=== PATIENT | male | born 1985 | race Caucasian/White ===

== ENCOUNTER → 2021-01-31 09:32 | Outpatient (CLI) | payer OTHER, SELFPAY | PROVIDERS: PCP Internal Medicine; Visit Provider Physician Assistant | DX: U07.1 COVID-19 (principal) | CPT/HCPCS: 87635; U0005; U0003 ==

== ENCOUNTER 2021-02-06 18:43 | Inpatient (IN) | payer OTHER, SELFPAY ==
[2021-02-06] VITALS (13 sets, daily range): BP systolic 100–149; BP diastolic 66–83; PULSE 83–127; RESP 12–52; TEMP 36–37.5; O2SAT 78–97; BMI 42.2; BMI 43.6
--- NOTE | 2021-02-06 18:53 | EKG12_ITS ---
Test Reason : SOB Blood Pressure : / mmHG Vent. Rate : 119 BPM Atrial Rate : 119 BPM P-R Int : 158 ms QRS Dur : 102 ms QT Int : 340 ms P-R-T Axes : 056 086 -02 degrees QTc Int : 478 ms Sinus tachycardia T wave abnormality, consider inferior ischemia Abnormal ECG Confirmed by TERA JAUREGUI, CHARLY ([id number]), graphics editor MARSHA CARMICHAEL ([id number]) on 02/11/2021 10:15:20 AM Referred By: DAE Confirmed By:CHARLY HALEY MD
--- NOTE | 2021-02-06 18:54 | ED.VIS.DYS ---
HPI History of Present Illness Chief Complaint: Shortness of Breath Informant: patient and spouse/S.O. Onset/Context/Timing Onset: Days Context: gradual Timing: Continuous Current Severity: Moderate Maximum Severity: Severe Worsened by: Exertion, Lying flat and Coughing Relieved by: Oxygen Associated Symptoms cough, fever and chills Chest Pain: Positive for None Narrative Narrative: 35-year-old male no sniffing past medical history. On 31 January he was diagnosed positive for Covid. He has been on no therapy. He is unvaccinated. He is not been treated with monoclonal antibodies nor is he been on any steroids. Is progressively gotten more short of breath. No chest pain. No hemoptysis. No prior history of DVT or PE or other risk factors. PE Risk Factors: Negative for Cancer, OCP + Smoking + > 35, Prior DVT or PE, Recent immobilization, Recent surgery and Recent travel Prior similar symptoms: No Recent Illness/Hospitalization: No PFSH PFSH Medical History Broken wrist Home Medications NK 09/20/20 [History Last Taken Unknown] Allergy/AdvReac Type Severity Reaction Status Date / Time No Known Allergies Allergy Verified 02/06/21 18:50 Family History Father Arthritis Grandfather Cancer Mother Hypertension Other Breast cancer Social History Smoking Status: Never smoker Smokeless tobacco user: chewing tobacco alcohol intake: current alcohol intake frequency: a few times a month Alcohol type: beer substance use type: does not use what type of physical activity do you participate in: none ROS ROS ED ROS Narrative Cough, shortness of breath and myalgias. Review of Systems ROS Unobtainable: Denies due to encephalopathy Constitutional Constitutional ED: Reports chills and fever(s) Eyes Eyes: Denies change in vision ENT ENT ED: Denies ear pain Cardiovascular Cardiovascular: Denies chest pain or palpitations Respiratory/Chest Respiratory/Chest: Reports cough and dyspnea Gastrointestinal Gastrointestinal: Denies abdominal pain, diarrhea, nausea or vomiting Genitourinary Genitourinary ED: Denies dysuria Musculoskeletal Musculoskeletal: Reports myalgias Integumentary Denies rash Neurologic Neurologic: Denies headache(s) Psychiatric Psychiatric: Denies depression Endocrine Endocrinology: Denies polyuria Hematologic/Lymphatic Hematologic/Lymphatic: Denies easy bruising Allergic/Immunologic Allergic/Immunologic ED: Denies urticaria EXAM Physical Exam Narrative Exam Narrative: 35-year-old male obviously hypoxic. Pulse ox 78%. Respiratory distress. Accelerated respiratory rate and pulse. HEENT exam unremarkable. Neck nontender no JVD. No lymphadenopathy. Lungs clear to auscultation bilaterally. Heart regular rhythm no murmur. Tachycardia rate about 127. Abdomen soft nontender. Moving all 4 extremities. Calves nontender without edema or cords. Neurologically, he is awake alert with no focal motor deficits. Const Vital Signs: 02/06/21 18:48 02/06/21 18:53 02/06/21 19:08 Temperature 97.7 F L Temperature Source Temporal Pulse Rate 127 H 118 H Respiratory Rate 52 H 44 H Respiratory Effort Short of Breath Labored Pursed Lip Respiratory Depth Respiratory Pattern Tachypnea Tachypnea Blood Pressure 149/83 H Blood Pressure Mean 105 Pulse Ox 78 96 Oxygen Delivery Method Non-Rebreather @ 15L/min Non-Rebreather Oxygen Flow Rate (L/min) 15 Fraction of Inspired Oxygen (FIO2) 90 02/06/21 19:13 02/06/21 19:15 02/06/21 20:10 Temperature 99.5 F H Temperature Source Temporal Pulse Rate 104 H Respiratory Rate 40 H Respiratory Effort Short of Breath Labored Respiratory Depth Deep Respiratory Pattern Tachypnea Blood Pressure 100/67 Blood Pressure Mean 78 Pulse Ox 97 Oxygen Delivery Method Bi-pap Bi-pap Oxygen Flow Rate (L/min) Fraction of Inspired Oxygen (FIO2) 100 80 100 02/06/21 20:49 02/06/21 20:51 02/06/21 21:10 Temperature 97.6 F L Temperature Source Temporal Pulse Rate 99 94 Respiratory Rate 43 H 38 H Respiratory Effort Respiratory Depth Respiratory Pattern Tachypnea Blood Pressure 126/80 H Blood Pressure Mean 95 Pulse Ox 96 94 Oxygen Delivery Method Bi-pap Oxygen Flow Rate (L/min) Fraction of Inspired Oxygen (FIO2) 80 65 Positive well nourished, well developed and obese; Negative for cachectic, contractures or unkempt General Appearance ED: well developed; Negative for unkempt, cachectic, contractures, NAD or pallor Nutritional Appearance: obese; Negative for cachectic HEENT Reports moist mucous membranes atraumatic; Negative for trauma or tenderness Eyes PERRL and EOMs intact bilaterally Neck no lymphadenopathy, supple, no meningeal signs and no JVD General: Negative for tenderness Resp No normal respiratory effort and clear to auscultation bilaterally Auscultation: Negative for rales, rhonchi or wheezes Cardio S1 normal heart sound, S2 normal heart sound and no murmurs; Negative for regular rate or regular rhythm Rate: tachycardic GI non-tender, non-distended and no masses Auscultation: normoactive bowel sounds Palpation: soft; Negative for tender, guarding or rebound tenderness present Back/Spine no CVA tenderness and normal to inspection General Back: Negative for CVA tenderness or tenderness Extremity normal to inspection General Extremety ED: Negative for edema or tenderness General Extremity: Negative for edema Neuro oriented x3 Sensorium / Orientation: alert, oriented to person and oriented to place; Negative for oriented to time, orientation impaired, confused, lethargic or stuporous Motor Exam: strength 5/5 throughout Psych mental status grossly normal Appearance: Negative for unkempt Mood & Affect: Negative for depressed or tearful Thought Process: normal thought process Skin no wounds General Skin Exam: Negative for jaundice or pallor Lesions: no lesions Rashes: no rashes MDM MDM MDM Narrative Medical decision making narrative: 35-year-old male history of Covid with respiratory distress and hypoxia. On 15 L he still hypoxic in the 80s will be placed on BiPAP. Also be given IV Decadron. He will need to be admitted. He will undergo chest x-ray and labs. If his D-dimer is elevated he will undergo a CTA. Repeat exam at 9:55 PM patient is doing a lot better on BiPAP. His oxygenation is now 95%. I went over test results with both he and his significant other in the room. I already spoken the hospitalist will be admitted to the ICU. We are awaiting the CTA of the chest results. Lab Data Attestation: I reviewed the patient's lab results. Lab results narrative: CBC shows a white count of 15.8. Hemoglobin 16. Platelets of 410. His D-dimer is elevated 4.1 therefore will order a CTA. Electrolytes show a gap at 9 and normal BUN and creatinine. Glucose of 139. Chest x-ray is consistent with Covid pneumonitis with bilateral infiltrates. Labs: Laboratory Results - last 24 hr 02/06/21 02/06/21 02/06/21 18:45 18:45 19:05 WBC 15.8 H RBC 5.52 Hgb 16.2 Hct 48.3 MCV 87.5 MCH 29.3 MCHC 33.5 RDW Std Deviation 44.3 H RDW Coeff of Kylie 13.9 Plt Count 410 MPV 9.8 Immature Gran % (Auto) 3.500 H Neut % (Auto) 80.1 H Lymph % (Auto) 11.1 L [place] % (Auto) 4.6 Eos % (Auto) 0.2 Baso % (Auto) 0.5 Absolute Neuts (auto) 12.7 H Absolute Lymphs (auto) 1.76 Nucleated RBC % 0.7 Differential Comment SCANNED D-Dimer Quant (PE/DVT) 4.12 H* Sodium 135 L Potassium 3.9 Chloride 103 Carbon Dioxide 23.0 Anion Gap 9 BUN 15 Creatinine 1.11 Estim Creat Clear Calc 89.86 Est GFR (MDRD) Af Amer 97 Est GFR (MDRD) Non-Af 80 BUN/Creatinine Ratio 13.5 Glucose 139 H Calcium 8.6 Radiography Chest X-Ray - ED: 1 View, Read by ED Physician, Heart, Mediastinum, Bony Structures, No Acute Disease, Chronic Changes, Right Infiltrate and Left Infiltrate Diagnostic Testing: Clinical Impression(s) from Imaging Studies Chest X-Ray 02/06/21 19:22 IMPRESSION: Hazy bilateral airspace disease consistent with Covid pneumonia. at 2023 Reported and signed by: Rashard Garcia MD Electronically Signed: Rashard Garcia MD at 20:22 EST Tel , Service support , Portable, single view chest x-ray interpreted by myself is consistent with bilateral infiltrates consistent with Covid pneumonitis. Rhythm Strip Rhythm Strip: Sinus Tach Rate: 119 Ectopy: None EKG Initial EKG: Attestation: I personally reviewed and interpreted this EKG as follows: Interpretation: Sinus Rhythm, No Acute Injury Pattern and Sinus Tachycardia Comments: Sinus tachycardia rate of 119 no acute signs of DE. He did have inverted T waves in lead III and aVF. No old EKG available for comparison. Critical Care Time Critical care time (excluding procedures): 30-74 minutes, Discussing w/Patient &/or Family/Information Services Tech, Discussing w/Consultants, Arranging Admission or Transfer, Performing Direct Patient Care at Bedside and - (35 min) Discharge Plan Dx/Rx/DC Orders Clinical Impression: Pneumonia due to COVID-19 virus, Hypoxia, Respiratory failure Disposition Disposition: Acute Care Hospital [facility]
[2021-02-06] MEDS: dexAMETHasone 20 MG/5 ML Vial IV (19:01)
[2021-02-06 19:16] LABS: Absolute Lymphocyte Count 1.76 X10^3/uL (0.83-4.51); Absolute Neutrophil Count 12.7 X10^3/uL (2.0-7.7); Basophil# 0.08 X10^3/uL; Basophil% 0.5 % (0-1); Eosinophil# 0.03 X10^3/uL; Eosinophils% 0.2 % (0-5); Hematocrit 48.3 % (40-54); Hemoglobin 16.2 g/dL (13.0-16.5); Lymphocyte # 1.76 X10^3/ul (0.83-4.51); Lymphocyte % 11.1 % (19-41); Mean Corp Hgb Conc 33.5 g/dL (32-36); Mean Corpuscular Hgb 29.3 pg (27.0-32.0); Mean Corpuscular Volume 87.5 fL (80-94); Mean Platelet Vol. 9.8 fl (6.2-12.0); Monocyte# 0.72 X10^3/uL; Monocyte% 4.6 % (0-10); NRBC Flagged by Analyzer 0.7 % (0-5); Neutrophil # 12.65 X10^3/uL (2.7-7.7); Neutrophil % 80.1 % (47-70); POSITIVE MORPHOLOGY YES; Platelet Count 410 K/mm3 (150-450); RBC Distribution Width CV 13.9 % (11.6-14.6); RBC Distribution Width SD 44.3 fl (35.1-43.9); Red Blood Count 5.52 M/mm3 (4.6-6.2); White Blood Count 15.8 K/mm3 (4.4-11.0)
[2021-02-06 19:17] LABS: Differential Indicated SCAN CRITERIA MET
--- NOTE | 2021-02-06 19:22 | RAD_ITS ---
HISTORY: covid. hypoxia EXAMINATION/TECHNIQUE: XR Chest 1 View: Portable upright AP chest x-ray COMPARISON: None FINDINGS: LINES/DEVICES: None. LUNGS: Hazy bilateral airspace opacities without consolidation or pleural effusion. No pneumothorax. MEDIASTINUM AND CARDIOVASCULAR STRUCTURES: Cardiac silhouette not enlarged. Central airways and mediastinal contour are unremarkable. BONES AND SOFT TISSUES: No acute bony abnormalities. RAD/Chest 1 View (Portable) IMPRESSION: Hazy bilateral airspace disease consistent with Covid pneumonia. at 2023 Reported and signed by: Rashard Garcia MD Electronically Signed: Rashard Garcia MD at 20:22 EST Tel , Service support ,
[2021-02-06 19:29] LABS: Anion Gap 9 (5-15); BUN 15 mg/dL (7-18); BUN/Creat Ratio 13.5 RATIO (10-20); Calcium,Total 8.6 mg/dL (8.5-10.1); Chloride 103 mmol/L (98-107); Creatinine, Serum 1.11 mg/dL (0.70-1.30); EST Glomerular Filtration Rate 80 mL/min (>60); Est Glom Filt Rate - Afr Amer 97 mL/min (>60); Estimated Creatinine Clearance 89.86 ml/min; Glucose 139 mg/dL (74-106); Potassium 3.9 mmol/L (3.5-5.1); Sodium Level 135 mmol/L (136-145)
[2021-02-06 19:53] LABS: D-Dimer Quantitative (DVT/PE) 4.12 FEU/ug/m (0.27-0.49)
--- NOTE | 2021-02-06 19:54 | ED.RN ---
dr ledezma aware of [facility] results.
[2021-02-06 19:57] LABS: Differential Comment SCANNED
--- NOTE | 2021-02-06 20:14 | CT_ITS ---
HISTORY: hypoxia. elevated d-dimer EXAMINATION: CTA Chest WO/W Contrast Injection TECHNIQUE: Helically acquired images were obtained of the chest following IV contrast as per pulmonary angiogram protocol with 3D reconstructions. A radiation dose optimization technique was used for this scan. IV Contrast dosage and agent: 100 CC ISOVUE 370 COMPARISON: None FINDINGS: LUNGS, PLEURA AND LARGE AIRWAYS: Extensive bilateral groundglass opacities with bibasilar consolidations. No pleural effusions or pneumothorax THYROID: No thyroid lesions. PULMONARY ARTERIES: Extensive breathing motion artifacts, no definite pulmonary embolism. AORTA AND GREAT VESSELS: No aneurysm or dissection. HEART AND PERICARDIUM: Heart size is normal. No pericardial effusion. MEDIASTINUM AND LAURO: Right hilar adenopathy. Esophagus is unremarkable. No hiatal hernia. UPPER ABDOMEN: No acute pathology. BONES: No acute or aggressive abnormality. CT/CTA Chest W/WO Contrast IMPRESSION: No definite pulmonary emboli. Study limited by multiple breathing motion artifacts. Extensive pulmonary findings with ARDS pattern. In the appropriate clinical setting this likely represents atypical or viral pneumonia. Individualized dose optimization techniques were used for this CT. at 2211 Reported and signed by: Rashard Garcia MD Electronically Signed: Rashard Garcia MD at 22:10 EST Tel , Service support ,
--- NOTE | 2021-02-06 21:58 | PCM.HP.STD ---
HPI - General General Date of Admission: 02/06/21 HPI Narrative ALYSON TORRE, is a 35 M with a significant history of morbid obesity who presents to the emergency department with progressive worsening Covid-like symptoms. Patient's covid-like symptoms has been going on for 13 to 14-day. He described the Covid-like symptoms as trouble breathing; myalgia; fever and dry cough. He had chills that has since gone away. He reports anosmia and poor appetite. Patient has dysgeusia, dry and cracked tongue. On the day of presentation patient had increase in shortness of breath. Per 's patient's lips and fingernails look blue blue so patient was brought to the emergency department. Patient tested Covid positive for Covid on 01/31/2021. [facility] Medical History Broken wrist Medical History no medical history Home Medications NK 09/20/20 [History Last Taken Unknown] Allergy/AdvReac Type Severity Reaction Status Date / Time No Known Allergies Allergy Verified 02/06/21 18:50 Family History Father Arthritis Grandfather Cancer Mother Hypertension Other Breast cancer Family History no significant family his Surgical History no surgical history Social History Smoking Status: Never smoker Smokeless tobacco user: chewing tobacco alcohol intake: current alcohol intake frequency: a few times a month Alcohol type: beer substance use type: does not use what type of physical activity do you participate in: none ROS ROS Narrative Constitutional: Reports fever, chills, fatigue, anorexia .denies change in weight Eyes: Denies blurry vision, change in eye color, change in vision, discharge from eye(s), double vision, erythema, eye pain, loss of vision or other HEENT: Denies abnormal hearing, dysphagia, ear pain, epistaxis, headache(s), hearing loss, nasal congestion, nasal discharge, post nasal drip, sinus pressure, sore throat or other Cardiovascular: Denies chest pain or palpitations. Denies dyspnea on exertion, orthopnea and paroxysmal nocturnal dyspnea Respiratory/Chest: Reports dry cough and shortness of breath. Gastrointestinal: Denies abdominal pain, coffee ground emesis, constipation, diarrhea, dyspepsia, hematemesis, hematochezia, loose stools, melena, nausea, vomiting or other Genitourinary: Denies burning urination, difficulty urinating, dysuria, hematuria, nocturia, urinary frequency, urinary hesitancy, urinary incontinence, urinary urgency or other Musculoskeletal: Denies arthralgias, back pain, joint pain, joint stiffness, joint swelling, myalgias, neck pain or other Neurologic: Denies abnormal gait, abnormal speech, confusion, disequilibrium, dizziness, focal weakness, headache(s), numbness, paresthesias, seizure-like activity, seizures, syncope, tingling, tremor(s) or other Psychiatric: Denies anxiety, depression, homicidal ideation, suicidal ideation or other Endocrinology: Denies change in body appearance, cold intolerance, excessive sweating, heat intolerance, polydipsia, polyuria or other Hematologic/Lymphatic: Denies anemia, easy bleeding, easy bruising, lymphadenopathy or other Integumentary: Denies rashes Allergic/Immunologic: Denies rhinitis, hives, eczema, asthma or other Vital Signs Vital Signs Vital Signs: 02/06/21 18:48 02/06/21 18:53 02/06/21 19:08 Temperature 97.7 F L Temperature Source Temporal Pulse Rate 127 H 118 H Respiratory Rate 52 H 44 H Respiratory Effort Short of Breath Labored Pursed Lip Respiratory Depth Respiratory Pattern Tachypnea Tachypnea Blood Pressure 149/83 H Blood Pressure Mean 105 Pulse Ox 78 96 Oxygen Delivery Method Non-Rebreather @ 15L/min Non-Rebreather Oxygen Flow Rate (L/min) 15 Fraction of Inspired Oxygen (FIO2) 90 02/06/21 19:13 02/06/21 19:15 02/06/21 20:10 Temperature 99.5 F H Temperature Source Temporal Pulse Rate 104 H Respiratory Rate 40 H Respiratory Effort Short of Breath Labored Respiratory Depth Deep Respiratory Pattern Tachypnea Blood Pressure 100/67 Blood Pressure Mean 78 Pulse Ox 97 Oxygen Delivery Method Bi-pap Bi-pap Oxygen Flow Rate (L/min) Fraction of Inspired Oxygen (FIO2) 100 80 100 02/06/21 20:49 02/06/21 20:51 02/06/21 21:10 Temperature 97.6 F L Temperature Source Temporal Pulse Rate 99 94 Respiratory Rate 43 H 38 H Respiratory Effort Respiratory Depth Respiratory Pattern Tachypnea Blood Pressure 126/80 H Blood Pressure Mean 95 Pulse Ox 96 94 Oxygen Delivery Method Bi-pap Oxygen Flow Rate (L/min) Fraction of Inspired Oxygen (FIO2) 80 65 Weight Weight: 126 kg Body Mass Index (BMI) 42.2 Physical Exam Narrative Physical exam: General: Well-nourished, well-developed. Head: Normocephalic, atraumatic, no tenderness Eyes: PERRLA, EOMI ENT, no trauma, moist mucous membranes, no rhinorrhea Neck: Nontender, full range of motion, no spinal tenderness, deformities, step-off CVS: Regular rate and rhythm. S1-S2 present. No murmur, gallop or rub. Respiratory : On BiPAP; tachypnea and rales. Abdomen: Soft, nontender, nondistended, normal bowel sounds, no masses : Deferred Back: Nontender, no CVA tenderness, no midline spinal tenderness, deformities, step-offs Extremities: Nontender full range of motion, no trauma Skin: Normal color, no trauma, abrasions Neuro: Alert, oriented, cranial nerves II through XII grossly intact. Psychiatry: Normal mood. Normal affect. Not depressed. Not anxious. Results Lab / Micro Data Result Diagrams: 02/07/21 03:52 02/07/21 04:54 Labs: Laboratory Results - last 24 hr 02/06/21 18:45: WBC 15.8 H, RBC 5.52, Hgb 16.2, Hct 48.3, MCV 87.5, MCH 29.3, MCHC 33.5, RDW Std Deviation 44.3 H, RDW Coeff of Kylie 13.9, Plt Count 410, MPV 9.8, Immature Gran % (Auto) 3.500 H, Neut % (Auto) 80.1 H, Lymph % (Auto) 11.1 L, [place] % (Auto) 4.6, Eos % (Auto) 0.2, Baso % (Auto) 0.5, Absolute Neuts (auto) 12.7 H, Absolute Lymphs (auto) 1.76, Nucleated RBC % 0.7, Differential Comment SCANNED 02/06/21 18:45: Sodium 135 L, Potassium 3.9, Chloride 103, Carbon Dioxide 23.0, Anion Gap 9, BUN 15, Creatinine 1.11, Estim Creat Clear Calc 89.86, Est GFR (MDRD) Af Amer 97, Est GFR (MDRD) Non-Af 80, BUN/Creatinine Ratio 13.5, Glucose 139 H, Calcium 8.6 02/06/21 19:05: D-Dimer Quant (PE/DVT) 4.12 H* Rhythm Strip Rhythm Strip: Sinus Tach Rate: 119 Ectopy: None Radiology Impression Chest X-Ray 02/06/21 19:22 IMPRESSION: Hazy bilateral airspace disease consistent with Covid pneumonia. at 3 Reported and signed by: Rashard Garcia MD Electronically Signed: Rashard Garcia MD at 20:22 EST Tel , Service support , Assessment & Plan Assessment/Plan (1) Pneumonia due to COVID-19 virus: (2) Respiratory failure with hypoxia: QUALIFIERS: Chronicity: acute Qualified Code(s): J96.01 - Acute respiratory failure with hypoxia PLAN: Acute hypoxemic respiratory failure secondary to SARS- COV 2 Tachypnea with respiratory rate as high as 37. Required BiPAP with FiO2 of 80%. Continue oxygen supplementation to keep oxygen saturation to at least 90%. Review of record showed that patient had positive Covid test on 01/31/2021. Chest x-ray and chest CT was independently interpreted and agree radiologist interpretation of multifocal infiltrates without any atrial dissection or pulmonary embolism. Received Decadron at the emergency department and continued. Will admit patient to intensive care unit and consult metal fabrication supervisor and blood or blood bank technician. N.p.o. while on BiPAP. Review of labs showed white count of 15.8 with bandemia of 3.5%; neutrophilia of 80% and lymphopenia of 11.1. D-dimer was elevated at 4.12, likely secondary to inflammation. Procalcitonin is unremarkable at 0.26. Trend CBC and CMP. Morbid Obesity. BMI: 37.4. Complicates care. Lifestyle modification recommended. DVT: Lovenox ordered Charges/Coding Visit Charges Inpatient E&M: 95699 Init Hosp L3
[2021-02-07] VITALS (32 sets, daily range): BP systolic 90–138; BP diastolic 72–106; PULSE 70–98; RESP 12–37; TEMP 36.4–36.8; O2SAT 88–97
--- NOTE | 2021-02-07 00:26 | NURSING ---
PANDEMIC DOCUMENTATION DATE: 02/06/21 TIME: 1420
[2021-02-07] MEDS: Enoxaparin 40 MG/0.4 ML Syringe SC ×3 (00:46→20:11)
[2021-02-07 01:02] LABS: Procalcitonin 0.26 ng/mL (0.00-0.09)
[2021-02-07] MEDS: Acetaminophen 325 MG Tablet 650 MG PO (02:10)
[2021-02-07 04:14] LABS: Absolute Lymphocyte Count 1.11 X10^3/uL (0.83-4.51); Absolute Neutrophil Count 9.8 X10^3/uL (2.0-7.7); Basophil# 0.08 X10^3/uL; Basophil% 0.7 % (0-1); Hematocrit 49.1 % (40-54); Hemoglobin 16.2 g/dL (13.0-16.5); Lymphocyte # 1.11 X10^3/ul (0.83-4.51); Lymphocyte % 9.5 % (19-41); Mean Corpuscular Hgb 28.9 pg (27.0-32.0); Mean Corpuscular Volume 87.7 fL (80-94); Monocyte# 0.28 X10^3/uL; Monocyte% 2.4 % (0-10); NRBC Flagged by Analyzer 0.3 % (0-5); Neutrophil # 9.75 X10^3/uL (2.7-7.7); Neutrophil % 83.5 % (47-70); POSITIVE MORPHOLOGY YES; Platelet Count 411 K/mm3 (150-450); RBC Distribution Width CV 14.7 % (11.6-14.6); RBC Distribution Width SD 46.1 fl (35.1-43.9); White Blood Count 11.7 K/mm3 (4.4-11.0)
[2021-02-07 04:16] LABS: Differential Indicated SCAN CRITERIA MET
[2021-02-07 04:31] LABS: Differential Comment SCANNED
[2021-02-07 05:21] LABS: ALB/GLOB Ratio 0.5 RATIO (0.9-2.4); AST(SGOT) 55 U/L (15-37); Alanine Aminotransfer ALT/SGPT 110 U/L (16-61); Albumin, Serum 2.7 g/dL (3.2-5.0); Alkaline Phosphatase 69 U/L (45-117); Anion Gap 11 (5-15); BUN 21 mg/dL (7-18); BUN/Creat Ratio 19.8 RATIO (10-20); Calcium,Total 8.6 mg/dL (8.5-10.1); Chloride 102 mmol/L (98-107); Creatinine, Serum 1.06 mg/dL (0.70-1.30); EST Glomerular Filtration Rate 84 mL/min (>60); Est Glom Filt Rate - Afr Amer 102 mL/min (>60); Globulin 5.6 g/dL (2.2-4.2); Glucose 151 mg/dL (74-106); Potassium 4.6 mmol/L (3.5-5.1); Protein, Total 8.3 g/dL (6.4-8.2); Sodium Level 137 mmol/L (136-145)
--- NOTE | 2021-02-07 07:38 | CON.PCM.CC_ITS ---
Assessment & Plan Assessment/Plan (1) Respiratory failure with hypoxia: QUALIFIERS: Chronicity: acute Qualified Code(s): J96.01 - Acute respiratory failure with hypoxia (2) Pneumonia due to COVID-19 virus: (3) Obesity (BMI 30-39.9): PLAN: RECOMMENDATIONS: 1. Continue Decadron. Monitor for complications 2. Check CRP to see if baricitinib would be helpful 3. Wean BiPAP FiO2 as tolerated 4. Hold on diuresis for now 5. Encourage Acapella, incentive spirometer and prone positioning as leo ated 6. Prophylactic anticoagulation for now 7. Check sputum culture for possible superinfection. Hold empiric antibiotics for now IMPRESSIONS: 1. Acute hypoxic respiratory failure secondary to ARDS secondary to COVID-19 Patient with very protracted presentation. Patient would not be a candidate for Remdesivir. Patient is appropriately on Decadron therapy. We will check a CRP to see if baricitinib would be helpful. Infectious diseases consulted. Continue to wean oxygen as tolerated. Patient may have an element of improvement following initiation of anti-inflammatories. We will hold on diuresis for now as patient appears to be volume neutral to slightly dehydrated. Would not recommend aggressive fluid resuscitation as this has been shown to worsen oxygenation. Will check a sputum culture as patient does have a leukocyt osis with protracted presentation. Leukocytosis may be a stress response, so we will hold off on empiric antibiotics for now unless patient acutely decompensates. Cannot exclude the patient may require intubation in the next 12 to 24 hours pending response to initial therapy. 2. Obesity/delayed presentation/nonvaccinated status Complicates care, management, recovery and prognosis. Patient will be at risk for hyperglycemia given obesity and steroid therapy. May initiate blood sugar checks if BMP shows elevation. TIME: 32 minutes critical care time spent addressing patient's acute hypoxic respiratory failure, review of all data and collaboration with care team HPI Consult Data Date of Consult: 02/07/21 HPI Narrative HPI Narrative: ALYSON TORRE is a 35 M, with no reported past medical history, who presents to [facility] secondary to progressive shortness of breath. Patient reportedly has had symptoms since January 24, but tested positive on January 31 for COVID-19. Patient is not vaccinated and reportedly did not receive monoclonal antibodies or steroids. Patient had gotten progressively more short of breath, but denied any chest pain or hemoptysis. Patient reportedly has had anosmia and poor appetite. Patient's fingernails reportedly looked blue, so was brought to the ER for evaluation. In the ER, patient was noted to be 78% on a nonrebreather, tachycardic at 127 bpm and tachypneic into the 50s. Patient was rapidly placed on BiPAP with improvement in respiratory effort. Laboratory work-up showed a white blood cell count of 15.8, hemoglobin of 16.2, D-dimer of 4.12 and a creatinine of 1.11. Chest x-ray showed bilateral hazy infiltrates and an EKG showed sinus tachycardia. Given elevated D-dimer, patient had a CTA of the chest showing no PE, but extensive bilateral groundglass opacities. Patient was given Decadron and admitted to the intensive care unit for further evaluation. Since being in the intensive care unit, patient reports subjective improvement in overall condition. Patient does report some dry mouth, sore throat and irritation with the BiPAP mask, but overall feels his breathing is much improved. Patient has been able to be weaned to 80% and is maintaining an appropriate saturation. Patient denies any previous pulmonary history. Patient has never been a smoker and denies any illicit drug use. Patient describes himself as a social drinker on a weekly basis. 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 Patient denies any history of asthma or COPD. Patient does not use any inhalers at baseline. Patient denies any chest trauma or history of previous pneumonias. Review of systems somewhat limited secondary to BiPAP, but review of systems otherwise negative from a constitutional, HEENT, respiratory, cardiovascular, GI, genitourinary, musculoskeletal, skin, neurologic, psychiatric and hematologic system unless stated above. [facility] Medical History Broken wrist Medical History no medical history Home Medications NK 09/20/20 [History Last Taken Unknown] Allergy/AdvReac Type Severity Reaction Status Date / Time No Known Allergies Allergy Verified 02/06/21 18:50 Family History Father Arthritis Grandfather Cancer Mother Hypertension Other Breast cancer Family History no significant family his Surgical History no surgical history Social History Smoking Status: Never smoker Smokeless tobacco user: chewing tobacco alcohol intake: current alcohol intake frequency: a few times a month Alcohol type: beer substance use type: does not use what type of physical activity do you participate in: none ROS ROS Narrative See HPI Physical Exam Const alert and oriented x3 General Appearance: cooperative, well developed, in distress Positive for mild and on BiPAP HEENT normocephalic and head/scalp atraumatic Mouth: dry mucous membranes and lip abnormal fissure Eyes PERRL, EOMs intact bilaterally and no scleral icterus Sclera: sclera abnormal Positive for bilateral Details: scleral injection Neck full ROM Lymph Lymphatic: no lymphadenopathy noted Chest inspection of chest normal Chest: symmetrical chest wall rise; Negative for crepitus Resp Auscultation: diminished lung sounds; Negative for rales, rhonchi or wheezes Percussion: Negative for dullness Cardio regular rhythm, S1 normal heart sound, S2 normal heart sound, no murmurs, no rub and no gallops Rate: tachycardic GI normal to inspection, nondistended, normoactive bowel sounds Extremity no clubbing, cyanosis or edema Skin no rashes or lesions noted Neuro oriented x3, CN's II-XII intact bilaterally, moves all extremities and no focal motor deficits Psych cooperative Lab / Micro Data Result Diagrams: 02/07/21 03:52 02/07/21 04:54 Labs: Laboratory Results - last 24 hr 02/06/21 18:45: WBC 15.8 H, RBC 5.52, Hgb 16.2, Hct 48.3, MCV 87.5, MCH 29.3, MCHC 33.5, RDW Std Deviation 44.3 H, RDW Coeff of Kylie 13.9, Plt Count 410, MPV 9.8, Immature Gran % (Auto) 3.500 H, Neut % (Auto) 80.1 H, Lymph % (Auto) 11.1 L , [place] % (Auto) 4.6, Eos % (Auto) 0.2, Baso % (Auto) 0.5, Absolute Neuts (auto) 12.7 H, Absolute Lymphs (auto) 1.76, Nucleated RBC % 0.7, Differential Comment SCANNED 02/06/21 18:45: Sodium 135 L, Potassium 3.9, Chloride 103, Carbon Dioxide 23.0, Anion Gap 9, BUN 15, Creatinine 1.11, Estim Creat Clear Calc 89.86, Est GFR (MDRD) Af Amer 97, Est GFR (MDRD) Non-Af 80, BUN/Creatinine Ratio 13.5, Glucose 139 H, Calcium 8.6 02/06/21 19:05: D-Dimer Quant (PE/DVT) 4.12 H* 02/07/21 00:26: Procalcitonin 0.26 H 02/07/21 03:52: WBC 11.7 H, RBC 5.60, Hgb 16.2, Hct 49.1, MCV 87.7, MCH 28.9, MCHC 33.0, RDW Std Deviation 46.1 H, RDW Coeff of Kylie 14.7 H, Plt Count 411, MPV 10.0, Immature Gran % (Auto) 3.900 H, Neut % (Auto) 83.5 H, Lymph % (Auto) 9.5 L , [place] % (Auto) 2.4, Eos % (Auto) 0.0, Baso % (Auto) 0.7, Absolute Neuts (auto) 9.8 H, Absolute Lymphs (auto) 1.11, Nucleated RBC % 0.3, Differential Comment SCANNED 02/07/21 03:52: Sodium Cancelled, Potassium Cancelled, Chloride Cancelled, Carbon Dioxide Cancelled, Anion Gap Cancelled, BUN Cancelled, Creatinine Cancelled, Estim Creat Clear Calc Cancelled, Est GFR (MDRD) Af Amer Cancelled, E st GFR (MDRD) Non-Af Cancelled, BUN/Creatinine Ratio Cancelled, Glucose Cancelled, Calcium Cancelled, Total Bilirubin Cancelled, AST Cancelled, ALT Cancelled, Alkaline Phosphatase Cancelled, Total Protein Cancelled, Albumin Cancelled, Globulin Cancelled, Albumin/Globulin Ratio Cancelled 02/07/21 04:54: Sodium 137, Potassium 4.6, Chloride 102, Carbon Dioxide 24.0, Anion Gap 11, BUN 21 H, Creatinine 1.06, Estim Creat Clear Calc 103.60, Est GFR (MDRD) Af Amer 102, Est GFR (MDRD) Non-Af 84, BUN/Creatinine Ratio 19.8, Glucose 151 H, Calcium 8.6, Total Bilirubin 1.00, AST 55 H, ALT 110 H, Alkaline Phosphatase 69, Total Protein 8.3 H, Albumin 2.7 L, Globulin 5.6 H, Albumin/Globulin Ratio 0.5 L Rhythm Strip Rhythm Strip: Sinus Tach Rate: 119 Ectopy: None Radiology Impression Chest X-Ray 02/06/21 19:22 IMPRESSION: Hazy bilateral airspace disease consistent with Covid pneumonia. at 2023 Reported and signed by: Rashard Garcia MD Electronically Signed: Rashard Garcia MD at 20:22 EST Tel , Service support , Chest CTA 02/06/21 20:14 IMPRESSION: No definite pulmonary emboli. Study limited by multiple breathing motion artifacts. Extensive pulmonary findings with ARDS pattern. In the appropriate clinical setting this likely represents atypical or viral pneumonia. Individualized dose optimization techniques were used for this CT. at 2211 Reported and signed by: Rashard Garcia MD Electronically Signed: Rashard Garcia MD at 22:10 EST Tel , Service support , Charges/Coding Procedures Hospitalists Procedures: [id number] [facility] Care 1st Hr
--- NOTE | 2021-02-07 10:05 | CASEMGMT ---
ETHEL CHEN called Ericka, for initial transition planning/care coordination assessment as patient is currently on continuous Bipap. ETHEL CHEN introduced self and role at [facility]. willing to participate in assessment and is able to answer all questions appropriately. Care providers, pharmacy, and demographics verified. wishes for patient to discharge home, will monitor progress with therapy. states she has no further needs or concerns at this time. CM to follow for discharge planning needs that may arise. PCP: Danyelle Specialists: none Preferred Pharmacy: [facility] Retail Insurance: [facility] [employer] Prescription Benefit: yes Living Will/HPOA: none LNOK: Living Arrangements: Patient lives with in a single story home with ramp to enter the home. Patient is independent at home. Transportation: self/ DME/HHC: Patient does not have DME, no previous HHC. Disposition Plan: TBD, by course of treatment and progress with therapy. Tisha STARK, RN, CM
--- NOTE | 2021-02-07 13:13 | PN.HOSP_ITS ---
Subjective Subjective Transitioned from BiPAP to air Vo this morning. Maintaining his oxygen saturations Objective Data Objective Data Vital Signs: Vital Signs Temp Pulse Resp BP Pulse Ox 97.6 F L 86 24 H 122/83 H 93 02/07/21 09:00 02/07/21 11:00 02/07/21 11:00 02/07/21 11:00 02/07/21 11:00 Oxygen Flow Rate (L/min) 15 Oxygen Delivery Method Airvo Weight: 268 lb 1.314 oz Body Mass Index (BMI) 43.6 Medical Nutrition Assessment Dietitian: Malnutrition Criteria Met Start: 02/07/21 12:41 Freq: Status: Active Protocol: Document 02/07/21 12:41 AG (Rec: 02/07/21 12:41 AG [id number]) Nutrition Malnutrition Evidence of Malnutrition Exists Yes Malnutrition (severe): Acute Illness/Injury Evidenced By Suboptimal Energy Intake ( Severe),Weight Loss (Severe) Clinical Problem Acute Disease or Injury Related Malnutrition Etiology severe, acute malnutrition r/t inadequate energy intake d/t COVID-19 illness Signs/Symptoms as evidenced by unintentional wt loss of 11.9#/4.25% x 2 weeks; estimated PO intake meeting <75% of estimated energy needs x 2 weeks Status Active Problem Recommendation Dietitian Recommendations/Changes Regular diet as medically indicated; recommend 4oz ensure compact w/ meals d/t acute malnutrition. Lab / Micro Data Result Diagrams: 02/07/21 03:52 02/07/21 04:54 Labs: Laboratory Results - last 24 hr 02/06/21 18:45: WBC 15.8 H, RBC 5.52, Hgb 16.2, Hct 48.3, MCV 87.5, MCH 29.3, MCHC 33.5, RDW Std Deviation 44.3 H, RDW Coeff of Kylie 13.9, Plt Count 410, MPV 9.8, Immature Gran % (Auto) 3.500 H, Neut % (Auto) 80.1 H, Lymph % (Auto) 11.1 L , [place] % (Auto) 4.6, Eos % (Auto) 0.2, Baso % (Auto) 0.5, Absolute Neuts (auto) 12.7 H, Absolute Lymphs (auto) 1.76, Nucleated RBC % 0.7, Differential Comment SCANNED 02/06/21 18:45: Sodium 135 L, Potassium 3.9, Chloride 103, Carbon Dioxide 23.0, Anion Gap 9, BUN 15, Creatinine 1.11, Estim Creat Clear Calc 89.86, Est GFR (MDRD) Af Amer 97, Est GFR (MDRD) Non-Af 80, BUN/Creatinine Ratio 13.5, Glucose 139 H, Calcium 8.6 02/06/21 19:05: D-Dimer Quant (PE/DVT) 4.12 H* 02/07/21 00:26: Procalcitonin 0.26 H 02/07/21 03:52: WBC 11.7 H, RBC 5.60, Hgb 16.2, Hct 49.1, MCV 87.7, MCH 28.9, MC HC 33.0, RDW Std Deviation 46.1 H, RDW Coeff of Kylie 14.7 H, Plt Count 411, MPV 10.0, Immature Gran % (Auto) 3.900 H, Neut % (Auto) 83.5 H, Lymph % (Auto) 9.5 L , [place] % (Auto) 2.4, Eos % (Auto) 0.0, Baso % (Auto) 0.7, Absolute Neuts (auto) 9.8 H, Absolute Lymphs (auto) 1.11, Nucleated RBC % 0.3, Differential Comment SCANNED 02/07/21 03:52: Sodium Cancelled, Potassium Cancelled, Chloride Cancelled, Carbon Dioxide Cancelled, Anion Gap Cancelled, BUN Cancelled, Creatinine Cancelled, Estim Creat Clear Calc Cancelled, Est GFR (MDRD) Af Amer Cancelled, Est GFR (MDRD) Non-Af Cancelled, BUN/Creatinine Ratio Cancelled, Glucose Cancelled, Calcium Cancelled, Total Bilirubin Cancelled, AST Cancelled, ALT Cancelled, Alkaline Phosphatase Cancelled, Total Protein Cancelled, Albumin Cancelled, Globulin Cancelled, Albumin/Globulin Ratio Cancelled 02/07/21 04:54: Sodium 137, Potassium 4.6, Chloride 102, Carbon Dioxide 24.0, Anion Gap 11, BUN 21 H, Creatinine 1.06, Estim Creat Clear Calc 103.60, Est GFR (MDRD) Af Amer 102, Est GFR (MDRD) Non-Af 84, BUN/Creatinine Ratio 19.8, Glucose 151 H, Calcium 8.6, Total Bilirubin 1.00, AST 55 H, ALT 110 H, Alkaline Phosphatase 69, Total Protein 8.3 H, Albumin 2.7 L, Globulin 5.6 H, Albumin/Globulin Ratio 0.5 L 02/07/21 04:59: C-React Prot Ext Range 162.00 H Radiography Diagnostic Testing: Radiology Impression Chest X-Ray 02/06/21 19:22 IMPRESSION: Hazy bilateral airspace disease consistent with Covid pneumonia. at 2023 Reported and signed by: Rashard Garcia MD Electronically Signed: Rashard Garcia MD at 20:22 EST Tel , Service support , Chest CTA 02/06/21 20:14 IMPRESSION: No definite pulmonary emboli. Study limited by multiple breathing motion artifacts. Extensive pulmonary findings with ARDS pattern. In the appropriate clinical setting this likely represents atypical or viral pneumonia. Individualized dose optimization techniques were used for this CT. at 2211 Reported and signed by: Rashard Garcia MD Electronically Signed: Rashard Garcia MD at 22:10 EST Tel , Service support , Rhythm Strip Rhythm Strip: Sinus Tach Rate: 119 Ectopy: None Physical Exam Const alert, oriented x3 and no apparent distress General Appearance: cooperative HEENT normocephalic and moist oral mucous membranes Eyes PERRL, EOMs intact bilaterally and conjunctivae normal Neck supple and no JVD Resp normal respiratory effort, no retractions and no use of accessory muscles Auscultation: diminished lung sounds; Negative for crackles, rales, rhonchi or wheezes Cardio regular rate, regular rhythm, S1 normal heart sound, S2 normal heart sound and no murmurs GI soft to palpation, non-tender and non-distended; Negative for hepatosplenomegaly Extremity no clubbing, cyanosis or edema Skin no rashes or lesions noted Neuro no focal motor deficits and no sensory deficits noted Psych affect normal Appearance: appropriate Assessment & Plan Assessment/Plan (1) Pneumonia due to COVID-19 virus: (2) Respiratory failure with hypoxia: QUALIFIERS: Chronicity: acute Qualified Code(s): J96.01 - Acute respiratory failure with hypoxia PLAN: 1. Acute hypoxic respiratory failure secondary to COVID-19 pneumonia ?She is unvaccinated ?Symptoms started a little over 2 weeks ago therefore is outside the window for remdesivir ?Continue with Decadron ?Obtain a CRP to determine necessity of baricitinib ?CTA negative for PEs DVT: Lovenox Charges/Coding Visit Charges Inpatient E&M: 96609 Subs Hosp L2
[2021-02-07] MEDS: 0.9% Saline Lock 10 ML Syringe IV ×2 (17:06→17:25)
[2021-02-07] MEDS: dexAMETHasone 10 MG/ML Vial 6 MG IV (17:25)
[2021-02-08] VITALS (25 sets, daily range): BP systolic 121–165; BP diastolic 67–91; PULSE 62–94; RESP 12–29; TEMP 36.4–36.7; O2SAT 90–98
[2021-02-08] MEDS: Acetaminophen 325 MG Tablet 650 MG PO (00:47)
[2021-02-08 04:32] LABS: Absolute Lymphocyte Count 1.28 X10^3/uL (0.83-4.51); Absolute Neutrophil Count 13.1 X10^3/uL (2.0-7.7); Basophil# 0.03 X10^3/uL; Basophil% 0.2 % (0-1); Hematocrit 43.1 % (40-54); Hemoglobin 14.3 g/dL (13.0-16.5); Lymphocyte # 1.28 X10^3/ul (0.83-4.51); Lymphocyte % 8.2 % (19-41); Mean Corp Hgb Conc 33.2 g/dL (32-36); Mean Corpuscular Hgb 29.2 pg (27.0-32.0); Mean Corpuscular Volume 88.1 fL (80-94); Mean Platelet Vol. 9.8 fl (6.2-12.0); Monocyte# 0.68 X10^3/uL; Monocyte% 4.4 % (0-10); NRBC Flagged by Analyzer 0.3 % (0-5); Neutrophil # 13.09 X10^3/uL (2.7-7.7); Neutrophil % 84.3 % (47-70); POSITIVE MORPHOLOGY YES; Platelet Count 436 K/mm3 (150-450); RBC Distribution Width CV 13.7 % (11.6-14.6); RBC Distribution Width SD 43.8 fl (35.1-43.9); Red Blood Count 4.89 M/mm3 (4.6-6.2); White Blood Count 15.5 K/mm3 (4.4-11.0)
[2021-02-08 04:40] LABS: Differential Indicated SCAN CRITERIA MET
[2021-02-08 04:57] LABS: Anion Gap 10 (5-15); BUN 30 mg/dL (7-18); BUN/Creat Ratio 32.8 RATIO (10-20); Calcium,Total 8.6 mg/dL (8.5-10.1); Chloride 102 mmol/L (98-107); Creatinine, Serum 0.92 mg/dL (0.70-1.30); EST Glomerular Filtration Rate 100 mL/min (>60); Est Glom Filt Rate - Afr Amer 121 mL/min (>60); Estimated Creatinine Clearance 119.36 ml/min; Glucose 139 mg/dL (74-106); Sodium Level 138 mmol/L (136-145)
[2021-02-08 05:27] LABS: Anisocytosis RARE; Atypical Lymphocyte RARE %; Differential Comment SCANNED; Macrocytosis RARE; Polychromasia RARE
[2021-02-08] MEDS: dexAMETHasone 10 MG/ML Vial 6 MG IV (08:07)
[2021-02-08] MEDS: Enoxaparin 40 MG/0.4 ML Syringe SC ×2 (08:07→21:48)
--- NOTE | 2021-02-08 09:39 | PCM.PN.INT ---
Assessment & Plan Assessment/Plan (1) Respiratory failure with hypoxia: QUALIFIERS: Chronicity: acute Qualified Code(s): J96.01 - Acute respiratory failure with hypoxia (2) Pneumonia due to COVID-19 virus: (3) Obesity (BMI 30-39.9): PLAN: RECOMMENDATIONS: 1. Continue Decadron. Monitor for complications 2. Initiate baricitinib if okay with ID 3. Continue BiPAP with sleep for now 4. Hold on diuresis for now 5. Encourage Acapella, incentive spirometer and prone positioning as tolerated 6. Prophylactic anticoagulation for now 7. Check sputum culture for possible superinfection. Hold empiric antibiotics for now 8. Okay to leave the intensive care unit from my perspective IMPRESSIONS: 1. Acute hypoxic respiratory failure secondary to ARDS secondary to COVID-19 Patient with very protracted presentation. Patient would not be a candidate for Remdesivir. Patient is appropriately on Decadron therapy. We will check a CRP to see if baricitinib would be helpful. Infectious diseases consulted. Continue to wean oxygen as tolerated. Patient may have an element of improvement following initiation of anti-inflammatories. We will hold on diuresis for now as patient appears to be volume neutral to slightly dehydrated. Would not recommend aggressive fluid resuscitation as this has been shown to worsen oxygenation. Will check a sputum culture as patient does have a leukocytosis with protracted presentation. Leukocytosis may be a stress response, so we will hold off on empiric antibiotics for now unless patient acutely decompensates. Patient appears to be much improved at this time. Clinical suspicion for improvement of recruitment leading to improved oxygenation. Okay to leave the intensive care unit from my perspective 2. Obesity/delayed presentation/nonvaccinated status Complicates care, management, recovery and prognosis. Patient will be at risk for hyperglycemia given obesity and steroid therapy. May initiate blood sugar checks if BMP shows elevation. Subjective Subjective Patient did well overnight. Patient was able to be on BiPAP while sleeping, but has been down to 70% on his Airvo. It does not appear the patient was seen by infectious disease yesterday. Patient subjectively feels improved compared to previous. Patient has reported a cough that is nonproductive. Objective Data Objective Data Vital Signs: Vital Signs Temp Pulse Resp BP Pulse Ox 36.7 C 79 13 141/73 H 96 02/08/21 08:00 02/08/21 09:00 02/08/21 09:00 02/08/21 09:00 02/08/21 09:00 Oxygen Flow Rate (L/min) 60 Oxygen Delivery Method Airvo Weight: 120.7 kg Body Mass Index (BMI) 43.6 Intake & Output: Intake and Output for Last 24 Hours 02/06/21 02/07/21 02/08/21 23:59 23:59 23:59 Intake Total 120 / 570 650 / 650 Output Total 1200 / 1200 Balance -1080 / -630 650 / 650 Medical Nutrition Assessment Dietitian: Malnutrition Criteria Met Start: 02/07/21 12:41 Freq: Status: Active Protocol: Document 02/07/21 12:41 AG (Rec: 02/07/21 12:41 AG [id number]) Nutrition Malnutrition Evidence of Malnutrition Exists Yes Malnutrition (severe): Acute Illness/Injury Evidenced By Suboptimal Energy Intake ( Severe),Weight Loss (Severe) Clinical Problem Acute Disease or Injury Related Malnutrition Etiology severe, acute malnutrition r/t inadequate energy intake d/t COVID-19 illness Signs/Symptoms as evidenced by unintentional wt loss of 11.9#/4.25% x 2 weeks; estimated PO intake meeting <75% of estimated energy needs x 2 weeks Status Active Problem Recommendation Dietitian Recommendations/Changes Regular diet as medically indicated; recommend 4oz ensure compact w/ meals d/t acute malnutrition. Lab / Micro Data Result Diagrams: 02/08/21 03:56 02/08/21 03:56 Labs: Laboratory Results - last 24 hr 02/08/21 03:56: WBC 15.5 H, RBC 4.89, Hgb 14.3, Hct 43.1, MCV 88.1, MCH 29.2, MCHC 33.2, RDW Std Deviation 43.8, RDW Coeff of Kylie 13.7, Plt Count 436, MPV 9.8, Immature Gran % (Auto) 2.900 H, Neut % (Auto) 84.3 H, Lymph % (Auto) 8.2 L, [place] % (Auto) 4.4, Eos % (Auto) 0.0, Baso % (Auto) 0.2, Absolute Neuts (auto) 13.1 H, Absolute Lymphs (auto) 1.28, Nucleated RBC % 0.3, Differential Comment SCANNED, Atypical Lymphocytes RARE, Polychromasia RARE, Anisocytosis RARE, Macrocytosis RARE 02/08/21 03:56: Sodium 138, Potassium 4.0, Chloride 102, Carbon Dioxide 26.0, Anion Gap 10, BUN 30 H, Creatinine 0.92, Estim Creat Clear Calc 119.36, Est GFR (MDRD) Af Amer 121, Est GFR (MDRD) Non-Af 100, BUN/Creatinine Ratio 32.8 H, Glucose 139 H, Calcium 8.6 Rhythm Strip Rhythm Strip: Sinus Tach Rate: 119 Ectopy: None Physical Exam Const alert, oriented x3 and no apparent distress Constitutional Narrative: On Airvo General Appearance: cooperative and well developed HEENT normocephalic and head/scalp atraumatic Mouth: dry mucous membranes and lip abnormal fissure Eyes PERRL, EOMs intact bilaterally and no scleral icterus Sclera: sclera abnormal Positive for bilateral Details: scleral injection Neck full ROM Lymph Lymphatic: no lymphadenopathy noted Chest inspection of chest normal Chest: symmetrical chest wall rise; Negative for crepitus Resp Auscultation: diminished lung sounds; Negative for rales, rhonchi or wheezes Percussion: Negative for dullness Cardio regular rhythm, S1 normal heart sound, S2 normal heart sound, no murmurs, no rub and no gallops Rate: tachycardic GI normal to inspection, nondistended, normoactive bowel sounds Extremity no clubbing, cyanosis or edema Skin no rashes or lesions noted Neuro oriented x3, CN's II-XII intact bilaterally, moves all extremities and no focal motor deficits Psych cooperative Charges/Coding Visit Charges Inpatient E&M: 28444 Subs Hosp L3
--- NOTE | 2021-02-08 10:14 | CON.PCM.ID_ITS ---
Assessment & Plan Assessment/Plan (1) Pneumonia due to COVID-19 virus: PLAN: I agree with low-dose dexamethasone and DVT prophylaxis. I did discuss with the patient of the use of baricitinib in this clinical setting evaristo ecially with high O2 requirements, patient is agreeable to this medication. We will start baricitinib 4 mg daily for 2 weeks. HPI Consult Data Date of Consult: 02/08/21 HPI Narrative HPI Narrative: ALYSON TORRE, is a 35 M who presents increasing shortness of breath over the past 2 weeks and was diagnosed with Covid on January 31. Patient with significant hypoxemia and currently requiring high flow nasal cannula. Currently in the ICU. Chest x-ray shows bilateral infiltrates. Patient has not been vaccinated against COVID-19. Patient was admitted and started on low-dose dexamethasone plus low molecular weight heparin for DVT prophylaxis. Patient denies any contacts of any ill persons recently. No history of tobacco use or any underlying lung disease. [facility]LY [facility] Medical History Broken wrist Medical History no medical history Home Medications NK 09/20/20 [History Last Taken Unknown] Allergy/AdvReac Type Severity Reaction Status Date / Time No Known Allergies Allergy Verified 02/06/21 18:50 Family History Father Arthritis Grandfather Cancer Mother Hypertension Other Breast cancer Family History no significant family his Surgical History no surgical history Social History Smoking Status: Never smoker Smokeless tobacco user: chewing tobacco alcohol intake: current alcohol intake frequency: a few times a month Alcohol t ype: beer substance use type: does not use what type of physical activity do you participate in: none Physical Exam Narrative Alert responsive on high flow nasal cannula lungs with some scattered rhonchi heart exam S1-S2 abdomen is obese but soft Medical Records Data Medical Nutrition Assessment Dietitian: Malnutrition Criteria Met Start: 02/07/21 12:41 Freq: Status: Active Protocol: Document 02/07/21 12:41 AG (Rec: 02/07/21 12:41 [id number]) Nutrition Malnutrition Evidence of Malnutrition Exists Yes Malnutrition (severe): Acute Illness/Injury Evidenced By Suboptimal Energy Intake ( Severe),Weight Loss (Severe) Clinical Problem Acute Disease or Injury Related Malnutrition Etiology severe, acute malnutrition r/t inadequate energy intake d/t COVID-19 illness Signs/Symptoms as evidenced by unintentional wt loss of 11.9#/4.25% x 2 weeks; estimated PO intake meeting <75% of estimated energy needs x 2 weeks Status Active Problem Recommendation Dietitian Recommendations/Changes Regular diet as medically indicated; recommend 4oz ensure compact w/ meals d/t acute malnutrition. Lab / Micro Data Result Diagrams: 02/08/21 03:56 02/08/21 03:56 Labs: Laboratory Results - last 24 hr 02/08/21 03:56: WBC 15.5 H, RBC 4.89, Hgb 14.3, Hct 43.1, MCV 88.1, MCH 29.2, MCHC 33.2, RDW Std Deviation 43.8, RDW Coeff of Kylie 13.7, Plt Count 436, MPV 9.8, Immature Gran % (Auto) 2.900 H, Neut % (Auto) 84.3 H, Lymph % (Auto) 8.2 L, [place] % (Auto) 4.4, Eos % (Auto) 0.0, Baso % (Auto) 0.2, Absolute Neuts (auto) 13.1 H, Absolute Lymphs (auto) 1.28, Nucleated RBC % 0.3, Differential Comment SCANNED, Atypical Lymphocytes RARE, Polychromasia RARE, Anisocytosis RARE, Macrocytosis RARE 02/08/21 03:56: Sodium 138, Potassium 4.0, Chloride 102, Carbon Dioxide 26.0, Anion Gap 10, BUN 30 H, Creatinine 0.92, Estim Creat Clear Calc 119.36, Est GFR (MDRD) Af Amer 121, Est GFR (MDRD) Non-Af 100, BUN/Creatinine Ratio 32.8 H, Glucose 139 H, Calcium 8.6 Rhythm Strip Rhythm Strip: Sinus Tach Rate: 119 Ectopy: None
--- NOTE | 2021-02-08 10:23 | PN.HOSP_ITS ---
Subjective Subjective Patient seen and examined. He remains on AirVO. He has no active complaints and feels his breathing is improving. Review of systems is otherwise negative. Objective Data Objective Data Vital Signs: Vital Signs Temp Pulse Resp BP Pulse Ox 98.1 F 81 16 143/67 H 97 02/08/21 08:00 02/08/21 10:00 02/08/21 10:00 02/08/21 10:00 02/08/21 10:00 Oxygen Flow Rate (L/min) 60 Oxygen Delivery Method Airvo Weight: 266 lb 1.567 oz Body Mass Index (BMI) 43.6 Intake & Output: Intake and Output for Last 24 Hours 02/06/21 02/07/21 02/08/21 23:59 23:59 23:59 Intake Total 120 / 570 650 / 650 Output Total 1200 / 1200 Balance -1080 / -630 650 / 650 Medical Nutrition Assessment Dietitian: Malnutrition Criteria Met Start: 02/07/21 12:41 Freq: Status: Active Protocol: Document 02/08/21 10:14 LOUIE (Rec: 02/08/21 10:14 LOUIE [id number]) Nutrition Malnutrition Evidence of Malnutrition Exists Yes Malnutrition (severe): Acute Illness/Injury Evidenced By Suboptimal Energy Intake ( Severe),Weight Loss (Severe) Clinical Problem Acute Disease or Injury Related Malnutrition Etiology severe, acute malnutrition r/t inadequate energy intake d/t COVID-19 illness Signs/Symptoms as evidenced by unintentional wt loss of 5.2% x 2 weeks; 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 Lab / Micro Data Result Diagrams: 02/08/21 03:56 02/08/21 03:56 Labs: Laboratory Results - last 24 hr 02/08/21 03:56: WBC 15.5 H, RBC 4.89, Hgb 14.3, Hct 43.1, MCV 88.1, MCH 29.2, MCHC 33.2, RDW Std Deviation 43.8, RDW Coeff of Kylie 13.7, Plt Count 436, MPV 9.8, Immature Gran % (Auto) 2.900 H, Neut % (Auto) 84.3 H, Lymph % (Auto) 8.2 L, [place] % (Auto) 4.4, Eos % (Auto) 0.0, Baso % (Auto) 0.2, Absolute Neuts (auto) 13.1 H, Absolute Lymphs (auto) 1.28, Nucleated RBC % 0.3, Differential Comment SCANNED, Atypical Lymphocytes RARE, Polychromasia RARE, Anisocytosis RARE, Macrocytosis RARE 02/08/21 03:56: Sodium 138, Potassium 4.0, Chloride 102, Carbon Dioxide 26.0, Anion Gap 10, BUN 30 H, Creatinine 0.92, Estim Creat Clear Calc 119.36, Est GFR (MDRD) Af Amer 121, Est GFR (MDRD) Non-Af 100, BUN/Creatinine Ratio 32.8 H, Glucose 139 H, Calcium 8.6 Rhythm Strip Rhythm Strip: Sinus Tach Rate: 119 Ectopy: None Physical Exam Const alert, oriented x3 and no apparent distress Exam Limitations: no limitations HEENT head/scalp atraumatic and moist oral mucous membranes Head and Scalp: normocephalic Eyes PERRL, EOMs intact bilaterally and conjunctivae normal Neck no lymphadenopathy Resp Resp Narrative: diminished breath sounds bibasally, no wheezes or crackles. On Airvo Cardio regular rate, regular rhythm, S1 normal heart sound, S2 normal heart sound and no murmurs GI normal to inspection, nondistended, normoactive bowel sounds, soft to palpation and non-tender Extremity normal to inspection, full ROM and no clubbing, cyanosis or edema Peripheral Pulses: Yes pulses 2+ throughout Skin no rashes or lesions noted Neuro oriented x3, CN's II-XII intact bilaterally and moves all extremities Sensorium / Orientation: awake and alert Psych affect normal Assessment & Plan Assessment/Plan (1) Respiratory failure with hypoxia: QUALIFIERS: Chronicity: acute Qualified Code(s): J96.01 - Acute respiratory failure with hypoxia (2) Pneumonia due to COVID-19 virus: (3) Severe malnutrition: PLAN: #Acute hypoxic respiratory failure due to COVID 19 pneumonia * transitioned from BIPAP to AirVo today * ID and pulmonology on board * on decadron * CTA was negative for PE * on baricitinib * #DVT prophylaxis: lovenox 40mg bid Charges/Coding Visit Charges Inpatient E&M: 90008 Subs Hosp L3
--- NOTE | 2021-02-08 11:26 | NURSING ---
Report called to Nguyen DAVENPORT on PCU. jesenia updated of transfer.
--- NOTE | 2021-02-08 12:00 | NURSING ---
This RN is taking over care at this time.
[2021-02-09] VITALS (11 sets, daily range): BP systolic 104–141; BP diastolic 67–75; PULSE 61–98; RESP 18–20; TEMP 36.3–36.7; O2SAT 93–97
--- NOTE | 2021-02-09 02:03 | PCS.PANDOC ---
PANDEMIC DOCUMENTATION INITIATED: Date: 10/01/2020 Time: 190
[2021-02-09 06:05] LABS: Absolute Lymphocyte Count 1.49 X10^3/uL (0.83-4.51); Absolute Neutrophil Count 10.3 X10^3/uL (2.0-7.7); Basophil# 0.02 X10^3/uL; Basophil% 0.2 % (0-1); Eosinophil# 0.08 X10^3/uL; Eosinophils% 0.6 % (0-5); Hematocrit 41.3 % (40-54); Hemoglobin 13.6 g/dL (13.0-16.5); Lymphocyte # 1.49 X10^3/ul (0.83-4.51); Lymphocyte % 11.8 % (19-41); Mean Corp Hgb Conc 32.9 g/dL (32-36); Mean Corpuscular Hgb 29.4 pg (27.0-32.0); Mean Corpuscular Volume 89.4 fL (80-94); Mean Platelet Vol. 9.5 fl (6.2-12.0); Monocyte# 0.49 X10^3/uL; Monocyte% 3.9 % (0-10); NRBC Flagged by Analyzer 0.2 % (0-5); Neutrophil # 10.29 X10^3/uL (2.7-7.7); Neutrophil % 81.2 % (47-70); Platelet Count 387 K/mm3 (150-450); RBC Distribution Width CV 13.8 % (11.6-14.6); RBC Distribution Width SD 44.4 fl (35.1-43.9); Red Blood Count 4.62 M/mm3 (4.6-6.2); White Blood Count 12.7 K/mm3 (4.4-11.0)
[2021-02-09 06:35] LABS: Anion Gap 7 (5-15); BUN 26 mg/dL (7-18); BUN/Creat Ratio 30.5 RATIO (10-20); Calcium,Total 8.4 mg/dL (8.5-10.1); Chloride 105 mmol/L (98-107); Creatinine, Serum 0.85 mg/dL (0.70-1.30); EST Glomerular Filtration Rate 108 mL/min (>60); Est Glom Filt Rate - Afr Amer 131 mL/min (>60); Estimated Creatinine Clearance 129.19 ml/min; Glucose 96 mg/dL (74-106); Potassium 3.9 mmol/L (3.5-5.1); Sodium Level 139 mmol/L (136-145)
[2021-02-09 06:40] LABS: AST(SGOT) 40 U/L (15-37); Alanine Aminotransfer ALT/SGPT 103 U/L (16-61); Albumin, Serum 2.5 g/dL (3.2-5.0); Alkaline Phosphatase 42 U/L (45-117); Bilirubin, Direct 0.12 mg/dL (0.00-0.30); Globulin 4.4 g/dL (2.2-4.2); Protein, Total 6.9 g/dL (6.4-8.2)
--- NOTE | 2021-02-09 08:14 | PN.CC_ITS ---
Assessment & Plan Assessment/Plan (1) Respiratory failure with hypoxia: QUALIFIERS: Chronicity: acute Qualified Code(s): J96.01 - Acute respiratory failure with hypoxia (2) Pneumonia due to COVID-19 virus: (3) Obesity (BMI 30-39.9): PLAN: RECOMMENDATIONS: 1. Continue Decadron and baricitinib. Monitor for complications 2. Challenge with diuretics 3. Possibly discontinue BiPAP if able to tolerate sleep tonight without decreased recruitment 4. Increase activity as tolerated 5. Encourage Acapella, incentive spirometer and prone positioning as tolerated 6. Prophylactic anticoagulation for now IMPRESSIONS: 1. Acute hypoxic respiratory failure secondary to ARDS secondary to COVID-19 Patient with very protracted presentation. Patient would not be a candidate for Remdesivir. Patient is appropriately on Decadron and baricitinib. Infectious diseases consulted. Continue to wean oxygen as tolerated. Patient may have an element of improvement following initiation of anti-inflammatories. We will challenge patient with diuretics. Would not recommend aggressive fluid resuscitation as this has been shown to worsen oxygenation. Will check a sputum culture as patient does have a leukocytosis with protracted presentation. L eukocytosis may be a stress response, so we will hold off on empiric antibiotics for now unless patient acutely decompensates. Patient appears to be much improved at this time. Clinical suspicion for improvement of recruitment leading to improved oxygenation. 2. Obesity/delayed presentation/nonvaccinated status Complicates care, management, recovery and prognosis. Patient will be at risk for hyperglycemia given obesity and steroid therapy. May initiate blood sugar checks if BMP shows elevation. Subjective Subjective Patient did okay overnight. Patient did not require BiPAP rescue. Patient overall feels subjectively slightly improved compared to yesterday. Patient has had improvement in oxygen requirements compared to yesterday. No epistaxis or chest pain is reported. Objective Data Objective Data Vital Signs: Vital Signs Temp Pulse Resp BP Pulse Ox 36.6 C 63 19 H 127/67 H 96 02/09/21 03:00 02/09/21 07:34 02/09/21 03:00 02/09/21 03:00 02/09/21 03:09 Oxygen Flow Rate (L/min) 60 Oxygen Delivery Method Airvo Weight: 124.6 kg Body Mass Index (BMI) 43.6 Intake & Output: Intake and Output for Last 24 Hours 02/07/21 02/08/21 02/09/21 23:59 23:59 23:59 Intake Total 120 / 570 1750 / 1750 100 / 100 Output Total 1200 / 1200 500 / 500 Balance -1080 / -630 1250 / 1250 100 / 100 Medical Nutrition Assessment Dietitian: Malnutrition Criteria Met Start: 02/07/21 12:41 Freq: Status: Active Protocol: Document 02/08/21 10:14 LOUIE (Rec: 02/08/21 10:14 LOUIE [id number]) Nutrition Malnutrition Evidence of Malnutrition Exists Yes Malnutrition (severe): Acute Illness/Injury Evidenced By Suboptimal Energy Intake ( Severe),Weight Loss (Severe) Clinical Problem Acute Disease or Injury Related Malnutrition Etiology severe, acute malnutrition r/t inadequate energy intake d/t COVID-19 illness Signs/Symptoms as evidenced by unintentional wt loss of 5.2% x 2 weeks; 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 Lab / Micro Data Result Diagrams: 02/09/21 05:33 02/09/21 05:33 Labs: Laboratory Results - last 24 hr 02/09/21 05:33: WBC 12.7 H, RBC 4.62, Hgb 13.6, Hct 41.3, MCV 89.4, MCH 29.4, MCHC 32.9, RDW Std Deviation 44.4 H, RDW Coeff of Kylie 13.8, Plt Count 387, MPV 9.5, Immature Gran % (Auto) 2.300 H, Neut % (Auto) 81.2 H, Lymph % (Auto) 11.8 L , [place] % (Auto) 3.9, Eos % (Auto) 0.6, Baso % (Auto) 0.2, Absolute Neuts (auto) 10.3 H, Absolute Lymphs (auto) 1.49, Nucleated RBC % 0.2 02/09/21 05:33: Sodium 139, Potassium 3.9, Chloride 105, Carbon Dioxide 27.0, Anion Gap 7, BUN 26 H, Creatinine 0.85, Estim Creat Clear Calc 129.19, Est GFR (MDRD) Af Amer 131, Est GFR (MDRD) Non-Af 108, BUN/Creatinine Ratio 30.5 H, Glucose 96, Calcium 8.4 L 02/09/21 05:33: Total Bilirubin 0.70, Direct Bilirubin 0.12, AST 40 H, ALT 103 H , Alkaline Phosphatase 42 L, Total Protein 6.9, Albumin 2.5 L, Globulin 4.4 H Rhythm Strip Rhythm Strip: Sinus Tach Rate: 119 Ectopy: None Physical Exam Const alert, oriented x3 and no apparent distress Constitutional Narrative: On Airvo General Appearance: cooperative and well developed HEENT normocephalic and head/scalp atraumatic Mouth: dry mucous membranes and lip abnormal fissure Eyes PERRL, EOMs intact bilaterally and no scleral icterus Sclera: sclera normal Neck full ROM Lymph Lymphatic: no lymphadenopathy noted Chest inspection of chest normal Chest: symmetrical chest wall rise; Negative for crepitus Resp Auscultation: diminished lung sounds; Negative for rales, rhonchi or wheezes Percussion: Negative for dullness Cardio regular rhythm, S1 normal heart sound, S2 normal heart sound, no murmurs, no rub and no gallops Rate: regular rate GI normal to inspection, nondistended, normoactive bowel sounds Extremity no clubbing, cyanosis or edema Skin no rashes or lesions noted Neuro oriented x3, CN's II-XII intact bilaterally, moves all extremities and no focal motor deficits Psych cooperative Charges/Coding Visit Charges Inpatient E&M: 63075 Subs Hosp L3
[2021-02-09] MEDS: dexAMETHasone 10 MG/ML Vial 6 MG IV (09:36)
[2021-02-09] MEDS: 0.9% Saline Lock 10 ML Syringe IV (09:37)
[2021-02-09] MEDS: Enoxaparin 40 MG/0.4 ML Syringe SC ×2 (09:39→22:49)
[2021-02-09] MEDS: Furosemide 40 MG Tablet PO (09:39)
--- NOTE | 2021-02-09 10:48 | PN.HOSP_ITS ---
Subjective Subjective Patient seen and examined. He remains on air Vo. He has no active complaints today. Review of systems otherwise negative. Objective Data Objective Data Vital Signs: Vital Signs Temp Pulse Resp BP Pulse Ox 97.9 F 63 19 H 127/67 H 96 02/09/21 03:00 02/09/21 07:34 02/09/21 03:00 02/09/21 03:00 02/09/21 03:09 Oxygen Flow Rate (L/min) 60 Oxygen Delivery Method Airvo Weight: 274 lb 11.135 oz Body Mass Index (BMI) 43.6 Intake & Output: Intake and Output for Last 24 Hours 02/07/21 02/08/21 02/09/21 23:59 23:59 23:59 Intake Total 120 / 570 1750 / 1750 100 / 100 Output Total 1200 / 1200 500 / 500 Balance -1080 / -630 1250 / 1250 100 / 100 Medical Nutrition Assessment Dietitian: Malnutrition Criteria Met Start: 02/07/21 12:41 Freq: Status: Active Protocol: Document 02/08/21 10:14 LOUIE (Rec: 02/08/21 10:14 LOUIE [id number]) Nutrition Malnutrition Evidence of Malnutrition Exists Yes Malnutrition (severe): Acute Illness/Injury Evidenced By Suboptimal Energy Intake ( Severe),Weight Loss (Severe) Clinical Problem Acute Disease or Injury Related Malnutrition Etiology severe, acute malnutrition r/t inadequate energy intake d/t COVID-19 illness Signs/Symptoms as evidenced by unintentional wt loss of 5.2% x 2 weeks; 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 Lab / Micro Data Result Diagrams: 02/09/21 05:33 02/09/21 05:33 Labs: Laboratory Results - last 24 hr 02/09/21 05:33: WBC 12.7 H, RBC 4.62, Hgb 13.6, Hct 41.3, MCV 89.4, MCH 29.4, MCHC 32.9, RDW Std Deviation 44.4 H, RDW Coeff of Kylie 13.8, Plt Count 387, MPV 9.5, Immature Gran % (Auto) 2.300 H, Neut % (Auto) 81.2 H, Lymph % (Auto) 11.8 L , [place] % (Auto) 3.9, Eos % (Auto) 0.6, Baso % (Auto) 0.2, Absolute Neuts (auto) 10.3 H, Absolute Lymphs (auto) 1.49, Nucleated RBC % 0.2 02/09/21 05:33: Sodium 139, Potassium 3.9, Chloride 105, Carbon Dioxide 27.0, Anion Gap 7, BUN 26 H, Creatinine 0.85, Estim Creat Clear Calc 129.19, Est GFR (MDRD) Af Amer 131, Est GFR (MDRD) Non-Af 108, BUN/Creatinine Ratio 30.5 H, Glucose 96, Calcium 8.4 L 02/09/21 05:33: Total Bilirubin 0.70, Direct Bilirubin 0.12, AST 40 H, ALT 103 H , Alkaline Phosphatase 42 L, Total Protein 6.9, Albumin 2.5 L, Globulin 4.4 H Rhythm Strip Rhythm Strip: Sinus Tach Rate: 119 Ectopy: None Physical Exam Const alert, oriented x3 and no apparent distress General Appearance: cooperative Exam Limitations: no limitations HEENT normocephalic, head/scalp atraumatic and moist oral mucous membranes Head and Scalp: normocephalic Eyes PERRL, EOMs intact bilaterally and conjunctivae normal Neck no lymphadenopathy, supple and no JVD Resp normal respiratory effort, no retractions and no use of accessory muscles Resp Narrative: diminished breath sounds bibasally, no wheezes or crackles. On Airvo Auscultation: diminished lung sounds; Negative for crackles, rales, rhonchi or wheezes Cardio regular rate, regular rhythm, S1 normal heart sound, S2 normal heart sound and no murmurs GI normal to inspection, nondistended, normoactive bowel sounds, soft to palpation, non-tender and non-distended; Negative for hepatosplenomegaly Extremity normal to inspection, full ROM and no clubbing, cyanosis or edema Peripheral Pulses: Yes pulses 2+ throughout Skin no rashes or lesions noted Neuro oriented x3, CN's II-XII intact bilaterally, moves all extremities, no focal motor deficits and no sensory deficits noted Sensorium / Orientation: awake and alert Psych affect normal Appearance: appropriate Assessment & Plan Assessment/Plan (1) Respiratory failure with hypoxia: QUALIFIERS: Chronicity: acute Qualified Code(s): J96.01 - Acute respiratory failure with hypoxia (2) Pneumonia due to COVID-19 virus: (3) Severe malnutrition: PLAN: #Acute hypoxic respiratory failure due to COVID 19 pneumonia * remains on AirVo, wth FiO2 of 66% * on decadron * CTA was negative for PE * on baricitinib * #DVT prophylaxis: lovenox 40mg bid Charges/Coding Visit Charges Inpatient E&M: 50521 Subs Hosp L2
[2021-02-10] VITALS (12 sets, daily range): BP systolic 117–124; BP diastolic 71–76; PULSE 75–87; RESP 18–20; TEMP 36.3–36.9; O2SAT 84–96
[2021-02-10 06:16] LABS: Absolute Lymphocyte Count 1.76 X10^3/uL (0.83-4.51); Absolute Neutrophil Count 9.2 X10^3/uL (2.0-7.7); Basophil# 0.03 X10^3/uL; Basophil% 0.2 % (0-1); Eosinophil# 0.27 X10^3/uL; Eosinophils% 2.2 % (0-5); Hematocrit 41.7 % (40-54); Hemoglobin 13.6 g/dL (13.0-16.5); Lymphocyte # 1.76 X10^3/ul (0.83-4.51); Lymphocyte % 14.6 % (19-41); Mean Corp Hgb Conc 32.6 g/dL (32-36); Mean Corpuscular Hgb 29.2 pg (27.0-32.0); Mean Corpuscular Volume 89.5 fL (80-94); Mean Platelet Vol. 9.3 fl (6.2-12.0); Monocyte# 0.51 X10^3/uL; Monocyte% 4.2 % (0-10); NRBC Flagged by Analyzer 0 % (0-5); Neutrophil # 9.23 X10^3/uL (2.7-7.7); Neutrophil % 76.8 % (47-70); Platelet Count 365 K/mm3 (150-450); RBC Distribution Width CV 13.6 % (11.6-14.6); RBC Distribution Width SD 43.9 fl (35.1-43.9); Red Blood Count 4.66 M/mm3 (4.6-6.2)
[2021-02-10 06:28] LABS: Anion Gap 5 (5-15); BUN 22 mg/dL (7-18); BUN/Creat Ratio 22.6 RATIO (10-20); Calcium,Total 8.7 mg/dL (8.5-10.1); Chloride 106 mmol/L (98-107); Creatinine, Serum 0.97 mg/dL (0.70-1.30); EST Glomerular Filtration Rate 93 mL/min (>60); Est Glom Filt Rate - Afr Amer 112 mL/min (>60); Estimated Creatinine Clearance 113.21 ml/min; Glucose 86 mg/dL (74-106); Potassium 4.8 mmol/L (3.5-5.1); Sodium Level 139 mmol/L (136-145)
[2021-02-10 06:36] LABS: AST(SGOT) 46 U/L (15-37); Alanine Aminotransfer ALT/SGPT 100 U/L (16-61); Albumin, Serum 2.5 g/dL (3.2-5.0); Alkaline Phosphatase 43 U/L (45-117); Bilirubin, Direct 0.12 mg/dL (0.00-0.30); Globulin 4.4 g/dL (2.2-4.2); Protein, Total 6.9 g/dL (6.4-8.2)
[2021-02-10] MEDS: 0.9% Saline Lock 10 ML Syringe IV (08:20)
[2021-02-10] MEDS: Furosemide 40 MG/4 ML Vial IV (08:20)
[2021-02-10] MEDS: Enoxaparin 40 MG/0.4 ML Syringe SC ×2 (08:22→20:44)
[2021-02-10] MEDS: dexAMETHasone 10 MG/ML Vial 6 MG IV (08:22)
--- NOTE | 2021-02-10 08:30 | PCM.PN.INT ---
Assessment & Plan Assessment/Plan (1) Respiratory failure with hypoxia: QUALIFIERS: Chronicity: acute Qualified Code(s): J96.01 - Acute respiratory failure with hypoxia (2) Pneumonia due to COVID-19 virus: (3) Obesity (BMI 30-39.9): PLAN: RECOMMENDATIONS: 1. Continue Decadron and baricitinib. Monitor for complications 2. Challenge with diuretics as labs allow 3. Possibly discontinue BiPAP if able to tolerate sleep tonight without decreased recruitment 4. Increase activity as tolerated 5. Encourage Acapella, incentive spirometer and prone positioning as tolerated 6. Prophylactic anticoagulation for now IMPRESSIONS: 1. Acute hypoxic respiratory failure secondary to ARDS secondary to COVID-19 Patient with very protracted presentation. Patient can come out of isolation on 02/14/2021. Patient would not be a candidate for Remdesivir given protracted presentation. Patient is appropriately on Decadron and baricitinib. Infectious diseases consulted. Continue to wean oxygen as tolerated. Patient may have an element of improvement following initiation of anti-inflammatories. We will challenge patient with diuretics. Would not recommend aggressive fluid resuscitation as this has been shown to worsen oxygenation. Patient unable to provide a sputum sample for culture. Leukocytosis may be a stress response, so we will hold off on empiric antibiotics for now unless patient acutely decompensates. Patient appears to be much improved at this time. Clinical suspicion for improvement of recruitment leading to improved oxygenation. 2. Obesity/delayed presentation/nonvaccinated status Complicates care, management, recovery and prognosis. Patient will be at risk for hyperglycemia given obesity and steroid therapy. May initiate blood sugar checks if BMP shows elevation. Subjective Subjective Patient reports subjective improvement in overall condition. Patient has been weaned to nasal cannula oxygen, but desaturated into the 60s with ambulation to the bathroom. Patient is not reporting any chest pain. Patient does report global muscle fatigue, but attributes this to his low oxygen. Objective Data Objective Data Vital Signs: Vital Signs Temp Pulse Resp BP Pulse Ox 36.9 C 76 18 123/74 H 90 02/10/21 04:20 02/10/21 07:09 02/10/21 04:20 02/10/21 04:20 02/10/21 07:40 Oxygen Flow Rate (L/min) 14 Oxygen Delivery Method Nasal Cannula Weight: 124.7 kg Body Mass Index (BMI) 43.6 Intake & Output: Intake and Output for Last 24 Hours 02/08/21 02/09/21 02/10/21 23:59 23:59 23:59 Intake Total 1750 / 1750 1540 / 1540 0 / 0 Output Total 500 / 500 1600 / 1600 Balance 1250 / 1250 -60 / -60 0 / 0 Medical Nutrition Assessment Dietitian: Malnutrition Criteria Met Start: 02/07/21 12:41 Freq: Status: Active Protocol: Document 02/08/21 10:14 LOUIE (Rec: 02/08/21 10:14 LOUIE [id number]) Nutrition Malnutrition Evidence of Malnutrition Exists Yes Malnutrition (severe): Acute Illness/Injury Evidenced By Suboptimal Energy Intake ( Severe),Weight Loss (Severe) Clinical Problem Acute Disease or Injury Related Malnutrition Etiology severe, acute malnutrition r/t inadequate energy intake d/t COVID-19 illness Signs/Symptoms as evidenced by unintentional wt loss of 5.2% x 2 weeks; 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 Lab / Micro Data Result Diagrams: 02/10/21 05:40 02/10/21 05:40 Labs: Laboratory Results - last 24 hr 02/10/21 05:40: WBC 12.0 H, RBC 4.66, Hgb 13.6, Hct 41.7, MCV 89.5, MCH 29.2, MCHC 32.6, RDW Std Deviation 43.9, RDW Coeff of Kylie 13.6, Plt Count 365, MPV 9.3, Immature Gran % (Auto) 2.000 H, Neut % (Auto) 76.8 H, Lymph % (Auto) 14.6 L, [place] % (Auto) 4.2, Eos % (Auto) 2.2, Baso % (Auto) 0.2, Absolute Neuts (auto) 9.2 H, Absolute Lymphs (auto) 1.76, Nucleated RBC % 0 02/10/21 05:40: Sodium 139, Potassium 4.8, Chloride 106, Carbon Dioxide 28.0, Anion Gap 5, BUN 22 H, Creatinine 0.97, Estim Creat Clear Calc 113.21, Est GFR (MDRD) Af Amer 112, Est GFR (MDRD) Non-Af 93, BUN/Creatinine Ratio 22.6 H, Glucose 86, Calcium 8.7 02/10/21 05:40: Total Bilirubin 0.70, Direct Bilirubin 0.12, AST 46 H, ALT 100 H, Alkaline Phosphatase 43 L, Total Protein 6.9, Albumin 2.5 L, Globulin 4.4 H Rhythm Strip Rhythm Strip: Sinus Tach Rate: 119 Ectopy: None Physical Exam Const alert, oriented x3 and no apparent distress Constitutional Narrative: On nasal cannula. Chuckie appearance. General Appearance: cooperative and well developed HEENT normocephalic and head/scalp atraumatic Mouth: dry mucous membranes and lip abnormal fissure Eyes PERRL, EOMs intact bilaterally and no scleral icterus Sclera: sclera normal Neck full ROM Lymph Lymphatic: no lymphadenopathy noted Chest inspection of chest normal Chest: symmetrical chest wall rise; Negative for crepitus Resp Auscultation: diminished lung sounds; Negative for rales, rhonchi or wheezes Percussion: Negative for dullness Cardio regular rhythm, S1 normal heart sound, S2 normal heart sound, no murmurs, no rub and no gallops Rate: regular rate GI normal to inspection, nondistended, normoactive bowel sounds Extremity no clubbing, cyanosis or edema Skin no rashes or lesions noted Neuro oriented x3, CN's II-XII intact bilaterally, moves all extremities and no focal motor deficits Psych cooperative Charges/Coding Visit Charges Inpatient E&M: 28636 Subs Hosp L2
--- NOTE | 2021-02-10 09:38 | PN.HOSP_ITS ---
Subjective Subjective Patient seen and examined. He had been weaned off AirVo and is now on 13L of oxygen by nasal canula. He has no complaints and review of systems is otherwise negative. Objective Data Objective Data Vital Signs: Vital Signs Temp Pulse Resp BP Pulse Ox 98.4 F 76 18 123/74 H 90 02/10/21 04:20 02/10/21 07:09 02/10/21 04:20 02/10/21 04:20 02/10/21 07:40 Oxygen Flow Rate (L/min) 13 Oxygen Delivery Method Airvo Weight: 274 lb 14.663 oz Body Mass Index (BMI) 43.6 Intake & Output: Intake and Output for Last 24 Hours 02/08/21 02/09/21 02/10/21 23:59 23:59 23:59 Intake Total 1750 / 1750 1540 / 1540 0 / 0 Output Total 500 / 500 1600 / 1600 Balance 1250 / 1250 -60 / -60 0 / 0 Medical Nutrition Assessment Dietitian: Malnutrition Criteria Met Start: 02/07/21 12:41 Freq: Status: Active Protocol: Document 02/08/21 10:14 LOUIE (Rec: 02/08/21 10:14 LOUIE [id number]) Nutrition Malnutrition Evidence of Malnutrition Exists Yes Malnutrition (severe): Acute Illness/Injury Evidenced By Suboptimal Energy Intake ( Severe),Weight Loss (Severe) Clinical Problem Acute Disease or Injury Related Malnutrition Etiology severe, acute malnutrition r/t inadequate energy intake d/t COVID-19 illness Signs/Symptoms as evidenced by unintentional wt loss of 5.2% x 2 weeks; estimated PO intake meeting < 75% 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 Lab / Micro Data Result Diagrams: 02/10/21 05:40 02/10/21 05:40 Labs: Laboratory Results - last 24 hr 02/10/21 05:40: WBC 12.0 H, RBC 4.66, Hgb 13.6, Hct 41.7, MCV 89.5, MCH 29.2, MCHC 32.6, RDW Std Deviation 43.9, RDW Coeff of Kylie 13.6, Plt Count 365, MPV 9.3, Immature Gran % (Auto) 2.000 H, Neut % (Auto) 76.8 H, Lymph % (Auto) 14.6 L , [place] % (Auto) 4.2, Eos % (Auto) 2.2, Baso % (Auto) 0.2, Absolute Neuts (auto) 9.2 H, Absolute Lymphs (auto) 1.76, Nucleated RBC % 0 02/10/21 05:40: Sodium 139, Potassium 4.8, Chloride 106, Carbon Dioxide 28.0, Anion Gap 5, BUN 22 H, Creatinine 0.97, Estim Creat Clear Calc 113.21, Est GFR (MDRD) Af Amer 112, Est GFR (MDRD) Non-Af 93, BUN/Creatinine Ratio 22.6 H, Glucose 86, Calcium 8.7 02/10/21 05:40: Total Bilirubin 0.70, Direct Bilirubin 0.12, AST 46 H, ALT 100 H , Alkaline Phosphatase 43 L, Total Protein 6.9, Albumin 2.5 L, Globulin 4.4 H Rhythm Strip Rhythm Strip: Sinus Tach Rate: 119 Ectopy: None Physical Exam Const alert, oriented x3 and no apparent distress General Appearance: cooperative Exam Limitations: no limitations HEENT normocephalic, head/scalp atraumatic and moist oral mucous membranes Head and Scalp: normocephalic Eyes PERRL, EOMs intact bilaterally and conjunctivae normal Neck no lymphadenopathy, supple and no JVD Resp Resp Narrative: diminished breath sounds bibasally, no wheezes or crackles. On 13L of oxygen by nasal canula Auscultation: diminished lung sounds; Negative for crackles, rales, rhonchi or wheezes Cardio regular rate, regular rhythm, S1 normal heart sound, S2 normal heart sound and no murmurs GI normal to inspection, nondistended, normoactive bowel sounds, soft to palpation, non-tender and non-distended; Negative for hepatosplenomegaly Extremity normal to inspection, full ROM and no clubbing, cyanosis or edema Peripheral Pulses: Yes pulses 2+ throughout Skin no rashes or lesions noted Neuro oriented x3, CN's II-XII intact bilaterally, moves all extremities, no focal motor deficits and no sensory deficits noted Sensorium / Orientation: awake and alert Psych affect normal Appearance: appropriate Assessment & Plan Assessment/Plan (1) Respiratory failure with hypoxia: QUALIFIERS: Chronicity: acute Qualified Code(s): J96.01 - Acute respiratory failure with hypoxia (2) Pneumonia due to COVID-19 virus: (3) Severe malnutrition: PLAN: #Acute hypoxic respiratory failure due to COVID 19 pneumonia * now off AirVO, and is on 13L of oxygen by nasal canula * on decadron * CTA was negative for PE * on baricitinib * #DVT prophylaxis: lovenox 40mg bid Charges/Coding Visit Charges Inpatient E&M: 16425 Subs Hosp L2
[2021-02-11] VITALS (10 sets, daily range): BP systolic 111–122; BP diastolic 59–76; PULSE 67–101; RESP 18; TEMP 36.1–36.6; O2SAT 92–98
[2021-02-11 07:32] LABS: Absolute Lymphocyte Count 2.15 X10^3/uL (0.83-4.51); Absolute Neutrophil Count 8.1 X10^3/uL (2.0-7.7); Basophil# 0.05 X10^3/uL; Basophil% 0.4 % (0-1); Eosinophil# 0.29 X10^3/uL; Eosinophils% 2.5 % (0-5); Hematocrit 43.3 % (40-54); Lymphocyte # 2.15 X10^3/ul (0.83-4.51); Lymphocyte % 18.7 % (19-41); Mean Corp Hgb Conc 32.3 g/dL (32-36); Mean Corpuscular Hgb 28.9 pg (27.0-32.0); Mean Corpuscular Volume 89.5 fL (80-94); Mean Platelet Vol. 9.4 fl (6.2-12.0); Monocyte# 0.58 X10^3/uL; NRBC Flagged by Analyzer 0 % (0-5); Neutrophil # 8.09 X10^3/uL (2.7-7.7); Neutrophil % 70.4 % (47-70); Platelet Count 395 K/mm3 (150-450); RBC Distribution Width CV 13.2 % (11.6-14.6); RBC Distribution Width SD 43.1 fl (35.1-43.9); Red Blood Count 4.84 M/mm3 (4.6-6.2); White Blood Count 11.5 K/mm3 (4.4-11.0)
[2021-02-11 07:56] LABS: Anion Gap 6 (5-15); BUN 26 mg/dL (7-18); BUN/Creat Ratio 27.8 RATIO (10-20); Calcium,Total 8.9 mg/dL (8.5-10.1); Chloride 102 mmol/L (98-107); Creatinine, Serum 0.93 mg/dL (0.70-1.30); EST Glomerular Filtration Rate 97 mL/min (>60); Est Glom Filt Rate - Afr Amer 118 mL/min (>60); Estimated Creatinine Clearance 118.08 ml/min; Glucose 88 mg/dL (74-106); Potassium 4.6 mmol/L (3.5-5.1); Sodium Level 137 mmol/L (136-145)
[2021-02-11] MEDS: dexAMETHasone 10 MG/ML Vial 6 MG IV (09:23)
[2021-02-11] MEDS: 0.9% Saline Lock 10 ML Syringe IV (09:23)
[2021-02-11] MEDS: Enoxaparin 40 MG/0.4 ML Syringe SC ×2 (09:23→21:00)
--- NOTE | 2021-02-11 10:31 | PN.HOSP_ITS ---
Subjective Subjective Patient seen and examined. He feels his breathing is getting better he has no active complaints overnight. Review of symptoms otherwise negative. He is on 8 L of oxygen today. Objective Data Objective Data Vital Signs: Vital Signs Temp Pulse Resp BP Pulse Ox 97.6 F L 89 18 111/59 L 92 02/11/21 09:10 02/11/21 09:10 02/11/21 09:10 02/11/21 09:10 02/11/21 09:10 Oxygen Flow Rate (L/min) 8 Oxygen Delivery Method Nasal Cannula Weight: 273 lb 13.026 oz Body Mass Index (BMI) 43.6 Intake & Output: Intake and Output for Last 24 Hours 02/09/21 02/10/21 02/11/21 23:59 23:59 23:59 Intake Total 1540 / 1540 1959 240 / 240 Output Total 1600 / 1600 Balance -60 / -60 1959 240 / 240 Medical Nutrition Assessment Dietitian: Malnutrition Criteria Met Start: 02/07/21 12:41 Freq: Status: Active Protocol: Document 02/08/21 10:14 LOUIE (Rec: 02/08/21 10:14 [facility] [id number]) Nutrition Malnutrition Evidence of Malnutrition Exists Yes Malnutrition (severe): Acute Illness/Injury Evidenced By Suboptimal Energy Intake ( Severe),Weight Loss (Severe) Clinical Problem Acute Disease or Injury Related Malnutrition Etiology severe, acute malnutrition r/t inadequate energy intake d/t COVID-19 illness Signs/Symptoms as evidenced by unintentional wt loss of 5.2% x 2 weeks; 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 Lab / Micro Data Result Diagrams: 02/11/21 07:04 02/11/21 07:04 Labs: Laboratory Results - last 24 hr 02/11/21 07:04: WBC 11.5 H, RBC 4.84, Hgb 14.0, Hct 43.3, MCV 89.5, MCH 28.9, MCHC 32.3, RDW Std Deviation 43.1, RDW Coeff of Kylie 13.2, Plt Count 395, MPV 9.4, Immature Gran % (Auto) 3.000 H, Neut % (Auto) 70.4 H, Lymph % (Auto) 18.7 L , [place] % (Auto) 5.0, Eos % (Auto) 2.5, Baso % (Auto) 0.4, Absolute Neuts (auto) 8.1 H, Absolute Lymphs (auto) 2.15, Nucleated RBC % 0 02/11/21 07:04: Sodium 137, Potassium 4.6, Chloride 102, Carbon Dioxide 29.0, Anion Gap 6, BUN 26 H, Creatinine 0.93, Estim Creat Clear Calc 118.08, Est GFR (MDRD) Af Amer 118, Est GFR (MDRD) Non-Af 97, BUN/Creatinine Ratio 27.8 H, Glucose 88, Calcium 8.9 Rhythm Strip Rhythm Strip: Sinus Tach Rate: 119 Ectopy: None Physical Exam Const alert, oriented x3 and no apparent distress General Appearance: cooperative Exam Limitations: no limitations HEENT normocephalic, head/scalp atraumatic and moist oral mucous membranes Head and Scalp: normocephalic Eyes PERRL, EOMs intact bilaterally and conjunctivae normal Neck no lymphadenopathy, supple and no JVD Resp Resp Narrative: diminished breath sounds bibasally, no wheezes or crackles. On 8L of oxygen by nasal canula Auscultation: diminished lung sounds; Negative for crackles, rales, rhonchi or wheezes Cardio regular rate, regular rhythm, S1 normal heart sound, S2 normal heart sound and no murmurs GI normal to inspection, nondistended, normoactive bowel sounds, soft to palpation, non-tender and non-distended; Negative for hepatosplenomegaly Extremity normal to inspection, full ROM and no clubbing, cyanosis or edema Skin no rashes or lesions noted Neuro oriented x3, CN's II-XII intact bilaterally, moves all extremities, no focal motor deficits and no sensory deficits noted Sensorium / Orientation: awake and alert Psych affect normal Appearance: appropriate Assessment & Plan Assessment/Plan (1) Respiratory failure with hypoxia: QUALIFIERS: Chronicity: acute Qualified Code(s): J96.01 - Acute respiratory failure with hypoxia (2) Pneumonia due to COVID-19 virus: (3) Severe malnutrition: PLAN: #Acute hypoxic respiratory failure due to COVID 19 pneumonia * on 8L of oxygen today. * on decadron and baricitinib * CTA was negative for PE * titrate oxygen to maintain sats >90%. Breathing treatment with bronchodilators * #DVT prophylaxis: lovenox 40mg bid Charges/Coding Visit Charges Inpatient E&M: 93570 Subs Hosp L2
[2021-02-12] VITALS (9 sets, daily range): BP systolic 103–126; BP diastolic 65–75; PULSE 54–90; RESP 16–18; TEMP 35.8–36.6; O2SAT 94–96
[2021-02-12 07:25] LABS: Absolute Lymphocyte Count 2.14 X10^3/uL (0.83-4.51); Absolute Neutrophil Count 7.8 X10^3/uL (2.0-7.7); Basophil# 0.05 X10^3/uL; Basophil% 0.4 % (0-1); Eosinophil# 0.13 X10^3/uL; Eosinophils% 1.2 % (0-5); Hematocrit 43.4 % (40-54); Hemoglobin 14.1 g/dL (13.0-16.5); Lymphocyte # 2.14 X10^3/ul (0.83-4.51); Lymphocyte % 19.2 % (19-41); Mean Corp Hgb Conc 32.5 g/dL (32-36); Mean Corpuscular Hgb 28.8 pg (27.0-32.0); Mean Corpuscular Volume 88.8 fL (80-94); Mean Platelet Vol. 9.2 fl (6.2-12.0); Monocyte# 0.75 X10^3/uL; Monocyte% 6.7 % (0-10); NRBC Flagged by Analyzer 0 % (0-5); Neutrophil # 7.83 X10^3/uL (2.7-7.7); Neutrophil % 70.3 % (47-70); Platelet Count 409 K/mm3 (150-450); RBC Distribution Width CV 13.2 % (11.6-14.6); RBC Distribution Width SD 42.6 fl (35.1-43.9); Red Blood Count 4.89 M/mm3 (4.6-6.2); White Blood Count 11.2 K/mm3 (4.4-11.0)
[2021-02-12 07:54] LABS: Anion Gap 5 (5-15); BUN 22 mg/dL (7-18); BUN/Creat Ratio 28.6 RATIO (10-20); Calcium,Total 8.8 mg/dL (8.5-10.1); Chloride 102 mmol/L (98-107); Creatinine, Serum 0.77 mg/dL (0.70-1.30); EST Glomerular Filtration Rate 122 mL/min (>60); Est Glom Filt Rate - Afr Amer 147 mL/min (>60); Estimated Creatinine Clearance 142.61 ml/min; Glucose 88 mg/dL (74-106); Potassium 4.7 mmol/L (3.5-5.1); Sodium Level 136 mmol/L (136-145)
[2021-02-12] MEDS: dexAMETHasone 10 MG/ML Vial 6 MG IV (08:19)
[2021-02-12] MEDS: Enoxaparin 40 MG/0.4 ML Syringe SC ×2 (08:19→21:57)
--- NOTE | 2021-02-12 10:36 | PN.HOSP_ITS ---
Subjective Subjective Patient seen and examined. He has no active complaints. He is on 7L of oxygen. He has no active complaints. REview of systems is otherwise negative. Objective Data Objective Data Vital Signs: Vital Signs Temp Pulse Resp BP Pulse Ox 97.9 F 76 18 103/66 95 02/12/21 08:13 02/12/21 08:13 02/12/21 08:13 02/12/21 08:13 02/12/21 08:13 Oxygen Flow Rate (L/min) 7 Oxygen Delivery Method High Flow Weight: 270 lb 15.17 oz Body Mass Index (BMI) 43.6 Intake & Output: Intake and Output for Last 24 Hours 02/10/21 02/11/21 02/12/21 23:59 23:59 23:59 Intake Total 1959 1200 / 1200 Balance 1959 1200 / 1200 Medical Nutrition Assessment Dietitian: Malnutrition Criteria Met Start: 02/07/21 12:41 Freq: Status: Active Protocol: Document 02/08/21 10:14 LOUIE (Rec: 02/08/21 10:14 LOUIE [id number]) Nutrition Malnutrition Evidence of Malnutrition Exists Yes Malnutrition (severe): Acute Illness/Injury Evidenced By Suboptimal Energy Intake ( Severe),Weight Loss (Severe) Clinical Problem Acute Disease or Injury Related Malnutrition Etiology severe, acute malnutrition r/t inadequate energy intake d/t COVID-19 illness Signs/Symptoms as evidenced by unintentional wt loss of 5.2% x 2 weeks; 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 Lab / Micro Data Result Diagrams: 02/12/21 07:00 02/12/21 07:00 Labs: Laboratory Results - last 24 hr 02/12/21 07:00: WBC 11.2 H, RBC 4.89, Hgb 14.1, Hct 43.4, MCV 88.8, MCH 28.8, MCHC 32.5, RDW Std Deviation 42.6, RDW Coeff of Kylie 13.2, Plt Count 409, MPV 9.2, Immature Gran % (Auto) 2.200 H, Neut % (Auto) 70.3 H, Lymph % (Auto) 19.2, [place] % (Auto) 6.7, Eos % (Auto) 1.2, Baso % (Auto) 0.4, Absolute Neuts (auto) 7.8 H, Absolute Lymphs (auto) 2.14, Nucleated RBC % 0 02/12/21 07:00: Sodium 136, Potassium 4.7, Chloride 102, Carbon Dioxide 29.0, Anion Gap 5, BUN 22 H, Creatinine 0.77, Estim Creat Clear Calc 142.61, Est GFR (MDRD) Af Amer 147, Est GFR (MDRD) Non-Af 122, BUN/Creatinine Ratio 28.6 H, Glucose 88, Calcium 8.8 Rhythm Strip Rhythm Strip: Sinus Tach Rate: 119 Ectopy: None Physical Exam Const alert, oriented x3 and no apparent distress General Appearance: cooperative Exam Limitations: no limitations HEENT normocephalic, head/scalp atraumatic and moist oral mucous membranes Head and Scalp: normocephalic Eyes PERRL, EOMs intact bilaterally and conjunctivae normal Neck no lymphadenopathy, supple and no JVD Resp normal respiratory effort, no retractions and no use of accessory muscles Resp Narrative: diminished breath sounds bibasally, no wheezes or crackles. On 7L of oxygen by nasal canula Auscultation: diminished lung sounds; Negative for crackles, rales, rhonchi or wheezes Cardio regular rate, regular rhythm, S1 normal heart sound, S2 normal heart sound and no murmurs GI normal to inspection, nondistended, normoactive bowel sounds, soft to palpation, non-tender and non-distended; Negative for hepatosplenomegaly Extremity normal to inspection, full ROM and no clubbing, cyanosis or edema Skin no rashes or lesions noted Neuro oriented x3, CN's II-XII intact bilaterally, moves all extremities, no focal motor deficits and no sensory deficits noted Sensorium / Orientation: awake and alert Psych affect normal Appearance: appropriate Assessment & Plan Assessment/Plan (1) Respiratory failure with hypoxia: QUALIFIERS: Chronicity: acute Qualified Code(s): J96.01 - Acute respiratory failure with hypoxia (2) Pneumonia due to COVID-19 virus: (3) Severe malnutrition: PLAN: #Acute hypoxic respiratory failure due to COVID 19 pneumonia * on 7L of oxygen today. * on decadron and baricitinib * CTA was negative for PE * titrate oxygen to maintain sats >90%. Breathing treatment with bronchodilators * #DVT prophylaxis: lovenox 40mg bid Charges/Coding Visit Charges Inpatient E&M: 40261 Subs Hosp L2
--- NOTE | 2021-02-12 13:53 | PN.CC_ITS ---
Assessment & Plan Assessment/Plan (1) Respiratory failure with hypoxia: QUALIFIERS: Chronicity: acute Qualified Code(s): J96.01 - Acute respiratory failure with hypoxia (2) Pneumonia due to COVID-19 virus: (3) Obesity (BMI 30-39.9): PLAN: RECOMMENDATIONS: 1. Continue Decadron and baricitinib. 2. Wean supplemental oxygen to maintain saturations at or above 90%. 3. Continue Lovenox as ordered. 4. Encourage incentive spirometer use and mobilize patient as tolerated. 5. Diuretics, as needed, to maintain euvolemic state. 6. Given improving oxygenation status, will sign off. Please call with any additional questions. IMPRESSIONS: 1. Acute hypoxic respiratory failure secondary to ARDS secondary to COVID-19 The patient initially presented to the hospital with a protracted COVID-19 course. He was therefore not deemed to be a candidate for remdesivir. He is on appropriate medical therapy with baricitinib and Decadron. Oxygenation status is improving. Continue to wean as tolerated for saturations greater than 90%. Continue prophylactic Lovenox as ordered. Encourage incentive spirometer use and mobilize patient as tolerated. 2. Obesity/delayed presentation/nonvaccinated status Complicates care, management, recovery and prognosis. Continue supportive measures as noted above. This note was generated with [employer] dictation software. It may contain incorrect words, spelling, and punctuation that were not noted in checking the note before signing. Subjective Subjective The patient was seen and examined at the bedside this morning. Events from the last 24 hours have been reviewed. The patient is currently afebrile, h emodynamically stable and maintaining appropriate oxygen saturations on 7 L/min via nasal cannula. The patient remains on Decadron, Lovenox and baricitinib. Renal function is stable. Objective Data Objective Data The patient's most recent lab work, culture data and imaging studies have all been personally reviewed. Coronavirus PCR was positive on January 31. Vital Signs: Vital Signs Temp Pulse Resp BP Pulse Ox 97.4 F L 90 16 126/74 H 95 02/12/21 13:42 02/12/21 13:42 02/12/21 13:42 02/12/21 13:42 02/12/21 13:42 Oxygen Flow Rate (L/min) 7 Oxygen Delivery Method High Flow Weight: 122.9 kg Body Mass Index (BMI) 43.6 Intake & Output: Intake and Output for Last 24 Hours 02/10/21 02/11/21 02/12/21 23:59 23:59 23:59 Intake Total 1959 1200 / 1200 600 / 600 Balance 1959 1200 / 1200 600 / 600 Medical Nutrition Assessment Dietitian: Malnutrition Criteria Met Start: 02/07/21 12:41 Freq: Status: Active Protocol: Document 02/08/21 10:14 LOUIE (Rec: 02/08/21 10:14 LOUIE [id number]) Nutrition Malnutrition Evidence of Malnutrition Exists Yes Malnutrition (severe): Acute Illness/Injury Evidenced By Suboptimal Energy Intake ( Severe),Weight Loss (Severe) Clinical Problem Acute Disease or Injury Related Malnutrition Etiology severe, acute malnutrition r/t inadequate energy intake d/t COVID-19 illness Signs/Symptoms as evidenced by unintentional wt loss of 5.2% x 2 weeks; 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 Lab / Micro Data Attestation: I reviewed the patient's lab results. Result Diagrams: 02/12/21 07:00 02/12/21 07:00 Labs: Laboratory Results - last 24 hr 02/12/21 07:00: WBC 11.2 H, RBC 4.89, Hgb 14.1, Hct 43.4, MCV 88.8, MCH 28.8, MCHC 32.5, RDW Std Deviation 42.6, RDW Coeff of Kylie 13.2, Plt Count 409, MPV 9.2, Immature Gran % (Auto) 2.200 H, Neut % (Auto) 70.3 H, Lymph % (Auto) 19.2, [place] % (Auto) 6.7, Eos % (Auto) 1.2, Baso % (Auto) 0.4, Absolute Neuts (auto) 7.8 H, Absolute Lymphs (auto) 2.14, Nucleated RBC % 0 02/12/21 07:00: Sodium 136, Potassium 4.7, Chloride 102, Carbon Dioxide 29.0, Anion Gap 5, BUN 22 H, Creatinine 0.77, Estim Creat Clear Calc 142.61, Est GFR (MDRD) Af Amer 147, Est GFR (MDRD) Non-Af 122, BUN/Creatinine Ratio 28.6 H, Glucose 88, Calcium 8.8 Rhythm Strip Rhythm Strip: Sinus Tach Rate: 119 Ectopy: None Physical Exam Const alert, oriented x3 and no apparent distress General Appearance: cooperative Nutritional Appearance: obese HEENT normocephalic and head/scalp atraumatic Eyes PERRL and EOMs intact bilaterally Neck supple General: trachea midline Chest inspection of chest normal Resp Auscultation: diminished lung sounds Cardio regular rate and regular rhythm GI normal to inspection, nondistended, normoactive bowel sounds Extremity no clubbing, cyanosis or edema Skin no rashes or lesions noted Neuro CN's II-XII intact bilaterally, moves all extremities and no focal motor deficits Psych cooperative and affect normal Charges/Coding Visit Charges Inpatient E&M: 62065 Subs Hosp L2
--- NOTE | 2021-02-12 14:45 | CASEMGMT ---
Call from pt's inquiring about cost for home oxygen as pt will not have insurance coverage starting 02/16/21. updated on cost thru [employer] per her request, voices understanding. states pt will be going on own insurance but it will not begin until 05/2021, which they were not aware of until pt had already been taken off 's insurance. This RN CM left message for PFS to see what options are if pt is still here by 02/16/21, awaiting call back. SStaten ETHEL CM
[2021-02-13] VITALS (11 sets, daily range): BP systolic 99–135; BP diastolic 54–82; PULSE 58–105; RESP 16–18; TEMP 36.2–36.6; O2SAT 84–97
[2021-02-13 06:34] LABS: Absolute Lymphocyte Count 1.96 X10^3/uL (0.83-4.51); Absolute Neutrophil Count 7.4 X10^3/uL (2.0-7.7); Basophil# 0.02 X10^3/uL; Basophil% 0.2 % (0-1); Eosinophil# 0.06 X10^3/uL; Eosinophils% 0.6 % (0-5); Hematocrit 41.9 % (40-54); Hemoglobin 13.8 g/dL (13.0-16.5); Lymphocyte # 1.96 X10^3/ul (0.83-4.51); Lymphocyte % 18.3 % (19-41); Mean Corp Hgb Conc 32.9 g/dL (32-36); Mean Corpuscular Hgb 29.1 pg (27.0-32.0); Mean Corpuscular Volume 88.2 fL (80-94); Mean Platelet Vol. 9.2 fl (6.2-12.0); Monocyte# 1.04 X10^3/uL; Monocyte% 9.7 % (0-10); NRBC Flagged by Analyzer 0 % (0-5); Neutrophil # 7.42 X10^3/uL (2.7-7.7); Neutrophil % 69.3 % (47-70); Platelet Count 419 K/mm3 (150-450); RBC Distribution Width CV 13.2 % (11.6-14.6); RBC Distribution Width SD 42.3 fl (35.1-43.9); Red Blood Count 4.75 M/mm3 (4.6-6.2); White Blood Count 10.7 K/mm3 (4.4-11.0)
[2021-02-13 06:55] LABS: Anion Gap 7 (5-15); BUN 22 mg/dL (7-18); Calcium,Total 8.6 mg/dL (8.5-10.1); Chloride 103 mmol/L (98-107); Creatinine, Serum 0.84 mg/dL (0.70-1.30); EST Glomerular Filtration Rate 109 mL/min (>60); Est Glom Filt Rate - Afr Amer 132 mL/min (>60); Estimated Creatinine Clearance 130.73 ml/min; Glucose 88 mg/dL (74-106); Potassium 4.4 mmol/L (3.5-5.1); Sodium Level 136 mmol/L (136-145)
[2021-02-13] MEDS: Enoxaparin 40 MG/0.4 ML Syringe SC ×2 (08:55→20:09)
[2021-02-13] MEDS: dexAMETHasone 10 MG/ML Vial 6 MG IV (08:55)
--- NOTE | 2021-02-13 10:49 | PCM.PN.HOSP ---
Subjective Subjective Patient seen and examined. He has no other complaints. Review of systems is otherwise negative. Objective Data Objective Data Vital Signs: Vital Signs Temp Pulse Resp BP Pulse Ox 97.9 F 74 18 99/54 L 84 02/13/21 08:49 02/13/21 08:49 02/13/21 08:49 02/13/21 08:49 02/13/21 09:58 Oxygen Flow Rate (L/min) [ 7 AMBULATING with Oxygen #3] Oxygen Flow Rate (L/min) [ 6 AMBULATING with Oxygen #2] Oxygen Flow Rate (L/min) [ 4 AMBULATING with Oxygen #1] Oxygen Flow Rate (L/min) 5 Oxygen Delivery Method High Flow Weight: 272 lb 7.861 oz Body Mass Index (BMI) 43.6 Intake & Output: Intake and Output for Last 24 Hours 02/11/21 02/12/21 02/13/21 23:59 23:59 23:59 Intake Total 1200 / 1200 1120 / 1120 Balance 1200 / 1200 1120 / 1120 Medical Nutrition Assessment Dietitian: Malnutrition Criteria Met Start: 02/07/21 12:41 Freq: Status: Active Protocol: Document 02/08/21 10:14 LOUIE (Rec: 02/08/21 10:14 [facility] [id number]) Nutrition Malnutrition Evidence of Malnutrition Exists Yes Malnutrition (severe): Acute Illness/Injury Evidenced By Suboptimal Energy Intake ( Severe),Weight Loss (Severe) Clinical Problem Acute Disease or Injury Related Malnutrition Etiology severe, acute malnutrition r/t inadequate energy intake d/t COVID-19 illness Signs/Symptoms as evidenced by unintentional wt loss of 5.2% x 2 weeks; 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 Lab / Micro Data Result Diagrams: 02/13/21 06:10 02/13/21 06:10 Labs: Laboratory Results - last 24 hr 02/13/21 06:10: WBC 10.7, RBC 4.75, Hgb 13.8, Hct 41.9, MCV 88.2, MCH 29.1, MCHC 32.9, RDW Std Deviation 42.3, RDW Coeff of Kylie 13.2, Plt Count 419, MPV 9.2, Immature Gran % (Auto) 1.900 H, Neut % (Auto) 69.3, Lymph % (Auto) 18.3 L, [place] % (Auto) 9.7, Eos % (Auto) 0.6, Baso % (Auto) 0.2, Absolute Neuts (auto) 7.4, Absolute Lymphs (auto) 1.96, Nucleated RBC % 0 02/13/21 06:10: Sodium 136, Potassium 4.4, Chloride 103, Carbon Dioxide 26.0, Anion Gap 7, BUN 22 H, Creatinine 0.84, Estim Creat Clear Calc 130.73, Est GFR (MDRD) Af Amer 132, Est GFR (MDRD) Non-Af 109, BUN/Creatinine Ratio 26.0 H, Glucose 88, Calcium 8.6 Rhythm Strip Rhythm Strip: Sinus Tach Rate: 119 Ectopy: None Physical Exam Const alert, oriented x3 and no apparent distress General Appearance: cooperative Exam Limitations: no limitations HEENT normocephalic, head/scalp atraumatic and moist oral mucous membranes Head and Scalp: normocephalic Eyes PERRL, EOMs intact bilaterally and conjunctivae normal Neck no lymphadenopathy, supple and no JVD Resp Resp Narrative: diminished breath sounds bibasally, no wheezes or crackles. On 5L of oxygen by nasal canula Auscultation: diminished lung sounds; Negative for crackles, rales, rhonchi or wheezes Cardio regular rate, regular rhythm, S1 normal heart sound, S2 normal heart sound and no murmurs GI normal to inspection, nondistended, normoactive bowel sounds, soft to palpation, non-tender and non-distended; Negative for hepatosplenomegaly Extremity normal to inspection, full ROM and no clubbing, cyanosis or edema Peripheral Pulses: Yes pulses 2+ throughout Skin no rashes or lesions noted Neuro oriented x3, CN's II-XII intact bilaterally, moves all extremities, no focal motor deficits and no sensory deficits noted Sensorium / Orientation: awake and alert Psych affect normal Appearance: appropriate Assessment & Plan Assessment/Plan (1) Respiratory failure with hypoxia: QUALIFIERS: Chronicity: acute Qualified Code(s): J96.01 - Acute respiratory failure with hypoxia (2) Pneumonia due to COVID-19 virus: (3) Severe malnutrition: PLAN: #Acute hypoxic respiratory failure due to COVID 19 pneumonia down to 5L of oxygen today. on decadron and baricitinib CTA was negative for PE titrate oxygen to maintain sats >90%. Breathing treatment with bronchodilators walking pulse ox today showed he required 7L of oxygen. #DVT prophylaxis: lovenox 40mg bid Disposition: plan is for discharge home once his oxygen requirement improves. Charges/Coding Visit Charges Inpatient E&M: 36731 Subs Hosp L2
[2021-02-14] VITALS (7 sets, daily range): BP systolic 106–137; BP diastolic 60–65; PULSE 55–88; RESP 12–18; TEMP 36.4–36.7; O2SAT 84–97
[2021-02-14] MEDS: 0.9% Saline Lock 10 ML Syringe IV (08:45)
[2021-02-14] MEDS: Enoxaparin 40 MG/0.4 ML Syringe SC (08:45)
[2021-02-14] MEDS: dexAMETHasone 10 MG/ML Vial 6 MG IV (08:45)
--- NOTE | 2021-02-14 11:21 | CASEMGMT ---
Per Mable DAVENPORT, patient qualifies for 4L O2 with exertion. [place] [facility] [facility] [place]. Oseas DAVENPORT CM
--- NOTE | 2021-02-14 11:43 | CASEMGMT ---
Addendum entered by Tisha Mendoza 02/14/21 14:11: [facility] now has e-tank available for pt and script faxed to [employer] [facility]. E-tank delivered. Pt updated on all, voices understanding. Pt voices no further questions/concerns/needs. Faizan DAVENPORT CM Addendum entered by Aleta Pendleton 02/14/21 12:24: Per Tammy, unable to take self pay patient. Call out to [facility], awaiting call back at this time. Addendum entered by Aleta Pendleotn 02/14/21 12:22: Call back from [facility], unable to supply oxygen for this patient due to distance/location. Will attempt to obtain from different company. Original Note: Per Mable DAVENPORT, patient qualifies for 4L O2 with exertion. Script faxed to [facility]. Call to [facility] to confirm fax received. Oseas DAVENPORT CM
--- NOTE | 2021-02-14 11:46 | PCM.DC.SUM ---
Providers Date of Admission: 02/06/21 Primary Care Physician: Dr. 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 / Pulmonary Medicine Routine Consulting Provider: Tenzin Dickinson Reason for Consult: Covid-19 EMERGENT Consult: No Notified: Yes Date Notified: 02/06/21 Time Notified: 21:56 Method of Notification: Text Reason For Visit: ACUTE HYPOXEMIC RESPIRATORY FAILURE SECONDARY Diagnosis Discharge Diagnosis (1) Respiratory failure with hypoxia: Status: Acute Code(s): J96.91 - Respiratory failure, unspecified with hypoxia Qualifiers: Chronicity: acute Qualified Code(s): J96.01 - Acute respiratory failure with hypoxia (2) Pneumonia due to COVID-19 virus: Status: Acute Code(s): U07.1 - COVID-19; J12.82 - Pneumonia due to coronavirus disease 2019 (3) Severe malnutrition: Status: Acute Code(s): E43 - Unspecified severe protein-calorie malnutrition Medications at Discharge Home Medications dexamethasone 6 mg PO DAILY #1 tab 02/14/21 Hospital Course Operations None Procedures None Summary of Care Provided Minutes Spent on Discharge: 45 Hospital Course: Patient is a 35 y/o male with a PMh of morbid obesity who presents to the ED with a complaint of shortness of breath, cough, fever and myalgia, with associated anosmia and poor appetite, with dysgeusia. His symptoms had been going on for 13 to 14 days. He had tested positive for covid on 01/31/2021. He was admitted and managed for acute hypoxic respiratory failure due to covid [address] pneumonia[address] CXR and Chest CT showed multifocal infiltrates with no evidence of PE or aortic dissection. He was started on decadron. ID and pulmonology were consulted. He also received baricitinib. He completed a course of decadron and baricitinib. He was gradually weaned off Airvo onto oxygen by nasal canula. He remained stable and was weaned off oxygen completely. He had walking pulse ox which showed he needed up to 4L of oxygen with ambulation. He remained stable and was discharged home on 02/14/2021. 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 Patient seen and examined prior to discharge. He had no complaints and felt well. Review of systems otherwise negative. Labs and vitals reviewed. Home meds reviewed and reconciled. Physical Exam Const alert, oriented x3 and no apparent distress General Appearance: cooperative and comfortable Exam Limitations: no limitations HEENT normocephalic, head/scalp atraumatic and moist oral mucous membranes Eyes PERRL, EOMs intact bilaterally and conjunctivae normal Neck no lymphadenopathy, supple and no JVD Resp normal respiratory effort, no retractions and no use of accessory muscles Resp Narrative: diminished breath sounds bibasally, no wheezes or crackles. On room air. Auscultation: diminished lung sounds; Negative for crackles, rales, rhonchi or wheezes Cardio regular rate, regular rhythm, S1 normal heart sound, S2 normal heart sound and no murmurs GI normal to inspection, nondistended, normoactive bowel sounds, soft to palpation, non-tender and non-distended; Negative for hepatosplenomegaly Extremity normal to inspection, full ROM and no clubbing, cyanosis or edema Skin no rashes or lesions noted Neuro oriented x3, CN's II-XII intact bilaterally, moves all extremities, no focal motor deficits and no sensory deficits noted Sensorium / Orientation: awake and alert Psych affect normal Appearance: appropriate Medical Records Data Medical Nutrition Assessment Dietitian: Malnutrition Criteria Met Start: 02/07/21 12:41 Freq: Status: Active Protocol: Document 02/08/21 10:14 LOUIE (Rec: 02/08/21 10:14 LOUIE [id number]) Nutrition Malnutrition Evidence of Malnutrition Exists Yes Malnutrition (severe): Acute Illness/Injury Evidenced By Suboptimal Energy Intake ( Severe),Weight Loss (Severe) Clinical Problem Acute Disease or Injury Related Malnutrition Etiology severe, acute malnutrition r/t inadequate energy intake d/t COVID-19 illness Signs/Symptoms as evidenced by unintentional wt loss of 5.2% x 2 weeks; estimated PO intake meeting < 75% of 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 Weight / BMI Weight Weight: 271 lb 2.697 oz Body Mass Index (BMI) 43.6 ABG / Lab / Microbiology Data Result Diagrams: 02/13/21 06:10 02/13/21 06:10 D/C Instructions Discharge Diet: Low fat / Low cholesterol Discharge Activity: Return to Normal Activity Call your doctor if you observe: Fever of 101 or Higher, Shortness of breath, Swelling in the ankles and Chest pain Meaningful Use Info Meaningful Use Diagnoses (Choose all that apply): None applicable Discharge Plan Admission Admit Date/Time: 02/06/21 21:51 Primary Reason for Your Visit: acute hypoxic respiratory failure due to covid 19 pneumonia Attending Provider: Kathleen Evans Primary Care Provider: Tessy Kenyon Consulting Providers: Nito Kramer ; Tenzin Dickinson Instructions Patient Instructions: Coronavirus Disease 2019 (COVID-19): Overview Additional Instructions / Restrictions: use oxygen for shortness of breath as needed Discharge Orders/Prescriptions Prescriptions: New dexamethasone 6 mg tablet 6 mg PO DAILY Qty: 1 RF: 0 Referrals / Follow Up: Bj Pleitez DO [STAFF PHYSICIAN] - Within 2 Weeks Tessy Kenyon MD [Primary Care Provider] - Within 2 Weeks Disposition Disposition (needs filled in before D/C Order can be placed): Home, Self Care Charges/Coding Visit Charges Inpatient E&M: 04559 Disch Hosp
== END 2021-02-14 17:20 | disposition home or self-care (01) | DRG 177 ==
LOC: ED 21:57 → ICU 22:19 → PCU 02-08 16:40
PROVIDERS: Internal Medicine Critical Care Medicine; Admitting Provider Hospitalist; Emergency Provider Emergency Medicine; PCP Internal Medicine; Visit Provider Student in an Organized Health Care Education/Training Program
DX: U07.1 COVID-19 (principal); E43 Unspecified severe protein-calorie malnutrition; J12.82 Pneumonia due to coronavirus disease 2019; J96.01 Acute respiratory failure with hypoxia; Z68.41 Body mass index [BMI] 40.0-44.9, adult; E66.01 Morbid (severe) obesity due to excess calories
CPT/HCPCS: 36415; 71045; 71275; 80048; 80053; 80076; 84145; 85025; 85379; 86140; 93005; 94002; 94003; 94660; 94668; 97802; 99251; 99285; Q9967; A4216; G0463; J1940

== ENCOUNTER 2021-03-29 10:43 | Outpatient (CLI) | payer OTHER, SELFPAY ==
[2021-03-29 11:07] VITALS: PULSE 103; PULSE 106; PULSE 110; PULSE 111; PULSE 85; PULSE 87; O2SAT 92; O2SAT 93; O2SAT 94; O2SAT 96; O2SAT 97
--- NOTE | 2021-03-29 11:14 | CPS ---
HAS NOT WORN HIS O2 FOR APRROXIMATELY 3 WEEKS.
--- NOTE | 2021-03-30 08:08 | PCM.PSN.6M ---
PSN 6 Minute Walk Test 6 Minute Walk Test 6 Minute Walk Test: 6 Minute Walk Test PSN:6-Minute Walk Test Start: 03/29/21 11:06 Freq: Status: Active Protocol: RESP.6MINW Document 03/29/21 11:07 FR (Rec: 03/29/21 11:14 FR [id number]) 6 Minute Walk Test Date Performed 03/29/21 Time Performed 11:00 Height 5 ft 11 in Weight: 127.006 kg Weight in Pounds 280.[address]: CHRISTOPH/ZITA Assistive device used: None Pre-test Oxygen Delivery Method Room Air Pulse Ox (%) 97 Pulse Rate (60-100 beats/min) 87 Dyspnea Chiki Scale (0-10) 0 Exertion Chiki Scale (6-20) 9 1st minute Oxygen Delivery Method Room Air Pulse Ox (%) 93 Pulse Rate (60-100 beats/min) 103 H 2nd minute Oxygen Delivery Method Room Air Pulse Ox (%) 92 Pulse Rate (60-100 beats/min) 106 H 3rd minute Oxygen Delivery Method Room Air Pulse Ox (%) 93 Pulse Rate (60-100 beats/min) 106 H 4th minute Oxygen Delivery Method Room Air Pulse Ox (%) 92 Pulse Rate (60-100 beats/min) 111 H 5th minute Oxygen Delivery Method Room Air Pulse Ox (%) 94 Pulse Rate (60-100 beats/min) 106 H 6th minute Oxygen Delivery Method Room Air Pulse Ox (%) 93 Pulse Rate (60-100 beats/min) 110 H Dyspnea Chiki Scale (0-10) 5 Exertion Chiki Scale (6-20) 11 Post-test Oxygen Delivery Method Room Air Pulse Ox (%) 96 Pulse Rate (60-100 beats/min) 85 Full Laps Walked 17 Partial Lap, Number of Tiles Walked 19 Total Distance Walked (ft) 1022 03/29/21 11:14 Cardiopulmonary Services by Felicia Anguiano HAS NOT WORN HIS O2 FOR APRROXIMATELY 3 WEEKS. Initialized on 03/29/21 11:14 - END OF NOTE Interpretation Interpretation: The patient ambulated 1022 feet over the course of 6 minutes beginning on room air without assistive devices. Pretesting oxygen saturation was noted to be 97% on room air. With ambulation, the melody oxygen saturation was 92%. This represents a significant exertional oxygen desaturation. Recommendations Recommendations: There is no indication for the use of supplemental oxygen at this time. However, close interval follow-up is recommended, given the degree of oxygen desaturation noted during this study.
== END 2021-03-29 23:59 | disposition home or self-care (01) ==
LOC: PSN 10:44
PROVIDERS: PCP Internal Medicine; Referring Provider Nurse Practitioner Acute Care; Visit Provider Nurse Practitioner Acute Care
DX: J96.01 Acute respiratory failure with hypoxia (principal)
CPT/HCPCS: 94618

== ENCOUNTER → 2021-10-15 | Outpatient (CLI) | payer BC, SELFPAY ==
[2021-10-15 16:42] LABS: Absolute Lymphocyte Count 1.85 X10^3/uL (0.83-4.51); Absolute Neutrophil Count 4.5 X10^3/uL (2.0-7.7); Basophil# 0.05 X10^3/uL; Basophil% 0.7 % (0-1); Eosinophil# 0.11 X10^3/uL; Eosinophils% 1.5 % (0-5); Hematocrit 43.6 % (40-54); Hemoglobin 14.5 g/dL (13.0-16.5); Lymphocyte # 1.85 X10^3/ul (0.83-4.51); Lymphocyte % 25.4 % (19-41); Mean Corp Hgb Conc 33.3 g/dL (32-36); Mean Corpuscular Hgb 29.8 pg (27.0-32.0); Mean Corpuscular Volume 89.5 fL (80-94); Monocyte# 0.77 X10^3/uL; Monocyte% 10.6 % (0-10); NRBC Flagged by Analyzer 0 % (0-5); Neutrophil # 4.48 X10^3/uL (2.7-7.7); Neutrophil % 61.5 % (47-70); Platelet Count 242 K/mm3 (150-450); RBC Distribution Width CV 13.7 % (11.6-14.6); RBC Distribution Width SD 45.1 fl (35.1-43.9); Red Blood Count 4.87 M/mm3 (4.6-6.2); White Blood Count 7.3 K/mm3 (4.4-11.0)
[2021-10-15 16:54] LABS: AST(SGOT) 19 U/L (15-37); Alanine Aminotransfer ALT/SGPT 43 U/L (16-61); Albumin, Serum 3.9 g/dL (3.2-5.0); Alkaline Phosphatase 38 U/L (45-117); Anion Gap 8 (5-15); BUN 13 mg/dL (7-18); BUN/Creat Ratio 11.2 RATIO (10-20); Calcium,Total 8.6 mg/dL (8.5-10.1); Chloride 105 mmol/L (98-107); Cholesterol 276 mg/dL (200); Creatinine, Serum 1.16 mg/dL (0.70-1.30); EST Glomerular Filtration Rate 76 mL/min (>60); Est Glom Filt Rate - Afr Amer 91 mL/min (>60); Glucose 81 mg/dL (74-106); High Density Lipoprotein 38 mg/dL; Potassium 3.9 mmol/L (3.5-5.1); Protein, Total 7.9 g/dL (6.4-8.2); Sodium Level 139 mmol/L (136-145); Triglycerides 302 mg/dL; Very Low Density Lipoprotein 60 mg/dL (5-40)
== END | disposition home or self-care (01) ==
LOC: BIMLAB 15:13
PROVIDERS: PCP Internal Medicine; Visit Provider Internal Medicine
DX: I10 Essential (primary) hypertension (principal)
CPT/HCPCS: 36415; 80053; 80061; 85025

== ENCOUNTER → 2021-12-23 | Outpatient (CLI) | payer BC, SELFPAY ==
[2021-12-23 15:54] LABS: ALB/GLOB Ratio 1.1 RATIO (0.9-2.4); AST(SGOT) 24 U/L (15-37); Alanine Aminotransfer ALT/SGPT 67 U/L (16-61); Alkaline Phosphatase 41 U/L (45-117); Anion Gap 5 (5-15); BUN 13 mg/dL (7-18); BUN/Creat Ratio 11.5 RATIO (10-20); Calcium,Total 9.1 mg/dL (8.5-10.1); Chloride 106 mmol/L (98-107); Creatinine, Serum 1.13 mg/dL (0.70-1.30); EST Glomerular Filtration Rate 78 mL/min (>60); Est Glom Filt Rate - Afr Amer 94 mL/min (>60); Globulin 3.8 g/dL (2.2-4.2); Glucose 121 mg/dL (74-106); Potassium 3.5 mmol/L (3.5-5.1); Protein, Total 7.8 g/dL (6.4-8.2); Sodium Level 140 mmol/L (136-145)
== END | disposition home or self-care (01) ==
PROVIDERS: PCP Internal Medicine; Referring Provider Internal Medicine; Visit Provider Internal Medicine
DX: E78.5 Hyperlipidemia, unspecified (principal)
CPT/HCPCS: 36415; 80053

== ENCOUNTER → 2022-03-04 | Outpatient (CLI) | payer BC, SELFPAY ==
[2022-03-04 16:56] LABS: BUN 19 mg/dL (7-18); Creatinine, Serum 1.11 mg/dL (0.70-1.30); Glucose 87 mg/dL (74-106)
[2022-03-04 16:57] LABS: ALB/GLOB Ratio 1.1 RATIO (0.9-2.4); AST(SGOT) 18 U/L (15-37); Alanine Aminotransfer ALT/SGPT 46 U/L (16-61); Albumin, Serum 4.1 g/dL (3.2-5.0); Alkaline Phosphatase 44 U/L (45-117); Anion Gap 8 (5-15); BUN/Creat Ratio 17.1 RATIO (10-20); Calcium,Total 8.8 mg/dL (8.5-10.1); Chloride 105 mmol/L (98-107); Cholesterol 137 mg/dL (200); EST Glomerular Filtration Rate 79 mL/min (>60); Est Glom Filt Rate - Afr Amer 96 mL/min (>60); Globulin 3.8 g/dL (2.2-4.2); High Density Lipoprotein 42 mg/dL; Potassium 3.9 mmol/L (3.5-5.1); Protein, Total 7.9 g/dL (6.4-8.2); Sodium Level 141 mmol/L (136-145); Triglycerides 219 mg/dL; Very Low Density Lipoprotein 44 mg/dL (5-40)
== END | disposition home or self-care (01) ==
LOC: BIMLAB 15:28
PROVIDERS: PCP Internal Medicine; Referring Provider Internal Medicine; Visit Provider Internal Medicine
DX: E78.5 Hyperlipidemia, unspecified (principal); I10 Essential (primary) hypertension
CPT/HCPCS: 36415; 80053; 80061

== ENCOUNTER → 2022-06-24 | Outpatient (CLI) | payer BC, SELFPAY ==
[2022-06-24 17:37] LABS: Anion Gap 3 (5-15); BUN 14 mg/dL (7-18); BUN/Creat Ratio 11.5 RATIO (10-20); Calcium,Total 9.3 mg/dL (8.5-10.1); Chloride 101 mmol/L (98-107); Creatinine, Serum 1.22 mg/dL (0.70-1.30); EST Glomerular Filtration Rate 71 mL/min (>60); Est Glom Filt Rate - Afr Amer 86 mL/min (>60); Glucose 90 mg/dL (74-106); Potassium 3.5 mmol/L (3.5-5.1); Sodium Level 135 mmol/L (136-145)
== END | disposition home or self-care (01) ==
LOC: BIMLAB 16:06
PROVIDERS: PCP Internal Medicine; Visit Provider Internal Medicine
DX: I10 Essential (primary) hypertension (principal)
CPT/HCPCS: 36415; 80048

== ENCOUNTER → 2022-07-25 | Outpatient (CLI) | payer BC, SELFPAY | END | disposition home or self-care (01) | LOC: SL 20:06 | PROVIDERS: PCP Internal Medicine; Visit Provider Internal Medicine | DX: G47.10 Hypersomnia, unspecified (principal) | CPT/HCPCS: 95811 ==

== ENCOUNTER → 2022-08-11 | Outpatient (CLI) | payer BC, SELFPAY | END | disposition home or self-care (01) | LOC: SL 13:40 | PROVIDERS: PCP Internal Medicine; Visit Provider Internal Medicine | DX: G47.33 Obstructive sleep apnea (adult) (pediatric) (principal) ==

== ENCOUNTER → 2022-10-16 | Outpatient (CLI) | payer BC, SELFPAY ==
[2022-10-16 17:21] LABS: ALB/GLOB Ratio 1.2 RATIO (0.9-2.4); AST(SGOT) 23 U/L (15-37); Alanine Aminotransfer ALT/SGPT 49 U/L (16-61); Albumin, Serum 4.3 g/dL (3.2-5.0); Alkaline Phosphatase 46 U/L (45-117); Anion Gap 6 (5-15); BUN 16 mg/dL (7-18); BUN/Creat Ratio 13.4 RATIO (10-20); Calcium,Total 9.3 mg/dL (8.5-10.1); Chloride 101 mmol/L (98-107); Creatinine, Serum 1.19 mg/dL (0.70-1.30); EST Glomerular Filtration Rate 73 mL/min (>60); Est Glom Filt Rate - Afr Amer 88 mL/min (>60); Globulin 3.7 g/dL (2.2-4.2); Glucose 85 mg/dL (74-106); Potassium 3.8 mmol/L (3.5-5.1); Sodium Level 136 mmol/L (136-145)
== END | disposition home or self-care (01) ==
LOC: BIMLAB 15:39
PROVIDERS: PCP Internal Medicine; Referring Provider Internal Medicine; Visit Provider Internal Medicine
DX: I10 Essential (primary) hypertension (principal)
CPT/HCPCS: 36415; 80053

== ENCOUNTER → 2023-03-02 | Outpatient (CLI) | payer BC, SELFPAY ==
[2023-03-02 15:23] LABS: Anion Gap 8 (5-15); BUN 15 mg/dL (7-18); BUN/Creat Ratio 12.5 RATIO (10-20); Calcium,Total 9.2 mg/dL (8.5-10.1); Chloride 102 mmol/L (98-107); EST Glomerular Filtration Rate 72 mL/min (>60); Est Glom Filt Rate - Afr Amer 87 mL/min (>60); Glucose 99 mg/dL (74-106); Potassium 3.8 mmol/L (3.5-5.1); Sodium Level 138 mmol/L (136-145)
== END | disposition home or self-care (01) ==
LOC: BIMLAB 13:18
PROVIDERS: PCP Internal Medicine; Referring Provider Internal Medicine; Visit Provider Internal Medicine
DX: I10 Essential (primary) hypertension (principal)
CPT/HCPCS: 36415; 80048

== ENCOUNTER → 2023-06-08 | Outpatient (CLI) | payer BC, SELFPAY ==
[2023-06-08 16:52] LABS: Absolute Lymphocyte Count 2.56 X10^3/uL (0.83-4.51); Basophil# 0.06 X10^3/uL; Basophil% 0.8 % (0-1); Eosinophil# 0.07 X10^3/uL; Eosinophils% 0.9 % (0-5); Hematocrit 41.5 % (40-54); Hemoglobin 13.7 g/dL (13.0-16.5); Lymphocyte # 2.56 X10^3/ul (0.83-4.51); Lymphocyte % 34.7 % (19-41); Mean Corpuscular Hgb 29.6 pg (27.0-32.0); Mean Corpuscular Volume 89.6 fL (80-94); Mean Platelet Vol. 10.1 fl (6.2-12.0); Monocyte# 0.63 X10^3/uL; Monocyte% 8.5 % (0-10); NRBC Flagged by Analyzer 0 % (0-5); Neutrophil # 4.04 X10^3/uL (2.7-7.7); Platelet Count 257 K/mm3 (150-450); RBC Distribution Width CV 13.6 % (11.6-14.6); RBC Distribution Width SD 44.6 fl (35.1-43.9); Red Blood Count 4.63 M/mm3 (4.6-6.2); White Blood Count 7.4 K/mm3 (4.4-11.0)
[2023-06-08 16:58] LABS: ALB/GLOB Ratio 1.1 RATIO (0.9-2.4); AST(SGOT) 20 U/L (15-37); Alanine Aminotransfer ALT/SGPT 38 U/L (16-61); Alkaline Phosphatase 40 U/L (45-117); Anion Gap 7 (5-15); BUN 14 mg/dL (7-18); BUN/Creat Ratio 11.6 RATIO (10-20); Calcium,Total 8.6 mg/dL (8.5-10.1); Chloride 102 mmol/L (98-107); Cholesterol 155 mg/dL (200); Creatinine, Serum 1.21 mg/dL (0.70-1.30); EST Glomerular Filtration Rate 71 mL/min (>60); Est Glom Filt Rate - Afr Amer 86 mL/min (>60); Globulin 3.8 g/dL (2.2-4.2); Glucose 103 mg/dL (74-106); High Density Lipoprotein 49 mg/dL; Potassium 3.6 mmol/L (3.5-5.1); Protein, Total 7.8 g/dL (6.4-8.2); Sodium Level 135 mmol/L (136-145); Triglycerides 150 mg/dL; Very Low Density Lipoprotein 30 mg/dL (5-40)
[2023-06-08 17:54] LABS: Hemoglobin A1c 5.2 % (3.8-5.6)
== END | disposition home or self-care (01) ==
LOC: BIMLAB 15:14
PROVIDERS: PCP Internal Medicine; Visit Provider Internal Medicine
DX: I10 Essential (primary) hypertension (principal); E66.01 Morbid (severe) obesity due to excess calories
CPT/HCPCS: 36415; 80053; 80061; 83036; 85025

== ENCOUNTER → 2024-02-01 | Outpatient (CLI) | payer BC, SELFPAY ==
[2024-02-01 23:51] LABS: Anion Gap 4 (5-15); BUN 20 mg/dL (7-18); BUN/Creat Ratio 19.2 RATIO (10-20); Calcium,Total 9.2 mg/dL (8.5-10.1); Chloride 107 mmol/L (98-107); Creatinine, Serum 1.04 mg/dL (0.70-1.30); EST Glomerular Filtration Rate 85 mL/min (>60); Est Glom Filt Rate - Afr Amer 102 mL/min (>60); Glucose 103 mg/dL (74-106); Sodium Level 141 mmol/L (136-145)
== END | disposition home or self-care (01) ==
LOC: BIMLAB 14:36
PROVIDERS: PCP Internal Medicine; Referring Provider Internal Medicine; Visit Provider Internal Medicine
DX: I10 Essential (primary) hypertension (principal)
CPT/HCPCS: 36415; 80048

== ENCOUNTER → 2024-03-09 | Outpatient (CLI) | payer BC, SELFPAY ==
[2024-03-09 15:05] LABS: Absolute Lymphocyte Count 2.31 X10^3/uL (0.83-4.51); Absolute Neutrophil Count 5.1 X10^3/uL (2.0-7.7); Basophil# 0.06 X10^3/uL; Basophil% 0.7 % (0-1); Eosinophils% 1.2 % (0-5); Hemoglobin 14.3 g/dL (13.0-16.5); Lymphocyte # 2.31 X10^3/ul (0.83-4.51); Lymphocyte % 27.8 % (19-41); Mean Corp Hgb Conc 32.5 g/dL (32-36); Mean Corpuscular Hgb 29.2 pg (27.0-32.0); Mean Platelet Vol. 9.9 fl (6.2-12.0); Monocyte# 0.74 X10^3/uL; Monocyte% 8.9 % (0-10); NRBC Flagged by Analyzer 0 % (0-5); Neutrophil # 5.09 X10^3/uL (2.7-7.7); Neutrophil % 61.2 % (47-70); Platelet Count 265 K/mm3 (150-450); RBC Distribution Width CV 13.7 % (11.6-14.6); RBC Distribution Width SD 45.5 fl (35.1-43.9); Red Blood Count 4.89 M/mm3 (4.6-6.2); White Blood Count 8.3 K/mm3 (4.4-11.0)
[2024-03-09 15:40] LABS: AST(SGOT) 24 U/L (15-37); Alanine Aminotransfer ALT/SGPT 48 U/L (16-61); Albumin, Serum 4.4 g/dL (3.2-5.0); Alkaline Phosphatase 41 U/L (45-117); Anion Gap 7 (5-15); BUN 18 mg/dL (7-18); BUN/Creat Ratio 14.8 RATIO (10-20); Calcium,Total 9.8 mg/dL (8.5-10.1); Chloride 100 mmol/L (98-107); Cholesterol 168 mg/dL (200); Creatinine, Serum 1.22 mg/dL (0.70-1.30); EST Glomerular Filtration Rate 70 mL/min (>60); Est Glom Filt Rate - Afr Amer 85 mL/min (>60); Globulin 4.2 g/dL (2.2-4.2); Glucose 112 mg/dL (74-106); High Density Lipoprotein 46 mg/dL; Protein, Total 8.6 g/dL (6.4-8.2); Sodium Level 133 mmol/L (136-145); Triglycerides 154 mg/dL; Very Low Density Lipoprotein 31 mg/dL (5-40)
== END | disposition home or self-care (01) ==
LOC: BIMLAB 13:45
PROVIDERS: PCP Internal Medicine; Referring Provider Internal Medicine; Visit Provider Internal Medicine
DX: I10 Essential (primary) hypertension (principal)
CPT/HCPCS: 36415; 80053; 80061; 85025

== ENCOUNTER → 2025-02-13 | Outpatient (CLI) | payer BC, SELFPAY ==
--- NOTE | 2025-02-13 14:55 | RAD_ITS ---
PROCEDURE: L/S SPINE MIN 4 VIEWS 02/13/2025 REASON FOR EXAM: CHRONIC BACK PAIN TECHNIQUE: Procedure Code: [id number] Modality: DX Procedure: L/S SPINE MIN 4 VIEWS COMPARISON: None FINDINGS: There is a mild rotatory scoliotic curvature in the spine with apex to the left in the lumbar spine between T12 and L1. No acute fracture, pars defect or spondylolisthesis. Mild disc space narrowing at L4-5 and L5-S1 with sclerotic endplate changes and small spurs. Prevertebral soft tissues are unremarkable, no demonstrated fracture in the visualized pelvis RAD/L/S Spine Min 4 Views IMPRESSION: Mild degenerative changes at L4-5 and L5-S1 Minimal levoscoliosis in the lumbar spine apex at T12-L1 Reading Location: [id number]
[2025-02-13 15:15] LABS: Hematocrit 39.7 % (40-54); Hemoglobin 13.2 g/dL (13.0-16.5); Immature Granulocytes Count 0.020 X10^3/uL (0.0-0.0); Mean Corp Hgb Conc 33.2 g/dL (32-36); Mean Corpuscular Volume 89.0 fL (80-94); Mean Platelet Vol. 9.4 fl (6.2-12.0); NRBC Flagged by Analyzer 0 % (0-5); Platelet Count 261 K/mm3 (150-450); RBC Distribution Width CV 14.0 % (11.6-14.6); RBC Distribution Width SD 45.1 fl (35.1-43.9); Red Blood Count 4.46 M/mm3 (4.6-6.2); White Blood Count 8.4 K/mm3 (4.4-11.0)
[2025-02-13 15:40] LABS: AST(SGOT) 28 U/L (<=37); Alanine Aminotransfer ALT/SGPT 38 U/L (<=46); Albumin, Serum 4.4 g/dL (3.5-5.0); Alkaline Phosphatase 41 U/L (40-129); Anion Gap 10 (7-18); BUN 19 mg/dL (4-19); BUN/Creat Ratio 21.1 RATIO (10-20); Calcium,Total 9.7 mg/dL (7.6-11.0); Carbon Dioxide 27.1 mmol/L (20.0-29.0); Chloride 102 mmol/L (96-106); Cholesterol 167 mg/dL (<=200); Globulin 3.4 g/dL (2.2-4.2); Glucose 99 mg/dL (70-99); Low Density Lipoprotein Calc. 96 mg/dL; Potassium 4.4 mmol/L (3.5-5.1); Triglycerides 173 mg/dL; Very Low Density Lipoprotein 35 mg/dL (5-40); cholesterol:hdl ratio screen 4.04
--- OUTSIDE RECORDS SUMMARY | 2025-02-13 19:56 | XMS RPT_ITS | CCD ---
Author Organization [facility] Care Team Providers Care Differential Specialist Name Role Phone Dr. Tessy Kenyon Primary Care Provider Dr. Tessy Kenyon Referring Provider [phone] Dr. Chas Kaur Attending Provider [phone] Oleghe, Efewongbe Referring Unavailable Oleghe, Efewongbe Primary Care Unavailable Oleghe, Efewongbe Attending Unavailable Juan Madsen Attending Unavailable Oleghe, Efewongbe Primary Care Unavailable Oleghe, Efewongbe Referring Unavailable Oleghe, Efewongbe Primary Care Unavailable Oleghe, Efewongbe Attending Unavailable Juan Madsen Attending Unavailable Oleghe, Efewongbe Primary Care Unavailable Juan Madsen Attending Unavailable Oleghe, Efewongbe Primary Care Unavailable Juan Madsen Attending Unavailable Oleghe, Efewongbe Primary Care Unavailable Oleghe, Efewongbe Attending Unavailable Oleghe, Efewongbe Referring Unavailable Oleghe, Efewongbe Primary Care Unavailable Juan Madsen Attending Unavailable Oleghe, Efewongbe Primary Care Unavailable Oleghe, Efewongbe Attending Unavailable Oleghe, Efewongbe Referring Unavailable Oleghe, Efewongbe Primary Care Unavailable Medications Current Medications Medication Drug Class(es) Dates Sig (Normalized) Sig (Original) [place] (Nk) (1 source) Start: 10-15-2021 [place] (Nk) A ctive October 15, 2021 12:00am Completed/Discontinued Medications Medication Drug Class(es) Dates Sig (Normalized) Sig (Original) dexamethasone 6 mg oral tablet (1 source) Corticosteroid Start: 02-14-2021 End: 03-13-2021 take 6 mg by mouth once daily Dexamethasone Discontinued 6 MG PO DAILY February 14, 2021 1:00am March 13, 2021 11:09am Problems Problem Classification Problem Date Documented Date Episodic/Chronic Attention-deficit, conduct, and disruptive behavior disorders (1 source) Attention-deficit hyperactivity disorder, predominantly inattentive type; Translations: [Attention-deficit hyperactivity disorder, predominantly inattentive type] Onset: 11-28-2024 Chronic Attention-deficit, conduct, and disruptive behavior disorders (1 source) Attention-deficit hyperactivity disorder, unspecified type; Translations: [Attention-deficit hyperactivity disorder, unspecified type] Onset: 11-28-2024 Chronic Disorders usually diagnosed in infancy, childhood, or adolescence (3 sources) Attention deficit hyperactivity disorder, predominantly inattentive type; Translations: [Other specified behavioral and emotional disorders with onset usually occurring in childhood and adolescence] Onset: 08-18-2024 Chronic Essential hypertension (3 sources) Hypertensive disorder; Translations: [Essential (primary) hypertension] Onset: 10-12-2024 Chronic Mood disorders (1 source) Mood disorders; Translations: [Depression, unspecified] Onset: 11-28-2024 Other lower respiratory disease (1 source) Hypoxia; Translations: [Hypoxemia] Episodic Other screening for suspected conditions (not mental disorders or infectious disease) (1 source) Patient encounter status; Translations: [Encounter for screening for lipoid disorders] Episodic Other upper respiratory disease (1 source) Seasonal allergy; Translations: [Other seasonal allergic rhinitis] Chronic Residual codes; unclassified (1 source) Bilateral lower limb edema; Translations: [Localized edema] Episodic Residual codes; unclassified (1 source) Localized edema; Translations: [Edema] Episodic Respiratory failure; insufficiency; arrest (adult) (1 source) Hypoxemic respiratory failure; Translations: [Respiratory failure, unspecified with hypoxia] Episodic Viral infection (1 source) COVID-19; Translations: [Pneumonia due to COVID-19 virus] Episodic Results Test Name Value Interpretation Reference Range Facil ity MR/BPon 11-28-2024 MR/BMS.BP [address], [address] [place] [id number] OFFICE VISIT Date of Service: 11/28/24 MR#: [id number] Acct: [id number] Name: CRISTI TORRE Rep #: [id number] : 1985 Provider: Dr. Juan Bradley se, DO Age/Sex: 39/M [place] [facility] Status: Signed Intake Vital Signs 10/12/24 08:19 11/28/24 15:36 Height 5 ft 11 in 5 ft 11 in Weight: 288 lb 275 lb BMI 40.1 38.3 BP 144/94 H 123/80 H Blood Pressure Location Lt brachial Lt brachial Position Sitting Sitting Respiration 16 16 Pulse 92 101 H Pulse Source Monitor Monitor Temp 97.2 F L Pulse Oximetry (%) 98 Oxygen Delivery Method room air BP Intake Visit Reasons: Follow Up Accompanied by: Self Allergies No Known Allergies Allergy (Verified 11/28/24 15:38) Medications ???Medication ???Instructions ???Recorded ???Confirmed ???Type multivitamin 1 tab PO DAILY 01/01/22 11/28/24 H istory olmesartan 20 mg tablet 20 mg PO DAILY #90 tabs 10/12/24 1 Rx rosuvastatin 20 mg tablet 20 mg PO DAILY #90 tabs 10/12/24 1 Rx triamterene 37.5 1 tab PO DAILY #90 tabs 10/12/24 1 Rx mg-hydrochlorothiazi de 25 mg tablet dextroamphetamine-am phetamine 10 10 mg PO BID 30 days #60 tabs 10/1811/28/24 Rx mg tablet dextroamphetamine-am phetamine ER 30 mg PO QAM 30 days #30 caps 10/1811/28/24 Rx 30 mg 24hr capsule,extend release dextroamphetamine-am phetamine 10 10 mg PO BID 30 days #60 tabs 11/1611/28/24 Rx mg tablet dextroamphetamine-am phetamine 10 10 mg PO BID 30 days #60 tabs 11/1611/28/24 Rx mg tablet dextroamphetamine-am phetamine ER 30 mg PO QAM 30 days #30 caps 11/1611/28/24 Rx 30 mg 24hr capsule,extend release dextroamphetamine-am phetamine ER 30 mg PO QAM 30 days #30 caps 10/1 3/25 10/13/25 Rx 30 mg 24hr capsule,extend release fluoxetine 20 mg capsule 20 mg PO QDAY #30 caps 11/28/24 Rx PFSH Medical History Tachycardia Depression, unspecified Seasonal depression DARSHAN (obstructive sleep apnea) Hypersomnolence ADHD Concentration deficit Morbid obesity Hyperlipidemia Bilateral lower extremity edema Hypertension Attention deficit disorder Severe malnutrition Respiratory failure with hypoxia Respiratory failure Pneumonia due to COVID-19 virus Obesity (BMI 30-39.9) Broken wrist Family History Father Arthritis Grandfather Cancer Mother Hypertension Son Autism ADHD Other Breast cancer Social History Smoking Status: Never smoker Smokeless tobacco user: chewing tobacco alcohol intake: current alcohol intake frequency: a few times a month Alcohol type: beer substance use type: does not use what type of physical activity do you participate in: none HPI History of Present Illness History provided by: patient HPI: Cristi Torre is a 39 year old male who presents today for follow up evaluation. Patient reports that things have been stressful. Having some current truck troubles and was borrowing his dad's car and it had problems. Also has been working on repairing a trailer he had totaled. Does feel like he has been [place] lately and has been this way about 5 days per week. Work continues to be fairly stressful and busy. Does continues to have some low back pain. Sleep has been off and on. Finds that he spends a significant amount of time in bed on the weekends. Does admit to feeling depressed. Denies any SI HI or AVH. Review of Systems Constitutional Denies: fever(s), chills or change in weight Eyes Denies: change in vision or blurry vision Ears, Nose, Mouth, Throat Reports: neck pain; Denies: throat pain or change in hearing Cardiovascular Denies: chest pain, palpitations or dyspnea Respiratory Denies: dyspnea, cough or wheezing Gastrointestinal Denies: abdominal pain, nausea, vomiting, diarrhea or constipation Genitourinary Denies: dysuria or urinary frequency Musculoskeletal Reports: neck pain; Denies: back pain, joint pain or muscle weakness Integumentary/Breast Denies: rash or new lesions Neurological Denies: headache(s), dizziness or confusion Endocrine Denies: excessive sweating Hematologic/Lymphati c Denies: easy bruising or easy bleeding Allergic/Immunologic Denies: wheezing Exam Mental Status Exam - Psych Appearance adequately groomed Attitude withdrawn Activity/Motor Behavior MSE activity/motor behavior finding no adventitious movements Speech regular rate, regular volume and regular prosody Mood depressed Affect restricted Thought Process linear (more content not included)... Normal [facility] Internal Medicine Office Vis iton 10-12-2024 Internal Medicine Office Visit [facility] [address] [place] [address] [place] [address] OFFICE VISIT Date of Service: 10/12/24 MR#: [id number] Acct: [id number] Name: CRISTI TORRE Rep #: [id number] : 1985 Provider: Dr. 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 Is patient in pain?: No Allergies No Known Allergies Allergy (Verified 10/12/24 08:16) Medications ???Medication ???Instructions ???Recorded ???Confirmed ???Type multivitamin 1 tab PO DAILY 01/01/22 10/12/24 H istory dextroamphetamine-am phetamine 10 10 mg PO BID 30 days #60 tabs /0 05/1010/12/24 Rx mg tablet dextroamphetamine-am phetamine ER 30 mg PO QAM 30 days #30 caps 05/1010/12/24 Rx 30 mg 24hr capsule,extend release olmesartan 20 mg tablet 20 mg PO DAILY #90 tabs 10/12/24 0 10/12/24 Rx rosuvastatin 20 mg tablet 20 mg PO DAILY #90 tabs 10/12/24 0 10/12/24 Rx triamterene 37.5 1 tab PO DAILY #90 tabs 10/12/24 0 10/12/24 Rx mg-hydrochlorothiazi de 25 mg tablet PFSH Medical History Tachycardia Depression, unspecified Seasonal depression DARSHAN (obstructive sleep apnea) Hypersomnolence ADHD Concentration deficit Morbid obesity Hyperlipidemia Bilateral lower extremity edema Hypertension Attention deficit disorder Severe malnutrition Respiratory failure with hypoxia Respiratory failure Pneumonia due to COVID-19 virus Obesity (BMI 30-39.9) Broken wrist Family History Father Arthritis Grandfather Cancer Mother Hypertension Son Autism ADHD Other Breast cancer Social History Smoking Status: Never smoker Smokeless tobacco user: chewing tobacco alcohol intake: current alcohol intake frequency: a few times a month Alcohol type: beer substance use type: does not use what type of physical activity do you participate in: none HPI HPI Chief Complaint: Follow-up chronic conditions Details: CRISTI TORRE, is a 39 M who presents to the office today for follow-up of his chronic medical conditions. No acute concerns at this time. History of hypertension currently on losartan and triamterene hydrochlorothiazide. He has been out of Olmesartan for some time. Initial blood pressure was elevated at 144/94 however repeat after rest was 130/84. Largely sedentary but he states that he tries to keep busy when he can. Other chronic medical conditions are stable. History of hyperlipidemia currently on rosuvastatin. Bilateral lower extremity edema noted on exam. 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 ROS Const Constitutional: No body ache, chills, excessive sweating, fatigue, fever(s), frequent falls, headache(s), snoring, weakness, sleep problems or change in appetite Eyes Eyes: No blurry vision, change in vision, vision loss, dry eyes, eye pain or Light sensitivity ENT ENT: No abnormal hearing, ear or mastoid pain, tinnitus, nasal congestion, headache(s), neck pain or sore throat Resp Respiratory: No cough, excessive phlegm production, hemoptysis, shortness of breath, snoring or wheezing Cardio Cardiology: No chest pain at rest, chest pain with exertion, excessive sweating, shortness of breath, dyspnea on exertion, lightheadedness, orthopnea or palpitations Gastro GI: No abdominal pain, change in bowel habits, constipation, cramping, diarrhea, nausea/dyspepsia or vomiting Genitourinary Male: No burning urination, painful urination, urinary incontinence or urinary frequency Musc Musculoskeletal: No abnormal gait, joint pain, back pain, limited range of motion, neck pain or numbness Skin Skin: No dry skin, redness, lesions, itchy eyes, rash or wounds Neuro Neurology: No abnormal gait, abnormal hearing, weakness, frequent falls, headache(s), memory loss or numbness Psych Psychiatric: No anxiety, No change in appetite, No depression, No memory loss and No Thoughts of harming yourself/Others Endo Endocrine: No cold intolerance, excessive sweating, fatigue, flushing, heat intolerance, increased thirst/drinking or increased hunger Aller/Imm Allergy/Immunologic: No itchy eyes, seasonal allergy symptoms, hives or wheezing Arthur/Lymp Hematologic/Lymphati c: No easy bleeding, easy bruising, enlarged lymph nodes or (more content not included)... Normal [facility] MR/BMS.BPon 08-18-2024 MR/BMS.BP [place] [id number] [facility] [address] [place] [address] OFFICE VISIT Date of Service: 08/18/24 MR#: [id number] Acct: [id number] Name: TRINITYGUILLERMOCRISTI CHARLY Rep #: [id number] : 1985 Provider: Dr. Juan Bradley se, DO Age/Sex: 39/M Location[place] [facility] Status: Signed Intake Vital Signs 05/19/24 16:34 08/18/24 16:22 Height 5 ft 11 in 5 ft 11 in Weight: 291 lb 8 oz BMI 40.6 BP 126/80 H 131/83 H Blood Pressure Location Lt brachial Lt brachial Position Sitting Sitting Respiration 16 16 Pulse 110 H Pulse Source Monitor BP Intake Visit Reasons: 3 M FU Allergies No Known Allergies Allergy (Verified 08/18/24 16:25) Medications ???Medication ???Instructions ???Recorded ???Confirmed ???Type multivitamin 1 tab PO DAILY 01/01/22 08/18/24 H istory olmesartan 20 mg tablet 20 mg PO DAILY #90 tabs 07/01/24 0 08/18/24 Rx rosuvastatin 20 mg tablet 20 mg PO DAILY #90 tabs 07/01/24 0 08/18/24 Rx triamterene 37.5 1 tab PO DAILY #90 tabs 07/01/24 0 08/18/24 Rx mg-hydrochlorothiazi de 25 mg tablet dextroamphetamine-am phetamine 10 10 mg PO BID 30 days #60 tabs 05/1008/18/24 Rx mg tablet dextroamphetamine-am phetamine 10 10 mg PO BID 30 days #60 tabs 05/1008/18/24 Rx mg tablet dextroamphetamine-am phetamine 10 10 mg PO BID 30 days #60 tabs 05/1008/18/24 Rx mg tablet dextroamphetamine-am phetamine ER 30 mg PO QAM 30 days #30 caps 05/1008/18/24 Rx 30 mg 24hr capsule,extend release dextroamphetamine-am phetamine ER 30 mg PO QAM 30 days #30 caps 05/1008/18/24 Rx 30 mg 24hr capsule,extend release dextroamphetamine-am phetamine ER 30 mg PO QAM 30 days #30 caps 05/1008/18/24 Rx 30 mg 24hr capsule,extend release escitalopram oxalate 5 mg tablet 5 mg PO DAILY #30 tabs 08/18/24 Rx PFSH Medical History (Updated 03/09/24 @ 13:[address] Chas Kaur MD) Tachycardia Depression, unspecified Seasonal depression DARSHAN (obstructive sleep apnea) Hypersomnolence ADHD Concentration deficit Morbid obesity Hyperlipidemia Bilateral lower extremity edema Hypertension Attention deficit disorder Severe malnutrition Respiratory failure with hypoxia Respiratory failure Pneumonia due to COVID-19 virus Obesity (BMI 30-39.9) Broken wrist Family History Father Arthritis Grandfather Cancer Mother Hypertension Son Autism ADHD Other Breast cancer Social History Smoking Status: Never smoker Smokeless tobacco user: chewing tobacco alcohol intake: current alcohol intake frequency: a few times a month Alcohol type: beer substance use type: does not use what type of physical activity do you participate in: none HPI History of Present Illness History provided by: patient HPI: Cristi Torre is a 39 year old male who presents today for follow up evaluation. [place] [facility] [place] weekend [place] [facility] to [place]. Mood has been ups and downs. Does feel like it is mostly on Sundays when he is tired. Continues to be somewhat stressed in regards to driving. Has been getting up occasional at night, but otherwise is largely stable. Has been going to a chiropractor about once per week. Denies SI/HI or AVH. Review of Systems Constitutional Denies: fever(s), chills or change in weight Eyes Denies: change in vision or blurry vision Ears, Nose, Mouth, Throat Reports: neck pain; Denies: throat pain or change in hearing Cardiovascular Denies: chest pain, palpitations or dyspnea Respiratory Denies: dyspnea, cough or wheezing Gastrointestinal Denies: abdominal pain, nausea, vomiting, diarrhea or constipation Genitourinary Denies: dysuria or urinary frequency Musculoskeletal Reports: neck pain; Denies: back pain, joint pain or muscle weakness Integumentary/Breast Denies: rash or new lesions Neurological Denies: headache(s), dizziness or confusion Endocrine Denies: excessive sweating Hematologic/Lymphati c Denies: easy bruising or easy bleeding Allergic/Immunologic Denies: wheezing Exam Mental Status Exam - Psych Appearance adequately groomed Attitude cooperative Activity/Motor Behavior MSE activity/motor behavior finding no adventitious movements Speech regular rate, regular volume and regular prosody Mood OK Affect full range Thought Process linear, logical and coherent Thought Content no delusions and no hallucinations Suicidal Ideation none Homicidal Ideation none Attention impaired Concentration impaired Sensorium/Orientatio n awake, alert and oriented x3 Memory/Cognition other (appropriate for stated age) (more content not included)... Normal [facility] MR/BMS.BPon 05-19-2024 MR/BMS.BP [facility] [address], [address] [place] [address] OFFICE VISIT Date of Service: 05/19/24 MR#: [id number] Acct: [id number] Name: CRISTI TORRE Rep #: [id number] : 1985 Provider: Dr. Juan Bradley se, DO Age/Sex: 39/M Location[place] [facility] [place]: Signed Intake Vital Signs 03/09/24 13:16 05/19/24 16:34 Height 5 ft 11 in 5 ft 11 in Weight: 289 lb BMI 40.3 BP 138/80 H 126/80 H Blood Pressure Location Lt brachial Lt brachial Position Sitting Sitting Respiration 16 16 Pulse 111 H 110 H Pulse Source Monitor Monitor Temp 97.3 F L Pulse Oximetry (%) 98 Oxygen Delivery Method room air BP Intake Visit Reasons: 3 M FU Accompanied by: Self Allergies No Known Allergies Allergy (Verified 05/19/24 16:35) Medications ???Medication ???Instructions ???Recorded ???Confirmed ???Type multivitamin 1 tab PO DAILY 01/01/22 05/19/24 H istory olmesartan 20 mg tablet 20 mg PO DAILY #90 tabs 12/08/23 0 05/19/24 Rx rosuvastatin 20 mg tablet 20 mg PO DAILY #90 tabs 12/24/23 0 05/19/24 Rx triamterene 37.5 1 tab PO DAILY #90 tabs 01/22/24 0 05/19/24 Rx mg-hydrochlorothiazi de 25 mg tablet dextroamphetamine-am phetamine 10 10 mg PO BID 30 days #60 tabs 0 05/1005/19/24 Rx mg tablet dextroamphetamine-am phetamine ER 30 mg PO QAM 30 days #30 caps 05/1005/19/24 Rx 30 mg 24hr capsule,extend release escitalopram oxalate 10 mg tablet 10 mg PO DAILY #30 tabs 05/19/24 05/19/24 Rx (Lexapro) [facility] Medical History (Updated 03/09/24 @ 13:[address] Chas Kaur MD) Tachycardia Depression, unspecified Seasonal depression DARSHAN (obstructive sleep apnea) Hypersomnolence ADHD Concentration deficit Morbid obesity Hyperlipidemia Bilateral lower extremity edema Hypertension Attention deficit disorder Severe malnutrition Respiratory failure with hypoxia Respiratory failure Pneumonia due to COVID-19 virus Obesity (BMI 30-39.9) Broken wrist Family History Father Arthritis Grandfather Cancer Mother Hypertension Son Autism ADHD Other Breast cancer Social History Smoking Status: Never smoker Smokeless tobacco user: chewing tobacco alcohol intake: current alcohol intake frequency: a few times a month Alcohol type: beer substance use type: does not use what type of physical activity do you participate in: none HPI History of Present Illness History provided by: patient HPI: Cristi Torre is a 39o year old male who presents today for follow up evaluation. Had to start driving again because of how busy at work they have been. Doesn't want to be driving but they have been too busy to do so. 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 Has been having some back pain secondary to driving. Hours are somewhat better, but really variable depending on what loads he's given. Feels like mood has been somewhat up and down. Thinks that this is partially because of seasonal symptoms. Sleep has been fair, but does at times depend on his dogs waking up, particularly if storming. Denies SI/HI or AVH. Review of Systems Constitutional Denies: fever(s), chills or change in weight Eyes Denies: change in vision or blurry vision Ears, Nose, Mouth, Throat Denies: throat pain, neck pain or change in hearing Cardiovascular Denies: chest pain, palpitations or dyspnea Respiratory Denies: dyspnea, cough or wheezing Gastrointestinal Denies: abdominal pain, nausea, vomiting, diarrhea or constipation Genitourinary Denies: dysuria or urinary frequency Musculoskeletal Denies: back pain, neck pain, joint pain or muscle weakness Integumentary/Breast Denies: rash or new lesions Neurological Denies: headache(s), dizziness or confusion Endocrine Denies: excessive sweating Hematologic/Lymphati c Denies: easy bruising or easy bleeding Allergic/Immunologic Denies: wheezing Exam Mental Status Exam - Psych Appearance adequately groomed Attitude cooperative Activity/Motor Behavior MSE activity/motor behavior finding no adventitious movements Speech regular rate, regular volume and regular prosody Mood OK Affect full range Thought Process linear, logical and coherent Thought Content no delusions and no hallucinations Suicidal Ideation none Homicidal Ideation none Attention impaired Concentration impaired Sensorium/Orientatio n awake, alert and oriented x3 Memory/Cognition other (appropriate for stated age) Insight fair Judgement good Assessment Plan Assessment Plan (1) ADHD: Qualifiers: Attention deficit-hyperactivit y disorder type: predominantly inattentive Qualified Code(s): F90.0 - Attention-d (more content not included)... Normal [facility] 12 Lead EKG performed by [facility] on 03-09-2024 12 Lead EKG performed by [facility] [address] [place] [address] 12 Lead EKG performed by [facility] 03/09/24 1334 MR#: [id number] Acct: [id number] Name: CRISTI TORRE Rep #: [id number] : 1985 38 From: Chas Kaur MD Attending Dr: Dr. Chas Kaur MD Status: DEP [facility] Ordering Dr: Chas Kaur MD Date: 03/09/24 Location[place] [facility] Sex: M C Ad[facility]: [facility] Lead EKG performed by [facility] Sinus Rhythm -RSR(V1) -nondiagnostic. PROBABLY NORMAL 03/09/24 1636 Date Chas Kaur MD CC: Dr. 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, [address] Absolute Neut 5.1 X10 3/uL Normal 2.0-7.7 [facility] Comment on above: Performed By: #### L 100.0100, L500.4100, L500.4050 #### [facility] [address] [place], [address] Basophils/100 WBC (Bld) 0.7 % Normal 0-1 [facility] Comment on above: Performed By: #### L 100.0100, L500.4100, L500.4050 #### [facility] [address] [place], [address] Eosinophils/100 WBC (Bld) 1.2 % Normal 0-5 [facility] Comment on above: Performed By: #### L 100.0100, L500.4100, L500.4050 #### [facility] [address] [place], [address] Erythrocyte distribution width (RBC) [Ratio] 13.7 % Normal 11.6-14.6 [facility] Comment on above: Performed By: #### L 100.0100, L500.4100, L500.4050 #### [facility] [address] [place], [address] Hematocrit (Bld) [Volume fraction] 44.0 % Normal 40-54 [facility] Comment on above: Performed By: #### L 100.0100, L500.4100, L500.4050 #### [facility] [address] [place], [address] Hemoglobin (Bld) [Mass/Vol] 14.3 g/dL Normal 13.0-16.5 [facility] Comment on above: Performed By: #### L 100.0100, L500.4100, L500.4050 #### [facility] [address] [place], [address] IG% 0.200 Normal 0.0-0.9 [facility] Comment on above: Result Comment: IG% - Immature Granulocytes (promyelocytes, myelocytes and metamyelocytes) > 1% indicates that a LEFT SHIFT is Present. Performed By: #### L 100.0100, L500.4100, L500.4050 #### [facility] [address] [place], [address] Lymphocytes/100 WBC (Bld) 27.8 % Normal 19-41 [facility] Comment on above: Performed By: #### L 100.0100, L500.4100, L500.4050 #### [facility] [address] [place], [address] MCH (RBC) [Entitic mass] 29.2 pg Normal 27.0-32.0 [facility] Comment on above: Performed By: #### L 100.0100, L500.4100, L500.4050 #### [facility] [address] [place], [address] MCHC (RBC) [Mass/Vol] 32.5 g/dL Normal 32-36 [facility] Comment on above: Performed By: #### L 100.0100, L500.4100, L500.4050 #### [facility] [address] [place], [address] MCV (RBC) [Entitic vol] 90.0 fL Normal 80-94 [facility] Comment on above: Performed By: #### L 100.0100, L500.4100, L500.4050 #### [facility] [address] [place], [address] Monocytes/100 WBC (Bld) 8.9 % Normal 0-10 [facility] Comment on above: Performed By: #### L 100.0100, L500.4100, L500.4050 #### [facility] [address] [place], [address] Neutrophils/100 WBC (Bld) 61.2 % Normal 47-70 [facility] Comment on above: Performed By: #### L 100.0100, L500.4100, L500.4050 #### [facility] [address] [place], [address] Nucleated RBC (Bld) [#/Vol] 0 10*3/uL Normal 0-5 [facility] Comment on above: Performed By: #### L 100.0100, L500.4100, L500.4050 #### [facility] [address] [place], [address] Platelet mean volume (Bld) [Entitic vol] 9.9 fL Normal 6.2-12.0 [facility] Comment on above: Performed By: #### L 100.0100, L500.4100, L500.4050 #### [facility] [address] [place], [address] Platelets (Bld) [#/Vol] 265 10*3/uL Normal 150-450 [facility] Comment on above: Performed By: #### L 100.0100, L500.4100, L500.4050 #### [facility] [address] [place], [address] RBC (Bld) [#/Vol] 4.89 10*6/uL Normal 4.6-6.2 [facility] Comment on above: Performed By: #### L 100.0100, L500.4100, L500.4050 #### [facility] [address] [place], [address] RDW SD 45.5 fl High 35.1-43.9 [facility] Comment on above: Performed By: #### L 100.0100, L500.4100, L500.4050 #### [facility] [address] [place], [address] WBC (Bld) [#/Vol] 8.3 10*3/uL Normal 4.4-11.0 [facility] Comment on above: Performed By: #### L 100.0100, L500.4100, L500.4050 #### [facility] [address] [place], [address] Comprehensive Metabolic Prof ilon 03-09-2024 Albumin [Mass/Vol] 4.4 g/dL Normal 3.2-5.0 [facility] Comment on above: Performed By: #### L 100.0100, L500.4100, L500.4050 #### [facility] [address] [place], [address] Albumin/Globulin [Mass ratio] 1.0 {ratio} Normal 0.9-2.4 [facility] Comment on above: Performed By: #### L 100.0100, L500.4100, L500.4050 #### [facility] [address] [place], [address] ALK P 41 U/L Low 45-117 [facility] Comment on above: Performed By: #### L 100.0100, L500.4100, L500.4050 #### [facility] [address] [place], [address] ALT [Catalytic activity/Vol] 48 U/L Normal 16-61 [facility] Comment on above: Performed By: #### L 100.0100, L500.4100, L500.4050 #### [facility] [address] [place], [address] AST [Catalytic activity/Vol] 24 U/L Normal 15-37 [facility] Comment on above: Performed By: #### L 100.0100, L500.4100, L500.4050 #### [facility] [address] [place], [address] Bilirubin [Mass/Vol] 0.40 mg/dL Normal 0.20-1.00 [facility] Comment on above: Result Comment: For patients on eltrombopag therapy, use of Dimension [place] TBIL is not recommended. Performed By: #### L 100.0100, L500.4100, L500.4050 #### [facility] [address] [place], [address] BUN/CRE 14.8 RATIO Normal 10-20 [facility] Comment on above: Performed By: #### L 100.0100, L500.4100, L500.4050 #### [facility] [address] [place], [address] CA,Total 9.8 mg/dL Normal 8.5-10.1 [facility] Comment on above: Performed By: #### L 100.0100, L500.4100, L500.4050 #### [facility] [address] [place], [address] Chloride [Moles/Vol] 100 mmol/L Normal 98-107 [facility] Comment on above: Performed By: #### L 100.0100, L500.4100, L500.4050 #### [facility] [address] [place], [address] CO2 [Moles/Vol] 26.0 mmol/L Normal 21.0-32.0 [facility] Comment on above: Performed By: #### L 100.0100, L500.4100, L500.4050 #### [facility] [address] [place], [address] Creatinine [Mass/Vol] 1.22 mg/dL Normal 0.70-1.30 [facility] Comment on above: Result Comment: The validity of the calculated GFR GFRAA in patients over 70 years has not been determined. Clinical correlation is essential. Performed By: #### L 100.0100, L500.4100, L500.4050 #### [facility] [address] [place], [address] EST GFR - AA 85 mL/min Normal >60 [facility] Comment on above: Result Comment: Afri can Algerian GFR Calc Performed By: #### L 100.0100, L500.4100, L500.4050 #### [facility] [address] [place], [address] GAP 7 Normal 5-15 [facility] Comment on above: Performed By: #### L 100.0100, L500.4100, L500.4050 #### [facility] [address] [place], [address] GFR/1.73 sq M.predicted among non-blacks MDRD (S/P/Bld) [Vol rate/Area] 70 mL/min/{1.73_m2} Normal >60 [facility] Comment on above: Result Comment: Non- GFR Calc Performed By: #### L 100.0100, L500.4100, L500.4050 #### [facility] [address] [place], [address] Globulin (S) [Mass/Vol] 4.2 g/dL Normal 2.2-4.2 [facility] Comment on above: Performed By: #### L 100.0100, L500.4100, L500.4050 #### [facility] [address] [place], [address] Glucose [Mass/Vol] 112 mg/dL High 74-106 [facility] Comment on above: Result Comment: Fast ing Glucose result from 100 to 125 mg/dL suggests IMPAIRED HOMEOSTASIS per A.D.A. criteria. Performed By: #### L 100.0100, L500.4100, L500.4050 #### [facility] [address] [place], [address] Potassium [Moles/Vol] 4.0 mmol/L Normal 3.5-5.1 [facility] Comment on above: Performed By: #### L 100.0100, L500.4100, L500.4050 #### [facility] [address] [place], [address] Sodium [Moles/Vol] 133 mmol/L Low 136-145 [facility] Comment on above: Performed By: #### L 100.0100, L500.4100, L500.4050 #### [facility] [address] [place], [address] T PROT 8.6 g/dL High 6.4-8.2 [facility] Comment on above: Performed By: #### L 100.0100, L500.4100, L500.4050 #### [facility] [address] [place], [address] Urea nitrogen [Mass/Vol] 18 mg/dL Normal 7-18 [facility] Comment on above: Performed By: #### L 100.0100, L500.4100, L500.4050 #### [facility] [address] [place], [address] Internal Medicine Office Vis willy 03-09-2024 Internal Medicine Office Visit [facility] [address] [place] [address] [place] [address] OFFICE VISIT Date of Service: 03/09/24 MR#: [id number] Acct: [id number] Name: TRINITYGUILLERMOCRISTI CHARLY Rep #: [id number] : 1985 Provider: Dr. 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 fu 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 Accompanied by: Self Is patient in pain?: No Allergies No Known Allergies Allergy (Verified 03/09/24 13:13) Medications ???Medication ???Instructions ???Recorded ???Confirmed ???Type multivitamin 1 tab PO DAILY 01/01/22 03/09/24 History olmesartan 20 mg tablet 20 mg PO DAILY #90 tabs 12/08/23 03/09/24 Rx rosuvastatin 20 mg tablet 20 mg PO DAILY #90 tabs 12/24/23 03/09/24 Rx dextroamphetamine-am phetamine 10 10 mg PO BID 30 days #60 tabs 01/06/24 03/09/24 Rx mg tablet dextroamphetamine-am phetamine ER 30 mg PO QAM 30 days #30 caps 01/06/24 03/09/24 Rx 30 mg 24hr capsule,extend release escitalopram oxalate 10 mg tablet 10 mg PO DAILY #30 tabs 01/06/24 03/09/24 Rx (Lexapro) triamterene 37.5 1 tab PO DAILY #90 tabs 01/22/24 03/09/24 Rx mg-hydrochlorothiazi de 25 mg tablet PFSH Medical History (Updated 03/09/24 @ 13:[address] Chas Kaur MD) Tachycardia Depression, unspecified Seasonal depression DARSHAN (obstructive sleep apnea) Hypersomnolence ADHD Concentration deficit Morbid obesity Hyperlipidemia Bilateral lower extremity edema Hypertension Attention deficit disorder Severe malnutrition Respiratory failure with hypoxia Respiratory failure Pneumonia due to COVID-19 virus Obesity (BMI 30-39.9) Broken wrist Family History Father Arthritis Grandfather Cancer Mother Hypertension Son Autism ADHD Other Breast cancer Social History Smoking Status: Never smoker Smokeless tobacco user: chewing tobacco alcohol intake: current alcohol intake frequency: a few times a month Alcohol type: beer substance use type: does not use what type of physical activity do you participate in: none HPI HPI Chief Complaint: 4m fu Details: CRISTI TORRE, is a 38 M who presents to the office today for follow-up of his chronic conditions. History of hypertension, blood pressure today at 138/80 mmHg. He states that he has not checked it at home in a while because when he did, it was normal. Reports compliance with his medication. Heart rate is elevated, he denies palpitations. Chronic back pain, following up with a chiropractor and has had some maneuvers which are beginning to help per patient. Had pain going down his right lower extremity however this is said to be improving. No change in bowel or bladder habit. Other chronic medical conditions are stable. ROS Const Constitutional: No body ache, chills, excessive sweating, fatigue, fever(s), frequent falls, headache(s), snoring, weakness, weight change or change in appetite Eyes Eyes: No blurry vision, change in vision, bulging eyes, floaters, eye pain or Light sensitivity ENT ENT: No abnormal hearing, ear or mastoid pain, tinnitus, balance problems, nosebleed/epistaxis, nasal congestion, headache(s), neck pain or sore throat Resp Respiratory: No cough, excessive phlegm production, pain on inspiration, shortness of breath, snoring or wheezing Cardio Cardiology: No chest pain at rest, chest pain with exertion, excessive sweating, dyspnea on exertion, lightheadedness, orthopnea or palpitations Gastro GI: No abdominal pain, change in bowel habits, constipation, cramping, diarrhea, nausea/dyspepsia or vomiting Genitourinary Male: No burning urination, painful urination, urinary incontinence or urinary frequency Musc Musculoskeletal: No abnormal gait, joint pain, back pain, limited range of motion, muscle weakness, neck pain or numbness Skin Skin: No dry skin, redness, excessive hair growth, yellowing of the eye, lesions, itchy eyes, rash or wounds Neuro Neurology: No abnormal gait, abnormal hearing, behavioral changes, unsteady gait/balance, weakness, frequent falls, headache(s), memory loss or numbness Psych Psychiatric: No anxiety, No behavioral changes, No change in appetite, No depression, No memory (more content not included)... Normal [facility] Lipid Profileon 03-09-2024 Cholesterol [Mass/Vol] 168 mg/dL Normal 200 [facility] Comment on above: Result Comment: <200 mg/dL Desirable 200-240 mg/dL Borderline >240 mg/dL High Risk Performed By: #### L 100.0100, L500.4100, L500.4050 #### [facility] [address] [place], [address] Cholesterol in HDL [Mass/Vol] 46 mg/dL Normal [facility] Comment on above: Result Comment: The drugs N-Acetylcysteine and Metamizole may falsely depress this assay. Reference Range HDL <40 mg/dL Low HDL Cholesterol HDL >or= 60 mg/dL High HDL Cholesterol Performed By: #### L 100.0100, L500.4100, L500.4050 #### [facility] [address] [place], [address] Cholesterol in LDL [Mass/Vol] 91 mg/dL Normal 0-130 [facility] Comment on above: Performed By: #### L 100.0100, L500.4100, L500.4050 #### [facility] [address] [place], [address] Cholesterol in VLDL [Mass/Vol] 31 mg/dL Normal 5-40 [facility] Comment on above: Performed By: #### L 100.0100, L500.4100, L500.4050 #### [facility] [address] [place], [address] Triglyceride [Mass/Vol] 154 mg/dL Normal [facility] Comment on above: Result Comment: The drugs N-Acetylcysteine and Metamizole may falsely depress this assay. Serum Triglycerides Reference Interval Normal <150 mg/dL Borderline high 150 - 199 mg/dL High 200 - 499 mg/dL Very High > or = 500 mg/dL Performed By: #### L 100.0100, L500.4100, L500.4050 #### [facility] [address] [place], [address] Basic Metabolic Profile (BMP )on 02-01-2024 BUN/CRE 19.2 RATIO Normal 10-20 [facility] Comment on above: Performed By: #### L 500.2500 #### [facility] [address] [place], [address] CA,Total 9.2 mg/dL Normal 8.5-10.1 [facility] Comment on above: Performed By: #### L 500.2500 #### [facility] [address] [place], [address] Chloride [Moles/Vol] 107 mmol/L Normal 98-107 [facility] Comment on above: Performed By: #### L 500.2500 #### [facility] [address] [place], [address] CO2 [Moles/Vol] 30.0 mmol/L Normal 21.0-32.0 [facility] Comment on above: Performed By: #### L 500.2500 #### [facility] [address] [place], [address] Creatinine [Mass/Vol] 1.04 mg/dL Normal 0.70-1.30 [facility] Comment on above: Result Comment: The validity of the calculated GFR GFRAA in patients over 70 years has not been determined. Clinical correlation is essential. Performed By: #### L 500.2500 #### [facility] [address] [place], [address] EST GFR - AA 102 mL/min Normal >60 [facility] Comment on above: Result Comment: Afri can Algerian GFR Calc Performed By: #### L 500.2500 #### [facility] [address] [place], [address] GAP 4 Low 5-15 [facility] Comment on above: Performed By: #### L 500.2500 #### [facility] [address] [place], [address] GFR/1.73 sq M.predicted among non-blacks MDRD (S/P/Bld) [Vol rate/Area] 85 mL/min/{1.73_m2} Normal >60 [facility] Comment on above: Result Comment: Non- GFR Calc Performed By: #### L 500.2500 #### [facility] [address] [place], [address] Glucose [Mass/Vol] 103 mg/dL Normal 74-106 [facility] Comment on above: Result Comment: Fast ing Glucose result from 100 to 125 mg/dL suggests IMPAIRED HOMEOSTASIS per A.D.A. criteria. Performed By: #### L 500.2500 #### [facility] [address] [place], [address] Potassium [Moles/Vol] 4.0 mmol/L Normal 3.5-5.1 [facility] Comment on above: Performed By: #### L 500.2500 #### [facility] [address] [place], [address] Sodium [Moles/Vol] 141 mmol/L Normal 136-145 [facility] Comment on above: Performed By: #### L 500.2500 #### [facility] [address] [place], [address] Urea nitrogen [Mass/Vol] 20 mg/dL High 7-18 [facility] Comment on above: Performed By: #### L 500.2500 #### [facility] [address] [place], [address] MR/BMS.BPon 01-06-2024 MR/BMS.BP [facility] [address], [address] [place] [address] OFFICE VISIT Date of Service: 01/06/24 MR#: [id number] Acct: [id number] Name: CRISTI TORRE Rep #: [id number] : 1985 Provider: Dr. Juan Bradley se, DO Age/Sex: 38/M Location: [facility] Status: Signed Intake Vital Signs 10/12/23 14:57 10/14/23 17:05 01/06/24 15:10 Height 5 ft 11 in 5 ft 11 in 5 ft 11 in Weight: 290 lb BMI 40.4 BP 126/82 H 118/82 H Blood Pressure Location Lt brachial Rt brachial Position Sitting Sitting Respiration 16 16 Pulse 98 106 H Pulse Source Monitor Monitor Temp 97.2 F L Pulse Oximetry (%) 98 Oxygen Delivery Method room air BP Intake Visit Reasons: 3 M FU Accompanied by: Self Allergies No Known Allergies Allergy (Verified 01/06/24 15:13) Medications ???Medication ???Instructions ???Recorded ???Confirmed ???Type multivitamin 1 tab PO DAILY 01/01/22 01/06/24 History triamterene 37.5 1 tab PO DAILY #90 tabs 05/19/23 01/06/24 Rx mg-hydrochlorothiazi de 25 mg tablet olmesartan 20 mg tablet 20 mg PO DAILY #90 tabs 12/08/23 01/06/24 Rx rosuvastatin 20 mg tablet 20 mg PO DAILY #90 tabs 12/24/23 01/06/24 Rx dextroamphetamine-am phetamine 10 10 mg PO BID 30 days #60 tabs 01/06/24 01/06/24 Rx mg tablet dextroamphetamine-am phetamine 10 10 mg PO BID 30 days #60 tabs 01/06/24 01/06/24 Rx mg tablet dextroamphetamine-am phetamine 10 10 mg PO BID 30 days #60 tabs 01/06/24 01/06/24 Rx mg tablet dextroamphetamine-am phetamine ER 30 mg PO QAM 30 days #30 caps 01/06/24 01/06/24 Rx 30 mg 24hr capsule,extend release dextroamphetamine-am phetamine ER 30 mg PO QAM 30 days #30 caps 01/06/24 01/06/24 Rx 30 mg 24hr capsule,extend release dextroamphetamine-am phetamine ER 30 mg PO QAM 30 days #30 caps 01/06/24 01/06/24 Rx 30 mg 24hr capsule,extend release escitalopram oxalate 10 mg tablet 10 mg PO DAILY #30 tabs 01/06/24 01/06/24 Rx (Lexapro) [facility] Medical History Depression, unspecified Seasonal depression DARSHAN (obstructive sleep apnea) Hypersomnolence ADHD Concentration deficit Morbid obesity Hyperlipidemia Bilateral lower extremity edema Hypertension Attention deficit disorder Severe malnutrition Respiratory failure with hypoxia Respiratory failure Pneumonia due to COVID-19 virus Obesity (BMI 30-39.9) Broken wrist Family History Father Arthritis Grandfather Cancer Mother Hypertension Son Autism ADHD Other Breast cancer Social History Smoking Status: Never smoker Smokeless tobacco user: chewing tobacco alcohol intake: current alcohol intake frequency: a few times a month Alcohol type: beer substance use type: does not use what type of physical activity do you participate in: none HPI History of Present Illness History provided by: patient HPI: Cristi Torre is a 38 year old male who presents today for follow up evaluation. 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 Echo that the hours and driving was taking a toll on him. Recently got two dogs which made it too difficult for him to keep the schedule he was keeping. Feels like mood has been fairly stable. Appetite is stable. Medications continue to feel like they are working well. Denies SI/HI or AVH. Review of Systems Constitutional Denies: fever(s), chills or change in weight Eyes Denies: change in vision or blurry vision Ears, Nose, Mouth, Throat Denies: throat pain, neck pain or change in hearing Cardiovascular Denies: chest pain, palpitations or dyspnea Respiratory Denies: dyspnea, cough or wheezing Gastrointestinal Denies: abdominal pain, nausea, vomiting, diarrhea or constipation Genitourinary Denies: dysuria or urinary frequency Musculoskeletal Denies: back pain, neck pain, joint pain or muscle weakness Integumentary/Breast Denies: rash or new lesions Neurological Denies: headache(s), dizziness or confusion Endocrine Denies: excessive sweating Hematologic/Lymphati c Denies: easy bruising or easy bleeding Allergic/Immunologic Denies: wheezing Exam Mental Status Exam - Psych Appearance adequately groomed Attitude cooperative Activity/Motor Behavior MSE activity/motor behavior finding no adventitious movements Speech regular rate, regular volume and regular prosody Mood OK Affect full range (Somewhat more bright than previous) Thought Process linear, logical and coherent Thought Content no delusions and no hallucinations Suicidal Ideation none Homicidal Ideation none Attention impaired Concentration impaired Sensorium/Orientatio n awake (more content not included)... Normal [facility] Absolute lymphocyte counton 10-15-2021 Lymphocytes Auto (Unsp spec) [#/Vol] 1.85 10*3/uL 0.83-4.51 [facility] Work Phone: Basophil percentageon 2021 Basophils/100 WBC (Bld) 0.7 % 0-1 [facility] Work Phone: Bilirubin [Mass/Vol] 0.30 mg/dL 0.20-1.00 [facility] Work Phone: Comment on above: For patients on eltr ombopag therapy, use of Dimension [place] TBIL is not recommended. Chloride [Moles/Vol] 105 mmol/L 98-107 [facility] Work Phone: Cholesterol [Mass/Vol] 276 mg/dL <200 [facility] Work Phone: Comment on above: <200 mg/dL Desirable 200-240 mg/dL Borderline >240 mg/dL High Risk Eosinophils/100 WBC (Bld) 1.5 % 0-5 [facility] Work Phone: Glucose [Mass/Vol] 81 mg/dL 74-106 [facility] Work Phone: Neutrophils (Bld) [#/Vol] 4.5 10*3/uL 2.0-7.7 [facility] Work Phone: Neutrophils/100 WBC (Bld) 61.5 % 47-70 [facility] Work Phone: Potassium [Moles/Vol] 3.9 mmol/L 3.5-5.1 [facility] Work Phone: Protein [Mass/Vol] 7.9 g/dL 6.4-8.2 [facility] Work Phone: Sodium [Moles/Vol] 139 mmol/L 136-145 [facility] Work Phone: Triglyceride [Mass/Vol] 302 mg/dL <199 [facility] Work Phone: Comment on above: The drugs N-Acetylcy steine and Metamizole may falsely depress this assay.Serum Triglycerides Reference Interval Normal <150 mg/dL Borderline high 150 - 199 mg/dL High 200 - 499 mg/dL Very High > or = 500 mg/dL WBC (Bld) [#/Vol] 7.3 10*3/uL 4.4-11.0 [facility] Work Phone: Blood erythrocytes count (nu mber/volume)on 10-15-2021 RBC (Bld) [#/Vol] 4.87 10*6/uL 4.6-6.2 [facility] Work Phone: Blood hemoglobin measurement (mass/volume)on 10-15-2021 Hemoglobin (Bld) [Mass/Vol] 14.5 g/dL 13.0-16.5 [facility] Work Phone: Blood lymphocytes/100 leukoc yteson 10-15-2021 Lymphocytes/100 WBC (Bld) 25.4 % 19-41 [facility] Work Phone: Blood monocytes/100 leukocyt eson 10-15-2021 Monocytes/100 WBC (Bld) 10.6 % 0-10 [facility] Work Phone: Blood platelet mean volumeon 10-15-2021 Platelet mean volume (Bld) [Entitic vol] 10.0 fL 6.2-12.0 [facility] Work Phone: Determination of erythrocyte mean corpuscular volume (MCV)on 10-15-2021 MCV (RBC) [Entitic vol] 89.5 fL 80-94 [facility] Work Phone: Hematocrit Auto (Bld) [Volum e fraction]on 10-15-2021 Hematocrit (Bld) [Volume fraction] 43.6 % 40-54 [facility] Work Phone: Laboratory - Chemistry and C hemistry - challengeon 10-15-2021 ALP [Catalytic activity/Vol] 38 U/L 45-117 [facility] Work Phone: ALT [Catalytic activity/Vol] 43 U/L 16-61 [facility] Work Phone: CO2 [Moles/Vol] 26.0 mmol/L 21.0-32.0 [facility] Work Phone: Globulin (S) [Mass/Vol] 4.0 g/dL 2.2-4.2 [facility] Work Phone: Urea nitrogen/Creatinine [Mass ratio] 11.2 mg/mg 10-20 [facility] Work Phone: Laboratory - Hematology and Cell countson 10-15-2021 Erythrocyte distribution width (RBC) [Entitic vol] 45.1 fL 35.1-43.9 [facility] Work Phone: Erythrocyte distribution width (RBC) [Ratio] 13.7 % 11.6-14.6 [facility] Work Phone: Immature granulocytes/100 WBC (Bld) 0.300 % 0.0-0.9 [facility] Work Phone: Comment on above: IG% - Immature Granu locytes (promyelocytes, myelocytes and metamyelocytes) > 1% indicates that a LEFT SHIFT is Present. MCH (RBC) [Entitic mass] 29.8 pg 27.0-32.0 [facility] Work Phone: Nucleated RBC/100 WBC (Bld) [Ratio] 0 % 0-5 [facility] Work Phone: MCHC Auto (RBC) [Mass/Vol]on 10-15-2021 MCHC (RBC) [Mass/Vol] 33.3 g/dL 32-36 [facility] Work Phone: No Panel Informationon 10-15 Estimated GFR (MDRD) Amer 91 mL/min >60 [facility] Work Phone: Comment on above: GFR Calc Estimated GFR (MDRD) Non-Af Amer 76 mL/min >60 [facility] Work Phone: Comment on above: Non- GFR Calc Platelets bldon 10-15-2021 Platelets (Bld) [#/Vol] 242 10*3/uL 150-450 [facility] Work Phone: Serum or plasma albumin cullen urement (mass/volume)on 10-15-2021 Albumin [Mass/Vol] 3.9 g/dL 3.2-5.0 [facility] Work Phone: Serum or plasma albumin/glob ulin mass ratioon 10-15-2021 Albumin/Globulin [Mass ratio] 1.0 {ratio} 0.9-2.4 [facility] Work Phone: Serum or plasma calcium cullen urement (mass/volume)on 10-15-2021 Calcium [Mass/Vol] 8.6 mg/dL 8.5-10.1 [facility] Work Phone: Serum or plasma cholesterol in HDL measurement (mass/volume)on 10-15-2021 Cholesterol in HDL [Mass/Vol] 38 mg/dL >40 [facility] Work Phone: Comment on above: The drugs N-Acetylcy steine and Metamizole may falsely depress this assay. Reference Range HDL <40 mg/dL Low HDL Cholesterol HDL >or= 60 mg/dL High HDL Cholesterol Serum or plasma cholesterol in VLDL measurement (mass/volume)on 10-15-2021 Cholesterol in VLDL [Mass/Vol] 60 mg/dL 5-40 [facility] Work Phone: Serum or plasma creatinine m easurement (mass/volume)on 10-15-2021 Creatinine [Mass/Vol] 1.16 mg/dL 0.70-1.30 [facility] Work Phone: Comment on above: The validity of the calculated GFR & GFRAA in patients over 70 years has not been determined. Clinical correlation is essential. Serum or plasma low density lipoprotein (LDL) cholesterol measurement (mass/volume)on 10-15-2021 Cholesterol in LDL [Mass/Vol] 178 mg/dL 0-130 [facility] Work Phone: Serum or plasma urea nitroge n measurement (mass/volume)on 10-15-2021 Urea nitrogen [Mass/Vol] 13 mg/dL 7-18 [facility] Work Phone: Thin prep Papanicolaou smear with manual screeningon 10-15-2021 Thin prep Papanicolaou smear with manual screening 19 U/L 15-37 [facility] Work Phone: Thin prep Papanicolaou smear with manual screening 8 5-15 [facility] Work Phone: Vital Signs Date Time Vital Sign Value Performing Clinician Faci lity 10-15-2021 14:28-0400 Body height 180.[address] Tessy Kenyon Work Phone: [facility] Work Phone: 10-15-2021 14:28-0400 Body mass index (BMI) [Ratio] 42 kg/m2 Dr. Tessy Kenyon Work Phone: [facility] Work Phone: 10-15-2021 14:28-0400 Body temperature 98.3 [degF] Dr. Tessy Kenyon Work Phone: [facility] Work Phone: 10-15-2021 14:28-0400 Body weight 136.[address] Tessy Kenyon Work Phone: [facility] Work Phone: 10-15-2021 14:28-0400 Diastolic blood pressure 90 mm[Hg] Dr. Tessy Kenyon Work Phone: [facility] Work Phone: 10-15-2021 14:28-0400 Heart rate 92 /min Dr. Tessy Kenyon Work Phone: [facility] Work Phone: 10-15-2021 14:28-0400 Respiratory rate 18 /min Dr. Tessy Kenyon Work Phone: [facility] Work Phone: 10-15-2021 14:28-0400 SaO2% (BldA) [Mass fraction] 97 % Dr. Tessy Kenyon Work Phone: [facility] Work Phone: 10-15-2021 14:28-0400 Systolic blood pressure 130 mm[Hg] Dr. Tessy Kenyon Work Phone: [facility] Work Phone: Encounters Encounter Date Encounter Type Care Provider Facility Start: 11-28-2024 End: 11-28-2024 ambulatory Juan L Seese Facility:[facility] Start: 11-16-2024 ambulatory Juan L Seese Facility :[facility] Start: 10-12-2024 End: 10-12-2024 ambulatory Efewongbe Oleghe Facility:[facility] Start: 08-18-2024 End: 08-18-2024 ambulatory Juan L Seese Facility:[facility] Start: 05-19-2024 End: 05-19-2024 ambulatory Juan L Seese Facility:[facility] Start: 03-09-2024 End: 03-09-2024 ambulatory [place] Oleghe Facility:[facility] Start: 03-09-2024 End: 03-09-2024 [facility] Start: 02-01-2024 End: 02-01-2024 [facility] Start: 01-06-2024 End: 01-06-2024 ambulatory Juan L Seese Facility:[facility] Start: 10-15-2021 End: 10-15-[address] Tessy Kenyon Work Phone: [facility] Work Phone: Start: 10-15-2021 End: 10-15-[address] Tessy Kenyon Work Phone: [facility] Plan of Treatment Date Care Activity Detail Author Start: 10-15-2021 Patient referral [facility] Work Phone: Patient referral [facility] Work Phone: Payers Date Payer Category Payer Self-pay [id number] 2023 Unknown [id number] Private Health Insurance [id number] Unknown MED [employer] [place] [id number] Unknown [employer] RVICES EHP [id number] Unknown UNINSURED [id number] RELATED [id number] Unknown [id number] Unknown [id number] 462 Unknown [id number] 462 Unknown [id number] 462 Unknown [id number] 462 Unknown [id number] 462 Unknown [id number] 462 Unknown [id number] 462 Unknown [id number] 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 Reason for Visit Bilateral lower extr emity edema Attention deficit disorder Hypertension Family History No Family History Records Found Relationship Condition Age at Onset Recorded Date/T pedro Not Specified Malignant neoplasm of breast Unknown father Arthritis Unknown grandfather Malignant neoplasm Unknown mother Hypertension Unknown son Autistic disorder Unknown Attention deficit hy peractivity disorder (ADHD) Unknown Advance Directives No Advanced Directives Records Found Advance Directive Response Recorded Date/ Time Living Will No February 07 12:59am 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 This clinical summary was aggregated from multiple sources. Caution should be exercised in using it in the provision of clinical care. This summary normalizes information from multiple sources, and as a consequence, information in this document may materially change the coding, format and clinical context of patient data. In addition, data may be omitted in some cases. CLINICAL DECISIONS SHOULD BE BASED ON THE PRIMARY CLINICAL RECORDS. [facility] [employer] provides no warranty or guarantee of the accuracy or completeness of information in this document.
== END | disposition home or self-care (01) ==
LOC: LAB 14:34
PROVIDERS: PCP Internal Medicine; Referring Provider Internal Medicine; Visit Provider Internal Medicine
DX: M54.9 Dorsalgia, unspecified (principal); G89.29 Other chronic pain
CPT/HCPCS: 36415; 72110; 80053; 80061; 85025